=== PATIENT | male | born 1960 | race Caucasian/White ===

== ENCOUNTER 2016-07-14 18:48 | Inpatient (IN) | payer MEDICARE ==
[~2016-07-14] VITALS: Ht 182.9 cm; Wt 97.5 kg
[~2016-07-14 18:48] MED LIST: ACETAMINOPHEN500 M1 PO; CIALIS5 MG PO; GLUCOPHAGE1000 MG; HYDROCODONE-APA1 TAB PO; IPRAT-ALBUT 0.5-3 ML UPD; K-DUR20 MEQ PO; MEGACE40 MG PO; MULTIPLE VITAMI1 TA1 PO; ORAPRED ODT30 MG/TAB PO; PREDNISONE10 MG PO; PREDNISONE20 MG PO; PRILOSEC20 MG PO; TESTOSTERON200 MG/ML IM; VITAMIN B-1000 MCG/M IM
--- NOTE | 2016-07-14 22:25 | NUR ---
2200 PATIENTS PANTS WERE CUT OFF AND STATED THROW THEM AWAY, FREIDA.
--- NOTE | 2016-07-14 22:56 | NUR ---
2200 PATIENT HAS RED SPLOTCHED SKIN, THAT WAS NOTED, FREIDA.
[2016-07-14 23:40] VITALS: BP 154/72
--- NOTE | 2016-07-14 23:41 | NUR ---
RECIEVED PT VIA STRETCHER, ACCOMPANIED BY FAMILY, ASSESSMENT COMPLETED, RIGHT ACW PORT ACCESSED IN OR WITH FLUIDS INFUSING TO GRAVITY, DSG TO LLE CDI, ORIENTED PATIENT TO ROOM AND USE OF CALL LIGHT, NO ACUTE DISTRESS NOTED, WILL CONINUE TO MONITOR, CL IN REACH
[2016-07-14 23:55] VITALS: BP 151/82
--- NOTE | 2016-07-14 23:59 | NUR ---
SPECIAL MACHINE STITCHER SET UP AND INITIATED PER ORDERS, PT EDUCATED ON USE, VOICED UNDERSTANDING, SR'S UP X2, CL IN REACH
[2016-07-15] VITALS (11 sets, daily range): BP systolic 128–157; BP diastolic 65–94; Ht 182.9 cm; Wt 97.5 kg
--- NOTE | 2016-07-15 00:56 | NUR ---
SOLUMEDROL AND VANC ADMINISTERED PER ORDERS, PT MADELEINE WELL, DENIES NEEDS AT THIS TIME, SR'S UP X2, CL IN REACH
[2016-07-15 06:00] LABS: BASOPHILS 0.1 % (0.0-2.0); EOSINOPHILS 0 % (0-7); HEMATOCRIT 39.1 % (42.0-54.0); HEMOGLOBIN 11.6 g/dL (13.5-17.5); IMMATURE GRANULOCYTES 1.3 % (0-5); LYMPHOCYTES 3.1 % (15-50); MCH 22.6 pg (26.0-34.0); MCHC 29.7 g/dL (31.0-37.0); MCV 76.1 fL (80.0-100.0); MEAN PLATELET VOLUME 10.5 fL (7.4-10.4); MONOCYTES 8.7 % (2-11); NEUTROPHILS 86.8 % (40-80); PLATELET COUNT 168 10x3/uL (130-400); RBC 5.14 10x6/uL (4.20-6.10); RDW 21.1 % (11.5-14.5); WBC 18.3 10x3/uL (4.8-10.8)
[2016-07-15 06:25] LABS: ALBUMIN 3.1 g/dL (3.4-5.0); ANION GAP 17.1 mmol/L (8-16); BILIRUBIN - TOTAL 0.53 mg/dL (0.2-1.3); CALCIUM 8.6 mg/dL (8.5-10.1); CARBON DIOXIDE 23.5 mmol/L (21.0-32.0); CREATININE - SERUM 1.3 mg/dL (0.6-1.3); MAGNESIUM - SERUM 1.4 mg/dL (1.8-2.4); POTASSIUM - SERUM 4.6 mmol/L (3.5-5.1)
--- NOTE | 2016-07-15 07:15 | NUR ---
SLEEPING QUIETLY AT PRESENT RESP EVEN AND UNLABORED STRUCTURAL STEEL EQUIPMENT ERECTOR IN PLACE DSG INTACT TO LEFT LOWER LEG AT PRESENT.
--- NOTE | 2016-07-15 09:45 | NUR ---
MEDS GIVEN SKIDDER IN PLACE QUIET N/C AT PRESENT.
--- NOTE | 2016-07-15 12:00 | NUR ---
LUNCH SERVED TAKEN 100
--- NOTE | 2016-07-15 14:00 | NUR ---
VISITORS AT BEDSIDE DSG CONT TO LEFT LOWER LEG AT PRESENT.
--- NOTE | 2016-07-15 16:00 | NUR ---
QUIET IN ROOM AT PRESENT DENIES ANY NEEDS AT THIS TIME.
--- NOTE | 2016-07-15 17:36 | NUR ---
VS PLACED WOUND VAC TO LEFT LOWER LEG.
[2016-07-16] VITALS: BP 142/79
--- NOTE | 2016-07-16 03:51 | NUR ---
REC'D. DURING WALKING ROUNDS IN BED RESP. DEEP AND EVEN.WOUNDVAC INTACT LLE.FOOT WARM HYPERSENSITIVE TO TOUCH.PEDAL PULSE PRESENT.MINIMAL SWELLING OBSERVED DENIES NUMBNESS. WILL CONTINUE TO MONITOR FOR ANY CHGES.IN NEUROVASCULAR STATUS AND FOLLOW CURRENT PLAN OF CARE.
--- NOTE | 2016-07-16 03:57 | NUR ---
PT IS AWAKE WITH THE TV ON AND NO DISTRESS NOTED. HE TALKED WITH THIS NURSE FOR A SHORT TIME AND STATED HE HAD NO NEEDS OR COMPLAINTS AT THIS TIME. RESPIRATIONS ARE EVEN AND UNLABORED. THE BED IS LOW, RAILS UP X'S 2 WITH THE CALL LIGHT AT HAND.
[2016-07-16 04:00] VITALS: BP 112/70
--- NOTE | 2016-07-16 08:16 | NUR ---
AWAKE AND ALERT. ORIENTED X3. NO C/O AT THIS TIME. LUNGS ARE CLEAR BILATERALLY, NO COUGH NOTED. SKIN IS INTACT WITHOUT REDNESS EXCEPT WOUND TO LEFT LEG WHICH HAS A WOUND VAC IN PLACE WITH SEROUS SANGUINESS OUTPUT. RIGHT PORT PATENT WITHOUT REDNESS AT INSERTION SITE. DENIES NEEDS.
[2016-07-16 08:25] VITALS: BP 120/70
--- NOTE | 2016-07-16 09:15 | NUR ---
VANC TROUGH 3.9.
--- NOTE | 2016-07-16 10:00 | NUR ---
RESTING QUIETLY IN BED. VISITORS IN ROOM.
--- NOTE | 2016-07-16 12:15 | NUR ---
LUNCH SERVED IN ROOM. FEEDS SELF. DENIES NEEDS.
[2016-07-16 12:48] VITALS: BP 151/79
--- NOTE | 2016-07-16 16:00 | NUR ---
DRESSING CHANGED TO RIGHT PORT USING STERILE TECHNIQUE. NEEDLE ALSO CHANGED AT THIS TIME.
[2016-07-16 16:26] VITALS: BP 134/73
--- NOTE | 2016-07-16 17:00 | NUR ---
FSBS 240. GIVEN 8 UNITS REGULAR INSULIN SUBQ PER SS. SUPPER SERVED IN ROOM.
--- NOTE | 2016-07-16 18:46 | NUR ---
NO CHANGES NOTED AT THIS TIME. DENIES NEEDS.
--- NOTE | 2016-07-16 19:54 | NUR ---
FROM 1919-PT SEEN AND ASSESSED. COMPLAINTS OF ACHY AND BURNING FROM WOUND VAC TO LEFT LEG BUT STATES COMPANY TRUCK DRIVER HELPS. FLUSHED APPEARANCE BUT IS ON STERIODS. STATES FOR SURGERY FOR SKIN GRAFT ON MONDAY. NO NEEDS AT THIS TIME
[2016-07-16 20:00] VITALS: BP 130/72
[2016-07-17] VITALS: BP 107/66
--- NOTE | 2016-07-17 00:47 | NUR ---
REC'D IN BED AWAKE AND ALERT. NO C/O NOTED OR VOICED. C/L IN REACH AT BEDSIDE.
[2016-07-17 04:00] VITALS: BP 137/80
--- NOTE | 2016-07-17 07:25 | NUR ---
PATIENT RECEIVED ALERT IN BED. NO SIGNS OF DISTRESS NOTED. WOUND VAC INTACT. SIDE RAILS UP X2. BED IN LOW POSITION. CALL LIGHT AND ECONOMIC DEVELOPMENT SPECIALIST BUTTON IN REACH. DENIES NEEDS. WILL CONTINUE TO MONITOR.
[2016-07-17 07:56] VITALS: BP 127/77
--- NOTE | 2016-07-17 08:25 | NUR ---
PATIENT ALERT IN BED WATCHING TV. NO SIGNS OF DISTRESS NOTED. SCHEDULED MEDICATION ADMINISTERED. DENIES NEEDS. SIDE RAILS UPX 2. BED IN LOW POSITION. CALL LIGHT IN REACH.
[2016-07-17 11:38] LABS: BASOPHILS 0.1 % (0.0-2.0); EOSINOPHILS 0 % (0-7); HEMATOCRIT 36.2 % (42.0-54.0); HEMOGLOBIN 11.1 g/dL (13.5-17.5); LYMPHOCYTES 3.8 % (15-50); MCH 22.8 pg (26.0-34.0); MCHC 30.7 g/dL (31.0-37.0); MCV 74.5 fL (80.0-100.0); MEAN PLATELET VOLUME 10.3 fL (7.4-10.4); MONOCYTES 9.1 % (2-11); PLATELET COUNT 147 10x3/uL (130-400); RBC 4.86 10x6/uL (4.20-6.10); RDW 20.5 % (11.5-14.5); WBC 16.1 10x3/uL (4.8-10.8)
--- NOTE | 2016-07-17 11:42 | NUR ---
PATIENT ALERT IN BED. NO SIGNS OF DISTRESS NOTED. ACCU CHECK 235. INSULIN PER SLIDING SCALE. DENIES NEEDS. SIDE RAILS UP X2. BED IN LOW POSITION. CALL LIGHT IN REACH.
[2016-07-17 11:58] LABS: ANION GAP 14.3 mmol/L (8-16); BILIRUBIN - TOTAL 0.45 mg/dL (0.2-1.3); CARBON DIOXIDE 25.7 mmol/L (21.0-32.0); CREATININE - SERUM 1.3 mg/dL (0.6-1.3)
[2016-07-17 13:02] VITALS: BP 146/84
--- NOTE | 2016-07-17 14:00 | NUR ---
ALERT IN BED VISITING WITH GUESTS. LEFT LEG ELEVATED. DENIES NEEDS. SIDE RAILS UP X2. BED IN LOW POSITION. CALL LIGHT AND CHILD SPECIALIST BUTTON IN REACH.
[2016-07-17 15:56] VITALS: BP 133/82
--- NOTE | 2016-07-17 19:30 | NUR ---
REC'D IN BED AWAKE AND ALERT. RESP EVEN AND UNLABORED WITH NO DISTRESS NOTED. CAN VOICE NEEDS AND WANTS. TURN AND REPOSITION SELF AB JOÃO. HAS WOUND VAC IN USE. ASSESSMENT COMPLETED. C/L IN REACH AT BEDSIDE.
[2016-07-17 21:00] VITALS: BP 140/81
[2016-07-18 01:00] VITALS: BP 134/68
[2016-07-18 04:00] VITALS: BP 112/70
--- NOTE | 2016-07-18 06:09 | NUR ---
PT IN BED WITH NO NEEDS AT THIS TIME. RIGHT PORT PATENT AND FLUIDS ARE RUNNING PER ORDER. DRESSING TO LEFT LOWER OUTER LEG C/D/I. WOUND VAC PATENT. ASSEMBLYMAN OR WOMAN IN PLACE FOR PAIN CONTROL. SIDE RAILS ARE UP X 2. BED IS LOW. CALL LIGHT IN REACH.
--- NOTE | 2016-07-18 07:15 | NUR ---
PATIENT RECEIVED ALERT IN HIGH MORRIS POSITION. NO SIGNS OF DISTRESS NOTED. DENIES NEEDS. SIDE RAILS UP X2. BED IN LOW POSITION. CALL LIGHT IN REACH.
[2016-07-18 07:39] LABS: ALBUMIN 2.8 g/dL (3.4-5.0); ANION GAP 17.4 mmol/L (8-16); BILIRUBIN - TOTAL 0.33 mg/dL (0.2-1.3); CALCIUM 8.3 mg/dL (8.5-10.1); CARBON DIOXIDE 21.9 mmol/L (21.0-32.0); CREATININE - SERUM 1.1 mg/dL (0.6-1.3); POTASSIUM - SERUM 4.3 mmol/L (3.5-5.1); PROTEIN - SERUM 5.2 g/dL (6.4-8.2)
[2016-07-18 07:51] LABS: BASOPHILS 0.1 % (0.0-2.0); EOSINOPHILS 0 % (0-7); HEMATOCRIT 34.2 % (42.0-54.0); HEMOGLOBIN 10.3 g/dL (13.5-17.5); IMMATURE GRANULOCYTES 2.4 % (0-5); MCH 22.4 pg (26.0-34.0); MCHC 30.1 g/dL (31.0-37.0); MCV 74.5 fL (80.0-100.0); MEAN PLATELET VOLUME 10.6 fL (7.4-10.4); NEUTROPHILS 85.5 % (40-80); PLATELET COUNT 146 10x3/uL (130-400); RBC 4.59 10x6/uL (4.20-6.10); RDW 20.7 % (11.5-14.5)
--- NOTE | 2016-07-18 08:12 | NUR ---
PATIENT ALERT IN HIGH MORRIS POSITION EATING BREAKFAST. TOLERATING WELL. SCHEDULED MEDICATION ADMINISTERED. SIDE RAILS UP X2. BED IN LOW POSITION. CALL LIGHT IN REACH.
--- NOTE | 2016-07-18 08:28 | NUR ---
Patient Name: THOR JAMES Admission Status: ER Accout number: [id number] Admission Date: 07-14-2016 : 1960 Admission Diagnosis:LACERATION WITHOUT FOREIGN BODY, LEFT LOWER LEG, INIT E Attending: SAM Current LOS: 4 Anticipated DC Date: Planned Disposition: Primary Insurance: [employer] CHOICE PPO MCR ADVANT Discharge Planning Comments: CM MET WITH PATIENT WITH D/C NEEDS AND PLANS. PATIENT STATED HE LIVES WITH HIS (LEA) AND SHE WILL TAKE HIM HOME AT DISCHARGE. PATIENT STATED HE HAS NO STEPS OR STAIRS AT HIS HOME. PATIENT IS INDEPENDENT WITH HIS CARE AND HAS A WALKER, WHEELCHAIR, AND CANE AT HOME. PATIENTS PCP IS DR. TEJEDA AND USES [facility] AT [facility] FOR HIS PHARMACY. PATIENT STATED HE DOES NOT WANT HOME HEALTH AT DISCHARGE. CM WILL CONTINUE TO FOLLOW PATIENT WITH D/C NEEDS AND PLANS. PCP DR. TEJEDA [facility] - [phone] [facility] - [phone] Clinical Support Nurse: Bianca Vanegas Is the patient Alert and Oriented? Yes 0 * How many steps to enter\exit or inside your home? 0 0 * PCP DR. TEJEDA 0 * Pharmacy [facility] 0 * Preadmission Environment Home with Family 0 * ADLs Independent 0 * Equipment Cane Walker Wheelchair 0 * List name and contact numbers for known caregivers / representatives who currently or will assist patient after discharge: LEA () [phone] * Community resources currently utilized None 0 * Additional services required to return to the preadmission environment? Yes 0 * Can the patient safely return to the preadmission environment? Yes 0 * Has this patient been hospitalized within the prior 30 days at any hospital? No 0 Grand Total: 0
[2016-07-18 08:36] VITALS: BP 128/77
--- NOTE | 2016-07-18 11:22 | NUR ---
PATIENT ALERT IN BED. NO SIGNS OF DISTRESS NOTED. ACCU CHECK 239. INSULIN PER SLIDING SCALE. DENIES NEEDS. SIDE RAILS UP X2. BED IN LOW POSITION. CALL LIGHT IN REACH.
[2016-07-18 12:28] VITALS: BP 109/70
--- NOTE | 2016-07-18 13:26 | NUR ---
WOUND VAC DRESSING CHANGE PER VERBAL ORDER FROM DR. RICHARDSON. LEFT LOWER LE.5CM X 7.5CM X 0.9CM. GENTLY CLEANSED AND PATTED DRY. CAVALON SKIN PREP APPLIED TO SURROUNDING SKIN. ONE PIECE OF BLACK FOAM APPLIED TO WOUND BED. PT TOLERATED WELL. WOUND CARE WILL CONTINUE TO MONITOR.
--- NOTE | 2016-07-18 14:40 | NUR ---
PATIENT ALERT IN BED WATCHING TV. NO SIGNS OF DISTRESS NOTED. CONSENT OBTAINED FOR SCHEDULED PROCEDURE. DENIES NEEDS. SIDE RAILS UP X2. BED IN LOW POSITION. CALL LIGHT AND CABLE REPAIRER BUTTON IN REACH.
[2016-07-18 16:45] VITALS: BP 149/73
--- NOTE | 2016-07-18 17:35 | NUR ---
ALERT IN BED TALKING ON PHONE. NO SIGNS OF DISTRESS NOTED. NO NEEDS VOICED. SIDE RAILS UP X2. BED IN LOW POSITION. CALL LIGHT IN REACH.
--- NOTE | 2016-07-18 19:45 | NUR ---
PATIENT IN SEMI-FOWLERS POSITION. PATIENT DOES NOT NEED ANYTHING AT THIS TIME.
[2016-07-18 21:00] VITALS: BP 143/82
[2016-07-19 01:00] VITALS: BP 144/77
[2016-07-19 04:00] VITALS: BP 136/80
[2016-07-19 05:05] LABS: BASOPHILS 0.1 % (0.0-2.0); EOSINOPHILS 0 % (0-7); HEMOGLOBIN 10.5 g/dL (13.5-17.5); IMMATURE GRANULOCYTES 2.4 % (0-5); LYMPHOCYTES 4.1 % (15-50); MCH 22.3 pg (26.0-34.0); MCV 74.5 fL (80.0-100.0); MEAN PLATELET VOLUME 10.2 fL (7.4-10.4); MONOCYTES 10.4 % (2-11); PLATELET COUNT 155 10x3/uL (130-400); RDW 20.6 % (11.5-14.5); WBC 11.7 10x3/uL (4.8-10.8)
[2016-07-19 05:43] LABS: ALBUMIN 2.9 g/dL (3.4-5.0); ANION GAP 16.4 mmol/L (8-16); BILIRUBIN - TOTAL 0.44 mg/dL (0.2-1.3); CALCIUM 8.2 mg/dL (8.5-10.1); CARBON DIOXIDE 22.8 mmol/L (21.0-32.0); CREATININE - SERUM 1.2 mg/dL (0.6-1.3); POTASSIUM - SERUM 4.2 mmol/L (3.5-5.1); PROTEIN - SERUM 5.8 g/dL (6.4-8.2)
--- NOTE | 2016-07-19 07:40 | NUR ---
ASSESSMENT PER FLOW SHEET.PT WITHOUT DISTRESS.WOUND VAC TO LLE ON AND FUNCTIONING.PT STATES PAIN 7/10 SCALE TO LEFT LOWER LEG, LEAK PATCHER USE INSTRUCTED.NPO FOR SURGEY TODAY.HEPI CLENS AND BED CHANGE COMPLETE.CONSENTS ON CHART.
[2016-07-19 08:00] VITALS: BP 117/66
[2016-07-19 11:44] VITALS: BP 119/70
--- NOTE | 2016-07-19 13:14 | NUR ---
NUTRITION MONITORING & EVAL CHART REVIEWED. SURGERY RESCHEDULED. ADA DIET WITH 100% INTAKE RECENT MEALS. RD FOLLOWING
[2016-07-19 15:58] VITALS: BP 143/74
--- NOTE | 2016-07-19 19:00 | NUR ---
PATIENT SUPINE IN BED WATCHING TV. HOB 20 DEGREES. AAOX4. RR EVEN AND UNLABORED. 0 S/S OF DISTRESS. STATES PAIN IS A 9/10. RIGHT PORT PATENT WITH NO REDNESS OR SWELLING. WOUND VAC TO LLE WITH BANDAGE CDI. SRX2. BED LOW. CALL LIGHT WITHIN REACH.
[2016-07-19 21:00] VITALS: BP 139/68
[2016-07-20 01:00] VITALS: BP 133/66
[2016-07-20 05:39] LABS: BASOPHILS 0.2 % (0.0-2.0); EOSINOPHILS 0 % (0-7); HEMOGLOBIN 10.9 g/dL (13.5-17.5); IMMATURE GRANULOCYTES 2.9 % (0-5); LYMPHOCYTES 4.5 % (15-50); MCH 22.6 pg (26.0-34.0); MCHC 30.3 g/dL (31.0-37.0); MCV 74.7 fL (80.0-100.0); MEAN PLATELET VOLUME 10.2 fL (7.4-10.4); NEUTROPHILS 83.4 % (40-80); PLATELET COUNT 157 10x3/uL (130-400); RBC 4.82 10x6/uL (4.20-6.10); RDW 20.3 % (11.5-14.5); WBC 11.2 10x3/uL (4.8-10.8)
[2016-07-20 06:09] LABS: ALBUMIN 2.9 g/dL (3.4-5.0); BILIRUBIN - TOTAL 0.5 mg/dL (0.2-1.3); CALCIUM 7.9 mg/dL (8.5-10.1); CARBON DIOXIDE 24.1 mmol/L (21.0-32.0); CREATININE - SERUM 1.2 mg/dL (0.6-1.3); POTASSIUM - SERUM 4.1 mmol/L (3.5-5.1); PROTEIN - SERUM 5.7 g/dL (6.4-8.2)
[2016-07-20 07:55] VITALS: BP 134/68
--- NOTE | 2016-07-20 08:20 | NUR ---
ASSESSMEN TPER FLOW SHEET.NPO FOR SURGEY TODAY.HEPI CLENS BATH HAS BEEN COMPLETED.CONSENTS ON CHART.
[2016-07-20 12:05] VITALS: BP 133/76
--- NOTE | 2016-07-20 14:58 | NUR ---
REMAINS NPO FOR SURGERY TODAY.FAMILY AT BEDSIDE.
[2016-07-20 15:38] VITALS: BP 127/72
--- NOTE | 2016-07-20 16:00 | NUR ---
TO OR VIA BED
--- NOTE | 2016-07-20 18:20 | NUR ---
BACK FROM OR,WOUND VAC TO LEFT LOWER LEG IN PLACE AND FUNCTIONING.PT AWAKE AND ALERT,DENIES PAIN.PREVIOUS ORDERS RESUMED.VSS,CONT PLAN OF CARE
[2016-07-20 18:21] VITALS: BP 144/83
--- NOTE | 2016-07-20 19:00 | NUR ---
PATIENT IN BED EATING. AAOX4. RR EVEN AND UNLABORED. 0 S/S OF DISTRESS. STATES PAIN IS AN 8/10. IV TO LEFT WRIST PATENT WITH NO REDNESS OR SWELLING. WOUND VAC TO LLE. AT BEDSIDE. SRX2. BED LOW. CALL LIGHT WITHIN REACH.
[2016-07-20 20:00] VITALS: BP 135/71
--- NOTE | 2016-07-20 22:00 | NUR ---
ASSESSMENT COMPLETE. NIGHTTIME MEDS GIVEN. 8 UNITS HUMULIN GIVEN FOR BS OF 187. NO OTHER NEEDS AT THIS TIME.
[2016-07-21] VITALS: BP 128/73
[2016-07-21 04:00] VITALS: BP 135/81
--- NOTE | 2016-07-21 05:47 | NUR ---
IV TO LEFT WRIST LEAKING. ACCESSED PORT TO RIGHT CHEST.
[2016-07-21 07:05] LABS: BASOPHILS 0.1 % (0.0-2.0); EOSINOPHILS 0 % (0-7); HEMATOCRIT 38.2 % (42.0-54.0); HEMOGLOBIN 11.4 g/dL (13.5-17.5); IMMATURE GRANULOCYTES 2.1 % (0-5); LYMPHOCYTES 7.8 % (15-50); MCH 22.4 pg (26.0-34.0); MCHC 29.8 g/dL (31.0-37.0); MCV 75.2 fL (80.0-100.0); MEAN PLATELET VOLUME 10.3 fL (7.4-10.4); MONOCYTES 5.3 % (2-11); NEUTROPHILS 84.7 % (40-80); PLATELET COUNT 162 10x3/uL (130-400); RBC 5.08 10x6/uL (4.20-6.10); RDW 20.6 % (11.5-14.5); WBC 10.9 10x3/uL (4.8-10.8)
[2016-07-21 07:11] LABS: ALBUMIN 2.9 g/dL (3.4-5.0); BILIRUBIN - TOTAL 0.5 mg/dL (0.2-1.3); CARBON DIOXIDE 25.2 mmol/L (21.0-32.0); CREATININE - SERUM 1.2 mg/dL (0.6-1.3); POTASSIUM - SERUM 4.2 mmol/L (3.5-5.1); PROTEIN - SERUM 5.8 g/dL (6.4-8.2)
[2016-07-21 07:56] VITALS: BP 145/74
[2016-07-21 12:02] VITALS: BP 143/74
--- NOTE | 2016-07-21 15:20 | NUR ---
07/21/2016 15:18 DCP: Discharge Planning Order rec'd for home wound vac - submitted to [facility] for approval. Patient has chosen [facility] for home health provider. ZACH signed. CM will follow.
[2016-07-21 15:31] VITALS: BP 146/80
[2016-07-21] MEDS ORDERED: HYDROCODON-ACE1 EAC7 PO (16:03)
--- NOTE | 2016-07-21 16:05 | NUR ---
07/21/2016 16:01 DCP: Discharge Planning Wound Vac order has been submitted to [facility]. Patient & spouse are insisting they go home today. Nursing has gotten a Wound Vac Via order from Dr. Cortes along with a discharge order. Ava (spouse) will follow up with [facility] & Junior regarding status of home wound vac. referral faxed and called to Viviane with [facility].
--- NOTE | 2016-07-21 18:04 | NUR ---
DISCHARGE INSTRUCTIONS GIVEN AND EXPLAINED TO PT. D/C RT INFUSAPORT AND BANDAID APPLIED. D/C VIA WHEELCHAIR IN STABLE CONDITION. WOUND VAC TO LLE INTACT AND SEND HOME WITH PT.
--- NOTE | 2016-07-22 11:12 | NUR ---
07/22/2016 11:13 DCP: Discharge Planning Signed wound vac order has been faxed to Janine with [facility]. Patients insurance will require referral. Info for referral left for Dr. Cortes.
--- NOTE | 2016-09-14 10:17 | OP ---
PATIENT NAME: THOR JAMES MEDICAL RECORD: [id number] :58 LOCATION:D.MS [place] ADMISSION DATE:07/14/16 SURGEON: RAPHAEL ARZOLA MD DATE OF OPERATION: 07/20/2016 PREOPERATIVE DIAGNOSIS: Avulsion flap type of injury to the left leg. POSTOPERATIVE DIAGNOSIS: Avulsion flap type of injury to the left leg with almost a complete flap necrosis. PROCEDURES: Excisional debridement of left leg, placement of a wound VAC. The debridement included skin and subcutaneous tissue. The debrided portion was 10 cm x 6 cm x 8 cm including skin and subcutaneous tissue. The resulting defect was roughly V-shaped was a 12.8 cm x 11.2 cm x 9.8 cm. SURGEON: Raphael Arzola MD. RN ENDOSCOPY: None. BLOOD LOSS: Minimal. ANESTHESIA: General. COMPLICATIONS: None. The risks, possible complications and alternatives to procedure were explained to the patient. He elects to proceed. OPERATIVE COURSE: The patient was conveyed to the operating room electively on 07/20/2016. General anesthesia was induced by the anesthesia staff. The left lower extremity was sterilely prepped and draped. The end of the flap was clearly necrotic. I began making transverse incisions starting at the distal aspect of the flap and proceeding cephalad. These were about 1 cm to 2 cm apart. I found thrombosed blood vessels and necrotic adipose tissue. I continued these incisions up the flap until I identified a fatty tissue that was alive and had blood flow to it. At this point, I transected the flap. The dimensions of the transection are listed above. Some additional subcutaneous necrotic fatty tissue at the inferior aspect of the wound was excised. The resulting defect as listed above. A wound VAC was then applied. Cellophane type dressings were applied over the wound VAC. The cellophane type dressings were scored and the wound VAC sponge was attached to suction through the suction disc. It held a good "raisin" indicating suction without leakage of air. TRANSINT:[id number] Voice Confirmation ID: [id number] DOCUMENT ID: [id number] RAPHAEL ARZOLA MD at 1017 CC: MICHAEL CORTEZ M.D. [id number] DICTATION DATE: 07/20/161741 HAZARDOUS MATERIALS HANDLER: 07/20/16 2307 DIS IN 07/21/16 [facility] [address] [place] [address]
--- NOTE | 2016-09-14 10:17 | HP ---
PATIENT: THOR JAMES MEDICAL RECORD: [id number] ACCOUNT: [id number] LOCATION:D.MS [place] : 58 ADMISSION DATE: 07/14/16 HISTORY AND PHYSICAL EXAMINATION CHIEF COMPLAINT: Laceration. HISTORY OF PRESENT ILLNESS: The patient presented to the Emergency Room about 45 minutes ago with a very deep cut at the left lower extremity. It appears to go down to the anterior muscular fascia, which would be the fascia and muscle that would dorsiflex the foot. The thing that is worrisome is that this is a watershed area of arterial circulation. Additionally, the patient is a diabetic and he is on prednisone, so this could be a very difficult wound to heal up. I think we need to take him to the operating room and heal it up, it is a skived wound. There is exposed muscle. There is exposed fascia. Like I said, this could be a very difficult wound to heal up. Symptoms came on suddenly. They are not worsening. Palpation aggravates. Nothing alleviates. It is jagged and deep. It is currently not bleeding. He describes the pain as a 9/10. REVIEW OF SYSTEMS: Positive for night sweats. Positive for weight loss. No anorexia. SOCIAL HISTORY: Nonsmoker. PAST MEDICAL AND SURGICAL HISTORY: Crohn's disease, diabetes mellitus, which is noninsulin dependent and squamous cell cancer. ALLERGIES: TOPROL. HOME MEDICINES: Prednisone, omeprazole, metformin, vitamin B12. He is on chemotherapy for squamous cell cancers on the face, multivitamins, potassium chloride and hydrocodone. REVIEW OF SYSTEMS: Negative other than as is described above. PHYSICAL EXAMINATION: GENERAL: The patient does not appear acutely ill. He does appear chronically ill. VITAL SIGNS: Reviewed. HEAD: External ears appear normal. He has a pradeep face. EYES: Extraocular movements are intact. NECK: Trachea is midline. CHEST: No intercostal retractions. PULMONARY: Nonlabored, no stridor. ABDOMEN: Protuberant. EXTREMITIES: As described above. PSYCHIATRIC: Normal affect. NEUROLOGIC: Nonfocal, no lethargy. The patient answers questions appropriately. BACK: No thoracic kyphosis. LYMPHATICS: No lymphangitic streaking of the exposed extremities. IMPRESSION: Large jagged irregular skived laceration with a flap that is watershed area in a patient who has impaired wound healing. HISTORY AND PHYSICAL [id number] THOR JAMES PLAN: Conveyed to the operating room. Washed out the wound there and then repaired the wound. TRANSINT:[id number] Voice Confirmation ID: [id number] DOCUMENT ID: [id number] CHARLIE ARZOLA MD at 1017 CC: [id number] DICTATION DATE: 07/14/161934 PROGRAM DIRECTOR SUBSTANCE ABUSE: 07/14/162020 DIS IN 07/21/16 [place] [id number] [place] [id number]
--- NOTE | 2016-09-14 10:17 | OP ---
PATIENT NAME: THOR JAMES MEDICAL RECORD: [id number] :58 LOCATION:D.MS [place]6 ADMISSION DATE:07/14/16 SURGEON: CHARLIE ARZOLA MD DATE OF OPERATION: 07/14/2016 PREOPERATIVE DIAGNOSIS: Severe laceration to the left leg. Please see dimensions below. POSTOPERATIVE DIAGNOSIS: Severe laceration to the left leg. It involved the skin and subcutaneous tissues. There was very large flap. The flap was ischemic. The dimensions of the laceration are 14 cm x 8 cm x 10.5 cm. It is a U-shaped laceration. It somewhat shaped like a tongue. The inferior portion of the flap was already ischemic. There was very little blood flow and almost no blood flow during manipulation of the tissues. I had to excise the ischemic portions of the flap. I was unable to mobilize enough tissue in order to completely cover the defect. After suturing down the tongue of tissue and performing debridement, there was a triangular portion of the exposed fascia that measured 6.2 x 4.8 x 5.0 cm and was triangular in shape. PROCEDURE: Complex repair of left leg laceration with extensive debridement, extensive revision, irrigation and lavage. SURGEON: Charlie Arzola MD BLOOD LOSS: Minimal. ANESTHESIA: General. COMPLICATIONS: None. Unfortunately, this laceration is skived. There is a large flap. There is very little blood flow and it is in a watershed area of the body where there is very poor arterial blood flow. I told the patient about this ahead of time. I am fearful that he is not going to heal up his wound very well. It is going to take a long time to heal. I think he is going to require multiple debridements and likely he is going to require a wound VAC to stimulate the granulation base and then ultimately, a skin graft. OPERATIVE COURSE: The patient was conveyed to the operating room emergently on 07/14/2016. General anesthesia was induced by the anesthesia staff. The left lower extremity was sterilely prepped and draped. Utilizing the pulse service desk director and aspirator, I cleansed the tissue. The debridement was carried out with a scapel as well as with the electrocautery. Ischemic portion of the flap had to be excised as well. Subcutaneous flaps were created around the edges of the U-shaped flap in order to help mobilize some additional tissue. This was done sharply. I was able to essentially suture both of sides of the flap to the surrounding tissues. The subcutaneous tissue was weak probably due to steroid use and would not maintain Vicryl sutures to keep it in place so this was a 1-layer closure. It consists of multiple interrupted horizontal mattress 2-0 and 3-0 nylons as well as some vertical mattress nylons. The dimensions are listed above. A saline wet to dry dressing has been applied. We are going to keep the patient on intravenous antibiotics. My plan will be to take him back in several more days as he will likely require a debridement at that point and likely require a wound VAC. OPERATIVE REPORT [id number] ERIKATHOR TRANSINT:[id number] Voice Confirmation ID: [id number] DOCUMENT ID: [id number] CHARLIE ARZOLA MD at 1017 CC: KANIKA TEJEDA MD and MICHAEL CORTEZ M.D. [id number] DICTATION DATE: 07/14/16 2256 HEALTH SCIENCE INSTRUCTOR: 07/15/16 0052 DIS IN 07/21/16 [facility] [address] [place] [address]
[2016-09-26] MEDS ORDERED: LOMOTIL TABLET1 TAB PO (08:16)
[2016-09-26] MEDS ORDERED: MEGACE40 MG PO (08:16)
[2016-09-26] MEDS ORDERED: PROAIR HFA8.5 GM INH (08:17)
[2016-09-27] MEDS ORDERED: [UNRECOGNIZED DRUG - OTHER] TOPICAL (07:06)
--- NOTE | 2016-10-14 09:40 | DS ---
PATIENT:THOR JAMES :58 MEDICAL RECORD: [id number] DISCHARGE SUMMARY ADMISSION DATE: 07/14/16 DISCHARGE DATE: 07/21/16 PRINCIPAL DIAGNOSIS: Accident with large jagged irregular skived laceration with a flap that is over the left can. OTHER DIAGNOSES: Include Crohn's disease, diabetes mellitus, non-insulin dependent diabetes mellitus, also history of squamous cell cancers, gastroesophageal reflux, neuropathy, history fatty liver, history of cholecystectomy, history of colon surgery, history of hip surgery, history knee surgery, history of colon resections due to Crohn's disease. PROCEDURE: Include complex repair of the left leg laceration with extensive debridement, extensive revision, irrigation and lavage. The patient underwent the above operative procedure. SECONDARY PROCEDURE: Excisional debridement of left leg with placement of a wound VAC. Please see the operative note. HOSPITAL COURSE: The patient was admitted through the Emergency Room. He underwent initial operative procedure. He had necrosis most of the skin flap and had to undergo a secondary operative procedure. A wound VAC was placed. My plan is for the patient to go home with a wound VAC in place. Once the patient develops significant granulation base, then we will plan to skin graft this injured site involving the left can. That is in a watershed area of body, so it is going to be difficult to heal up a skin graft. TRANSINT:[id number] Voice Confirmation ID: [id number] DOCUMENT ID: [id number] CHARLIE ARZOLA MD at 0940 CC: KANIKA TEJEDA MD and MICHAEL CORTEZ M.D. [id number] DICTATION DATE: 09/03/16 0245 DENTAL OFFICER: 09/03/16 1742 DIS IN 07/21/16 [facility] [address] [place] [id number]
== END 2016-07-21 18:06 | disposition home health service (06) | DRG 571 ==
LOC: D.ER 18:48 → D.MS 23:37
PROVIDERS: Family Medicine; ADMIT Surgery
PROC: 0JBP0ZZ Excision of Left Lower Leg Subcutaneous Tissue and Fascia, Open Approach (ICD-10-PCS; principal; 2016-07-14 21:54)
PROC: 0JBP0ZZ Excision of Left Lower Leg Subcutaneous Tissue and Fascia, Open Approach (ICD-10-PCS; 2016-07-20)
DX: S81.812A Laceration without foreign body, left lower leg, initial encounter (principal); K50.90 Crohn's disease, unspecified, without complications; D62 Acute posthemorrhagic anemia; W22.8XXA Striking against or struck by other objects, initial encounter; E11.9 Type 2 diabetes mellitus without complications; J44.9 Chronic obstructive pulmonary disease, unspecified; C44.92 Squamous cell carcinoma of skin, unspecified; R19.7 Diarrhea, unspecified

== ENCOUNTER 2016-09-29 05:50 | Day surgery (SDC) | payer MEDICARE ==
[2016-09-27 06:37] LABS: BASOPHILS 0.1 % (0.0-2.0); EOSINOPHILS 0.5 % (0-7); HEMATOCRIT 40.1 % (42.0-54.0); LYMPHOCYTES 18.8 % (15-50); MCH 24.6 pg (26.0-34.0); MCHC 29.9 g/dL (31.0-37.0); MCV 82.2 fL (80.0-100.0); MEAN PLATELET VOLUME 9.3 fL (7.4-10.4); MONOCYTES 10.3 % (2-11); NEUTROPHILS 69.3 % (40-80); RBC 4.88 10x6/uL (4.20-6.10); RDW 19.1 % (11.5-14.5); WBC 10.7 10x3/uL (4.8-10.8)
[2016-09-27 06:38] LABS: PLATELET COUNT 195 10x3/uL (130-400)
[2016-09-27 06:53] LABS: APTT 26.7 SECONDS (22.8-39.4); INR 0.97 (0.85-1.17); PROTIME 12.7 SECONDS (11.6-15.0)
[2016-09-27 07:13] LABS: CALC OSMOLALITY 285 mosm/kg (275-300); CALCIUM 8.6 mg/dL (8.5-10.1); CARBON DIOXIDE 24.6 mmol/L (21.0-32.0); CHLORIDE - SERUM 107 mmol/L (98-107); GLUCOSE 94 mg/dL (74-106); POTASSIUM - SERUM 3.5 mmol/L (3.5-5.1); SODIUM 144 mmol/L (136-145); UREA NITROGEN 9 mg/dL (7-18); eGFR NON AFRICAN AMERICAN 82 mL/min (90-120)
[2016-09-27 07:15] VITALS: BP 114/78; BMI 26.1
--- NOTE | 2016-09-27 10:02 | NUR ---
SURGERY CANCAL DUE TO BR BREVING BEING SICK , WILL RESCHEDULE FOR MONDAY, PORT FLUSHED WITH HEPRIN AND SALINE AND DC
[~2016-09-29] VITALS: Ht 182.9 cm; Wt 87.1 kg
[~2016-09-29 05:50] MED LIST changes: +HYDROCODON-ACE1 EAC7 PO; +LOMOTIL TABLET1 TAB PO; +PROAIR HFA8.5 GM INH; +[UNRECOGNIZED DRUG - OTHER] TOPICAL
[2016-09-29 06:51] VITALS: BP 120/69; Ht 182.9 cm; Wt 87.1 kg
--- NOTE | 2016-09-29 10:09 | NUR ---
PATIENT BROUGHT OWN WOUND VAC AND SUPPLIES FROM HOME.
--- NOTE | 2016-10-14 09:40 | HP ---
PATIENT: THOR JAMES MEDICAL RECORD: [id number] ACCOUNT: [id number] LOCATION:[place] : 58 ADMISSION DATE: 09/29/16 HISTORY AND PHYSICAL EXAMINATION CHIEF COMPLAINT: Wound left leg. HISTORY OF PRESENT ILLNESS: The patient has had a large avulsion of the left can. We tried to debride it and revise the wound; however, it necrosed and the flap had to be excised. We will have the patient on a wound VAC in order to stimulate granulation tissue and this has worked very nicely. I am going to plan to take a skin graft. The patient has meralgia paresthetica from a prior right groin abscess, so we are going to take the skin graft from the right thigh in the area of anesthesia. The patient has outlined with black magic marker the area that is anesthetic involving the right anterior thigh. So the right anterior thigh will be the donor site and the recipient site will be the left leg. The risks, possible complications and alternatives to procedure were explained to the patient. He elects to proceed. ALLERGIES: METOPROLOL. HOME MEDICATIONS: Glucophage, K-Dur, Megace, [facility], omeprazole, prednisone, albuterol. SOCIAL HISTORY: Former smoker, quit in 1993. PAST MEDICAL AND SURGICAL HISTORY: Crohn disease, non-insulin dependent diabetes mellitus, history of skin cancers, gastroesophageal reflux, fatty liver disease, renal stones, small bowel resection, left knee surgery, left hip surgery, cholecystectomy and history of bowel resection. REVIEW OF SYSTEMS: Negative for CVA or hypertension. Negative for coronary artery disease. Negative for thyroid problems. PHYSICAL EXAMINATION: GENERAL: The patient does not appear acutely ill. He does not appear chronically ill. VITAL SIGNS: Reviewed. HEAD: External ears appear normal. EYES: Extraocular movements are intact. NECK: Trachea is midline. CHEST: No intercostal retractions. PULMONARY: Nonlabored, no stridor. ABDOMEN: No peritonitis. IMPRESSION: Large chronic wound left can. PLAN: Will be split thickness skin graft from the right thigh to the left can. TRANSINT:[id number] Voice Confirmation ID: [id number] DOCUMENT ID: [id number] HISTORY AND PHYSICAL [id number] THOR JAMES ROBERT MD at 0940 CC: KANIKA TEJEDA MD [id number] DICTATION DATE: 09/29/16 0826 CRUSHING MACHINE OPERATOR: 09/29/16 0939 [facility] [place] 09/29/16 [facility] [address] [place] [address]
--- NOTE | 2016-10-14 09:40 | OP ---
PATIENT NAME: THOR JAMES MEDICAL RECORD: [id number] :58 LOCATION:D[facility] ADMISSION DATE: SURGEON: CHARLIE ARZOLA MD DATE OF OPERATION: 09/29/2016 PREOPERATIVE DIAGNOSIS: Chronic wound of the left anterior leg (can) please dimensions below. POSTOPERATIVE DIAGNOSIS: Chronic wound of the left anterior leg (can) please dimensions below. PROCEDURE: Wound preparation and then split thickness skin grafting of a 42 cm left chronic anterior can wound. The skin graft was of an inch. It was meshed at 1-1.5. A wound VAC was applied over the skin graft in order to force it down on to the underlying granulation bed, which is an excellent granulation bed. OPERATIVE COURSE: The patient was conveyed to the operating room electively on 09/29/2016. General anesthesia was induced by the anesthesia staff. The right thigh and left lower extremity was sterilely prepped and draped. Wound measurements were taken. I prepared the wound bed by scraping the granulation tissue to stimulate bleeding. I then took 2 strips of skin from the left anterior thigh and area where the patient has some meralgia paresthetica. These 2 strips were of an inch. I then applied a dry laparotomy pad to the donor site and then stapled Xeroform on top of the skin graft donor site. I then trimmed the edges of the Xeroform gauze, which was then wrapped with a sterile dry dressing. Attention was then turned to the skin grafting. I cut the skin graft into 4 different pieces. This was placed in there proper orientation with the slick side down and the rough side up. This was stapled to the surrounding skin with metallic clips. I also sutured a portion of the skin graft together with a running 4-0 chromics. Some of the skin graft edges were sutured to the edges of the skin with 4-0 chromics. I then applied an Adaptic over this. Cellophane-type dressings were applied over the Adaptic. The cellophane-type dressings were scored. I then cut a draining wound VAC sponge to the size of the defect. The cellophane-type dressings were applied over the wound VAC sponge. The cellophane-type dressings were scored. The wound VAC disc was applied. It was attached to suction. This was a low continuous suction only 70-80 mmHg. This should prevent shear of the graft. There was no further bleeding. The patient was then extubated and conveyed to post-anesthesia care unit where he was in stable condition. His next wound VAC change will be next , which is in 7 days in the office. He should not require wound VAC change until then. He is going to be dismissed home on hydrocodone, Zofran as well as [place]. TRANSINT:[id number] Voice Confirmation ID: [id number] DOCUMENT ID: [id number] OPERATIVE REPORT [id number] THOR JAMES, CHARLIE GRAY at 0940 CC: KANIKA TEJEDA MD [id number] DICTATION DATE: 09/29/16 1043 ADULT CAREGIVER: 09/29/161958 [facility] 09/29/16 [facility] [address] [place] [address]
== END 2016-09-29 12:30 | disposition home or self-care (01) ==
LOC: D.OPS 05:50 → D.PAN 08:00 → D.OPS 12:30
PROVIDERS: Anesthesiology
DX: S81.802A Unspecified open wound, left lower leg, initial encounter (principal); K50.90 Crohn's disease, unspecified, without complications; E11.9 Type 2 diabetes mellitus without complications; K21.9 Gastro-esophageal reflux disease without esophagitis; K76.0 Fatty (change of) liver, not elsewhere classified; Z87.442 Personal history of urinary calculi; Z87.891 Personal history of nicotine dependence; Z79.891 Long term (current) use of opiate analgesic; Z79.52 Long term (current) use of systemic steroids; Z79.84 Long term (current) use of oral hypoglycemic drugs

== ENCOUNTER 2017-02-16 23:17 | Day surgery (SDC) | payer MEDICARE ==
[~2017-02-16] VITALS: Ht 182.9 cm; Wt 95.7 kg
[2017-02-17 00:16] LABS: BASOPHILS 0.1 % (0-2); EOSINOPHILS 0.1 % (0-7); HEMATOCRIT 40.9 % (42.0-54.0); HEMOGLOBIN 12.8 g/dL (13.5-17.5); IMMATURE GRANULOCYTES 0.9 % (0-5); LYMPHOCYTES 14.3 % (15-50); MCH 24.1 pg (26.0-34.0); MCHC 31.3 g/dL (31.0-37.0); MEAN PLATELET VOLUME 10.3 fL (7.4-10.4); NEUTROPHILS 73.6 % (40-80); PLATELET COUNT 187 10x3/uL (130-400); RBC 5.31 10x6/uL (4.20-6.10); RDW 19.2 % (11.5-14.5); WBC 14.8 10x3/uL (4.8-10.8)
[2017-02-17 00:18] LABS: APPEARANCE CLEAR (CLEAR); BILIRUBIN NEGATIVE (NEGATIVE); COLOR YELLOW (YELLOW); GLUCOSE 100 mg/dL (NEGATIVE); KETONE NEGATIVE (NEGATIVE); LEUKOCYTE ESTERASE NEGATIVE (NEGATIVE); NITRITE NEGATIVE (NEGATIVE); PROTEIN NEGATIVE (NEGATIVE); UROBILINOGEN NORMAL (NORMAL)
[2017-02-17 00:35] LABS: ALBUMIN 3.7 g/dL (3.4-5.0); ANION GAP 20.4 mmol/L (8-16); BILIRUBIN - TOTAL 0.5 mg/dL (0.2-1.3); CALCIUM 8.7 mg/dL (8.5-10.1); CARBON DIOXIDE 21.4 mmol/L (21.0-32.0); CREATININE - SERUM 1.3 mg/dL (0.6-1.3); POTASSIUM - SERUM 3.8 mmol/L (3.5-5.1); PROTEIN - SERUM 7.2 g/dL (6.4-8.2)
--- NOTE | 2017-02-17 03:00 | NUR ---
RECEIVED BY WC FROM ER. AMBULATED TO BED WITH STEADY GAIT. ALERT/ORIENTED X4. RATES PAIN LEVEL OF LEFT FLANK AT 7 ON NUMBER SCALE. DESCRIBED SHARP, SHOOTING AND RADIATING TO FRONT OF ABD. IV IN R AC INTACT SL. ORDER STATES NPO. GAVE HIM A URINAL AND ADVISED TO CALL US TO STRAIN HIS URINE. ORIENTED TO ROOM AND CALL LIGHT.
--- NOTE | 2017-02-17 03:20 | NUR ---
ADMIN DILAUDID 0.5MG IV FOR C/O LEFT FLANK PAIN LEVEL 8 ON NUMBER SCALE. STARTED IVF PER ORDER TO R AC IV.
[2017-02-17 03:53] VITALS: BP 130/71; Ht 182.9 cm; Wt 95.7 kg
[2017-02-17 04:00] VITALS: BP 130/71
--- NOTE | 2017-02-17 07:40 | NUR ---
ASSESSMENT COMPLETED. PT HAS A LEFT KIDNEY STONE. DENIES ANY PAIN AT PRESENT TIME. RIGHT AC IV WITH NS AT 75. SCALEY LESIONS TO BOTH ARMS. DENIES ANY NEEDS AT PRESENT TIME. SR UP AND CALL LIGHT IN REACH
[2017-02-17 08:58] VITALS: BP 96/66
--- NOTE | 2017-02-17 10:32 | NUR ---
RESTING QUIETLY RESP UNLABORED NAD NOTED
--- NOTE | 2017-02-17 10:38 | NUR ---
UP FOR BATH. NO NEEDS VOICED. WILL MONITOR
[2017-02-17 11:55] VITALS: BP 122/70
--- NOTE | 2017-02-17 13:54 | NUR ---
TO SURGERY PER BED.
--- NOTE | 2017-02-17 16:04 | NUR ---
BACK FROM SURGERY. NO BLEEDING. AWAKE AND ALERT. DENIES ANY NEEDS FAMILY AT BEDSIDE. V/S STABLE. WILL MONITOR
[2017-02-17] MEDS ORDERED: HYDROCODON-ACE1 EAC7 PO (16:12)
[2017-02-17] MEDS ORDERED: FLOMAX0.4 MG PO (16:13)
--- NOTE | 2017-02-17 16:15 | NUR ---
WRITTEN SCRIPT FOR NORCO 5/325 MG 1-2 TABS EVERY 4 HOURS PRN PAIN #20 WITH 0 REFILLS, AND FLOMAX 0.4 MG TAKE 1 AT BEDTIME # 30 WITH NO REFILLS GIVEN TO PATIENT.
--- NOTE | 2017-02-17 18:24 | NUR ---
IV DCD WITH TIP INTACT. V/S STABLE. SMALL AMT BLOOD FROM PENIS. VOIDING WELL . INSTRUCTIONG GIVEN TO PT AND FAMILY. TO ORIVATE CAR PER WHEEL CHAIR.
--- NOTE | 2017-02-18 14:56 | OP ---
PATIENT NAME: THOR JAMES MEDICAL RECORD: [id number] :58 LOCATION:D. D.2137 ADMISSION DATE:02/17/17 SURGEON: RAPHAEL DOE MD DATE OF OPERATION: 02/17/2017 SURGEON: Raphael Doe MD ANESTHESIA: General anesthesia by Dr. Sami Hopkins. PREOPERATIVE DIAGNOSIS: Left distal ureteral stone, 6 mm. POSTOPERATIVE DIAGNOSIS: Left distal ureteral stone 6 mm. FINDINGS: Radiolucent stone. PROCEDURES: Cystoscopy, left ureteroscopy and stone extraction, left ureteral stent insertion 6-Ivorian x 26 cm with string attached. SPECIMENS: Left ureteral stone. COMPLICATIONS: None. ESTIMATED BLOOD LOSS: None. CLINICAL HISTORY: This is a 56-year-old male, who has a prior history of kidney stones. He previously had ureteroscopy by Dr. Fink for a right-sided ureteral stone. He has a history of Crohn disease which predisposes to kidney stones. He also has psoriasis. Yesterday, he developed acute left flank pain radiating down to the left lower quadrant into the testicle. He also had nausea and vomiting. He came to the Emergency Room and a CT scan showed left hydroureteronephrosis due to obstruction from a left distal 6-mm stone. He comes now to have the stone removed by ureteroscopy. HE IS ALLERGIC TO METOPROLOL. We gave him Ancef 2 grams IV economics consultant to the OR. The patient was over 6 feet tall and we are going to use a 26 cm ureteral stent. DESCRIPTION OF PROCEDURE: The patient was given induction of general anesthesia. He was placed in the dorsal lithotomy position and prepped and draped. A 21-Ivorian cystoscope with 30-degree lens was used for visualization. He does have some obstruction at the bladder neck level due to BPH. This made finding the left ureteral orifice somewhat difficult, but we did find it. A Sensor wire was then placed up the ureter into the renal pelvis. Over the wire, a 21-Ivorian x 4 cm long ureteral dilation balloon was placed. The ureteral orifice was dilated to 18 atmospheres of pressure for a few seconds and then the balloon was deflated and the balloon dilator was completely removed. We then removed the cystoscope lens, leaving the sheath and wire in place. The sheath is to protect the patient's urethra from injury from the ureteroscope. The rigid ureteroscope was used and we were able to see the stone. A 4 wire 0-tip basket was placed around the stone. The stone was completely removed. The wire was then backloaded onto the cystoscope and the stent was placed over the wire into the renal pelvis. The wire was then withdrawn to allow the proximal end to coil. The distal end was pushed into the bladder using a pusher. The wire was entirely removed. The bladder was then emptied through the cystoscope and then the cystoscope was removed. The string on the distal end of the stent is maintained. It hangs out of the patient's urethra. The string was tied to itself in a knot and cut shorter. The patient was awakened and brought to the OPERATIVE REPORT [id number] THOR JAMES recovery room. He can go home with discharge prescription for [place] and Flomax. I will see him in the office next week to remove the stent by pulling on the string. TRANSINT:[id number] Voice Confirmation ID: [id number] DOCUMENT ID: [id number] RAPHAEL DOE MD at 1456 CC: [id number] DICTATION DATE: 02/17/17 1523 MANAGER LIFE: 02/17/172027 DIS IN 02/17/17 [facility] [address] [facility] [place] [address]
== END 2017-02-17 18:28 | disposition home or self-care (01) ==
LOC: OBSVTIME → D.ER 23:17 → D.OPS 23:17 → D.M2 02-17 02:23 → D.ER 02-17 02:23 → OBSVTIME 02-17 02:23 → D.M2 02-17 02:23 → D.OPS 02-17 18:28 → D.M2 02-17 18:28
PROVIDERS: Family Medicine
DX: N20.1 Calculus of ureter (principal); L40.9 Psoriasis, unspecified; Z01.810 Encounter for preprocedural cardiovascular examination; Z01.811 Encounter for preprocedural respiratory examination; Z01.812 Encounter for preprocedural laboratory examination

== ENCOUNTER → 2017-05-01 17:16 | Outpatient (CLI) | payer MEDICARE ==
[2017-02-17 03:53] VITALS: BMI 28.7
[~2017-05-01 17:16] MED LIST changes: +FLOMAX0.4 MG PO
== END | disposition home or self-care (01) ==
LOC: D.LABREF 17:16
DX: E11.622 Type 2 diabetes mellitus with other skin ulcer (principal); L97.522 Non-pressure chronic ulcer of other part of left foot with fat layer exposed; L03.116 Cellulitis of left lower limb

== ENCOUNTER → 2017-08-28 09:28 | Outpatient (CLI) | payer MEDICARE ==
[2017-02-17 03:53] VITALS: BMI 28.7
== END | disposition home or self-care (01) ==
LOC: D.MRI 09:28
DX: M79.671 Pain in right foot (principal)

== ENCOUNTER 2018-01-10 12:31 | Inpatient (IN) | payer MEDICARE ==
[~2018-01-10] VITALS: Ht 182.9 cm; Wt 99.8 kg
[2018-01-10] MEDS ORDERED: GLUCOTROL 5 MG T5 MG PO (12:54)
[2018-01-10 16:17] LABS: BASOPHILS 0.1 % (0-2); EOSINOPHILS 0.2 % (0-7); HEMATOCRIT 41.7 % (42.0-54.0); HEMOGLOBIN 13.8 g/dL (13.5-17.5); IMMATURE GRANULOCYTES 0.7 % (0-5); MCH 28.8 pg (26.0-34.0); MCHC 33.1 g/dL (31.0-37.0); MCV 87.1 fL (80.0-100.0); MEAN PLATELET VOLUME 9.7 fL (7.4-10.4); MONOCYTES 7.3 % (2-11); NEUTROPHILS 84.7 % (40-80); RBC 4.79 10x6/uL (4.20-6.10); RDW 15.4 % (11.5-14.5); WBC 12.6 10x3/uL (4.8-10.8)
[2018-01-10 16:43] LABS: ALBUMIN 2.9 g/dL (3.4-5.0); ANION GAP 16.9 mmol/L (8-16); BILIRUBIN - TOTAL 0.41 mg/dL (0.2-1.3); CALCIUM 8.2 mg/dL (8.5-10.1); CARBON DIOXIDE 21.2 mmol/L (21.0-32.0); CREATININE - SERUM 1.1 mg/dL (0.6-1.3); POTASSIUM - SERUM 4.1 mmol/L (3.5-5.1); PROTEIN - SERUM 6.8 g/dL (6.4-8.2)
[2018-01-10 17:10] LABS: PLATELET COUNT 147 10x3/uL (130-400)
[2018-01-11] VITALS (7 sets, daily range): BP systolic 115–126; BP diastolic 62–81; Ht 182.9 cm; Wt 99.8 kg
[2018-01-11 10:38] LABS: BASOPHILS 0.1 % (0-2); EOSINOPHILS 2.1 % (0-7); HEMATOCRIT 40.1 % (42.0-54.0); HEMOGLOBIN 13.2 g/dL (13.5-17.5); IMMATURE GRANULOCYTES 0.9 % (0-5); LYMPHOCYTES 16.7 % (15-50); MCHC 32.9 g/dL (31.0-37.0); MEAN PLATELET VOLUME 9.6 fL (7.4-10.4); MONOCYTES 8.6 % (2-11); NEUTROPHILS 71.6 % (40-80); PLATELET COUNT 189 10x3/uL (130-400); RBC 4.72 10x6/uL (4.20-6.10); RDW 15.2 % (11.5-14.5); WBC 9.4 10x3/uL (4.8-10.8)
[2018-01-11 10:51] LABS: ALBUMIN 2.6 g/dL (3.4-5.0); ALKALINE PHOSPHATASE 69 U/L (46-116); ALT (SGPT) 14 U/L (10-68); BILIRUBIN - TOTAL 0.46 mg/dL (0.2-1.3); CALCIUM 8.2 mg/dL (8.5-10.1); CARBON DIOXIDE 24.6 mmol/L (21.0-32.0); CHLORIDE - SERUM 109 mmol/L (98-107); CREATININE - SERUM 0.9 mg/dL (0.6-1.3); PROTEIN - SERUM 6.9 g/dL (6.4-8.2); SODIUM 144 mmol/L (136-145); UREA NITROGEN 7 mg/dL (7-18); eGFR NON AFRICAN AMERICAN > 90 mL/min (90-120)
[2018-01-11 10:52] LABS: CALC OSMOLALITY 283 mosm/kg (275-300); GLUCOSE 89 mg/dL (74-106); POTASSIUM - SERUM 3.2 mmol/L (3.5-5.1)
[2018-01-12 04:23] VITALS: BP 138/68
[2018-01-12 05:25] LABS: BASOPHILS 0.2 % (0-2); HEMATOCRIT 40.8 % (42.0-54.0); HEMOGLOBIN 13.3 g/dL (13.5-17.5); IMMATURE GRANULOCYTES 0.5 % (0-5); LYMPHOCYTES 8.6 % (15-50); MCHC 32.6 g/dL (31.0-37.0); MCV 85.9 fL (80.0-100.0); MEAN PLATELET VOLUME 9.9 fL (7.4-10.4); MONOCYTES 9.6 % (2-11); NEUTROPHILS 80.1 % (40-80); PLATELET COUNT 195 10x3/uL (130-400); RBC 4.75 10x6/uL (4.20-6.10); RDW 15.4 % (11.5-14.5)
[2018-01-12 05:27] LABS: WBC 12.6 10x3/uL (4.8-10.8)
[2018-01-12 05:54] LABS: ALBUMIN 2.5 g/dL (3.4-5.0); ANION GAP 14.7 mmol/L (8-16); BILIRUBIN - TOTAL 0.42 mg/dL (0.2-1.3); CARBON DIOXIDE 24.6 mmol/L (21.0-32.0); POTASSIUM - SERUM 3.3 mmol/L (3.5-5.1); PROTEIN - SERUM 6.7 g/dL (6.4-8.2)
[2018-01-12 05:57] LABS: CREATININE - SERUM 1.2 mg/dL (0.6-1.3)
[2018-01-12 08:45] VITALS: BP 97/63
[2018-01-12 09:59] VITALS: BP 107/74
[2018-01-12 12:50] VITALS: BP 112/65
[2018-01-12 16:25] VITALS: BP 145/56
[2018-01-12 20:00] VITALS: BP 136/74
[2018-01-13] VITALS: BP 125/72
[2018-01-13 04:52] VITALS: BP 119/74
[2018-01-13 06:36] LABS: BASOPHILS 0.1 % (0-2); EOSINOPHILS 1.8 % (0-7); HEMATOCRIT 40.6 % (42.0-54.0); HEMOGLOBIN 13.2 g/dL (13.5-17.5); IMMATURE GRANULOCYTES 0.7 % (0-5); MCH 28.2 pg (26.0-34.0); MCHC 32.5 g/dL (31.0-37.0); MCV 86.8 fL (80.0-100.0); MEAN PLATELET VOLUME 9.7 fL (7.4-10.4); MONOCYTES 6.7 % (2-11); NEUTROPHILS 83.7 % (40-80); PLATELET COUNT 182 10x3/uL (130-400); RBC 4.68 10x6/uL (4.20-6.10); RDW 15.6 % (11.5-14.5)
[2018-01-13 07:22] LABS: ALBUMIN 2.4 g/dL (3.4-5.0); ANION GAP 17.1 mmol/L (8-16); BILIRUBIN - TOTAL 0.68 mg/dL (0.2-1.3); CALCIUM 8.8 mg/dL (8.5-10.1); CARBON DIOXIDE 26.7 mmol/L (21.0-32.0); CREATININE - SERUM 1.1 mg/dL (0.6-1.3)
[2018-01-13 07:23] LABS: POTASSIUM - SERUM 3.8 mmol/L (3.5-5.1)
[2018-01-13 08:49] VITALS: BP 122/73
[2018-01-13 14:08] VITALS: BP 120/71
[2018-01-13 16:56] VITALS: BP 128/72
[2018-01-13 20:00] VITALS: BP 121/71
[2018-01-14] VITALS (7 sets, daily range): BP systolic 99–133; BP diastolic 61–86
[2018-01-14 05:59] LABS: BASOPHILS 0.1 % (0-2); EOSINOPHILS 1.7 % (0-7); IMMATURE GRANULOCYTES 0.7 % (0-5); MCH 28.1 pg (26.0-34.0); MCHC 33.3 g/dL (31.0-37.0); MEAN PLATELET VOLUME 9.6 fL (7.4-10.4); MONOCYTES 7.1 % (2-11); NEUTROPHILS 81.4 % (40-80); PLATELET COUNT 200 10x3/uL (130-400); RBC 4.63 10x6/uL (4.20-6.10); RDW 15.1 % (11.5-14.5); WBC 10.1 10x3/uL (4.8-10.8)
[2018-01-14 06:00] LABS: MCV 84.2 fL (80.0-100.0)
[2018-01-14 06:21] LABS: ALBUMIN 2.3 g/dL (3.4-5.0); ALKALINE PHOSPHATASE 78 U/L (46-116); CALCIUM 8.8 mg/dL (8.5-10.1); CARBON DIOXIDE 24.3 mmol/L (21.0-32.0); CHLORIDE - SERUM 102 mmol/L (98-107); CREATININE - SERUM 0.9 mg/dL (0.6-1.3); POTASSIUM - SERUM 3.3 mmol/L (3.5-5.1); PROTEIN - SERUM 6.9 g/dL (6.4-8.2); SODIUM 137 mmol/L (136-145); eGFR NON AFRICAN AMERICAN > 90 mL/min (90-120)
[2018-01-14 06:24] LABS: ALT (SGPT) 11 U/L (10-68); CALC OSMOLALITY 276 mosm/kg (275-300); GLUCOSE 176 mg/dL (74-106); UREA NITROGEN 9 mg/dL (7-18)
[2018-01-15] VITALS (9 sets, daily range): BP systolic 109–132; BP diastolic 65–85
[2018-01-15 05:31] LABS: BASOPHILS 0.1 % (0-2); EOSINOPHILS 2.8 % (0-7); HEMATOCRIT 37.9 % (42.0-54.0); HEMOGLOBIN 12.4 g/dL (13.5-17.5); IMMATURE GRANULOCYTES 0.9 % (0-5); LYMPHOCYTES 9.2 % (15-50); MCH 27.7 pg (26.0-34.0); MCHC 32.7 g/dL (31.0-37.0); MCV 84.6 fL (80.0-100.0); MEAN PLATELET VOLUME 9.8 fL (7.4-10.4); MONOCYTES 9.9 % (2-11); NEUTROPHILS 77.1 % (40-80); PLATELET COUNT 221 10x3/uL (130-400); RBC 4.48 10x6/uL (4.20-6.10); RDW 15.1 % (11.5-14.5); WBC 8.6 10x3/uL (4.8-10.8)
[2018-01-15 05:54] LABS: ALBUMIN 2.3 g/dL (3.4-5.0); ALKALINE PHOSPHATASE 71 U/L (46-116); ALT (SGPT) 12 U/L (10-68); BILIRUBIN - TOTAL 0.23 mg/dL (0.2-1.3); CALC OSMOLALITY 282 mosm/kg (275-300); CALCIUM 8.5 mg/dL (8.5-10.1); CARBON DIOXIDE 23.6 mmol/L (21.0-32.0); CHLORIDE - SERUM 105 mmol/L (98-107); GLUCOSE 172 mg/dL (74-106); POTASSIUM - SERUM 3.3 mmol/L (3.5-5.1); PROTEIN - SERUM 6.8 g/dL (6.4-8.2); SODIUM 140 mmol/L (136-145); eGFR NON AFRICAN AMERICAN 81 mL/min (90-120)
[2018-01-15 05:56] LABS: UREA NITROGEN 12 mg/dL (7-18)
[2018-01-15] MEDS ORDERED: DOXYCYCLINE HY100 M2 PO (09:11)
== END 2018-01-15 15:58 | disposition home or self-care (01) | DRG 629 ==
LOC: D.ER 12:31 → D.MS 16:22 → D.SDCHOLD 16:22 → D.MS 19:42
PROVIDERS: Family Medicine; Podiatrist Foot & Ankle Surgery
PROC: 0JQR0ZZ Repair Left Foot Subcutaneous Tissue and Fascia, Open Approach (ICD-10-PCS; 2018-01-11)
PROC: 0HBNXZZ Excision of Left Foot Skin, External Approach (ICD-10-PCS; 2018-01-11)
PROC: 0J9R0ZZ Drainage of Left Foot Subcutaneous Tissue and Fascia, Open Approach (ICD-10-PCS; principal; 2018-01-11 11:00)
PROC: 0J9R0ZZ Drainage of Left Foot Subcutaneous Tissue and Fascia, Open Approach (ICD-10-PCS; 2018-01-15)
PROC: 0HBNXZZ Excision of Left Foot Skin, External Approach (ICD-10-PCS; 2018-01-15)
DX: E11.628 Type 2 diabetes mellitus with other skin complications (principal); L02.612 Cutaneous abscess of left foot; L97.428 Non-pressure chronic ulcer of left heel and midfoot with other specified severity; L03.116 Cellulitis of left lower limb; K50.90 Crohn's disease, unspecified, without complications; E11.621 Type 2 diabetes mellitus with foot ulcer; E11.40 Type 2 diabetes mellitus with diabetic neuropathy, unspecified; K21.9 Gastro-esophageal reflux disease without esophagitis; J44.9 Chronic obstructive pulmonary disease, unspecified

== ENCOUNTER → 2018-02-19 20:55 | Outpatient (CLI) | payer MEDICARE ==
[2018-01-11 10:18] VITALS: BMI 29.8
[~2018-02-19 20:55] MED LIST changes: +CIPRO500 MG PO; +DOXYCYCLINE HY100 M2 PO; +GABAPENTIN100 MG PO; +GLUCOTROL 5 MG T5 MG PO; +LINEZOLID600 MG PO; +MERREM 1 GM/NS 11 G1 IV
== END | disposition home or self-care (01) ==
LOC: D.LABREF 20:55
DX: L03.116 Cellulitis of left lower limb (principal)

== ENCOUNTER 2018-03-08 07:20 | Inpatient (IN) | payer MEDICARE ==
[2018-03-07 15:21] LABS: BASOPHILS 0.1 % (0-2); EOSINOPHILS 0 % (0-7); HEMOGLOBIN 13.1 g/dL (13.5-17.5); IMMATURE GRANULOCYTES 0.9 % (0-5); LYMPHOCYTES 6.7 % (15-50); MCHC 32.8 g/dL (31.0-37.0); MCV 85.5 fL (80.0-100.0); MEAN PLATELET VOLUME 9.7 fL (7.4-10.4); NEUTROPHILS 87.3 % (40-80); RBC 4.68 10x6/uL (4.20-6.10); RDW 15.6 % (11.5-14.5); WBC 11.1 10x3/uL (4.8-10.8)
[2018-03-07 15:22] LABS: PLATELET COUNT 159 10x3/uL (130-400)
[2018-03-07 15:28] LABS: ANION GAP 16.2 mmol/L (8-16); CALCIUM 7.6 mg/dL (8.5-10.1); CARBON DIOXIDE 21.7 mmol/L (21.0-32.0); CREATININE - SERUM 1.6 mg/dL (0.6-1.3); POTASSIUM - SERUM 3.9 mmol/L (3.5-5.1)
[2018-03-07 15:29] LABS: APTT 24.4 SECONDS (22.8-39.4); INR 1.03 (0.85-1.17); PROTIME 13.1 SECONDS (11.6-15.0)
[2018-03-08] VITALS (9 sets, daily range): BP systolic 110–132; BP diastolic 64–82; BMI 29.6
[~2018-03-08] VITALS: Ht 182.9 cm; Wt 98.9 kg
[~2018-03-08 07:20] MED LIST changes: -CIPRO500 MG PO; -GABAPENTIN100 MG PO; -LINEZOLID600 MG PO; -MERREM 1 GM/NS 11 G1 IV
[2018-03-08] MEDS ORDERED: CIPRO500 MG PO (07:42)
[2018-03-08] MEDS ORDERED: LINEZOLID600 MG PO (07:42)
[2018-03-08] MEDS ORDERED: GABAPENTIN100 MG PO (07:43)
[2018-03-09] VITALS (8 sets, daily range): BP systolic 116–132; BP diastolic 66–87; Ht 182.9 cm; Wt 98.9 kg
[2018-03-09 10:34] LABS: BASOPHILS 0.1 % (0-2); EOSINOPHILS 0 % (0-7); HEMATOCRIT 39.3 % (42.0-54.0); IMMATURE GRANULOCYTES 0.7 % (0-5); LYMPHOCYTES 4.8 % (15-50); MCH 27.8 pg (26.0-34.0); MCHC 33.1 g/dL (31.0-37.0); MCV 84.2 fL (80.0-100.0); MEAN PLATELET VOLUME 9.9 fL (7.4-10.4); MONOCYTES 4.4 % (2-11); PLATELET COUNT 141 10x3/uL (130-400); RBC 4.67 10x6/uL (4.20-6.10); RDW 15.4 % (11.5-14.5); WBC 13.4 10x3/uL (4.8-10.8)
[2018-03-09 10:41] LABS: ALBUMIN 2.8 g/dL (3.4-5.0); ANION GAP 12.4 mmol/L (8-16); BILIRUBIN - TOTAL 0.48 mg/dL (0.2-1.3); CALCIUM 7.6 mg/dL (8.5-10.1); CARBON DIOXIDE 25.1 mmol/L (21.0-32.0); POTASSIUM - SERUM 3.5 mmol/L (3.5-5.1); PROTEIN - SERUM 6.4 g/dL (6.4-8.2)
[2018-03-09 10:49] LABS: CREATININE - SERUM 1.1 mg/dL (0.6-1.3)
[2018-03-10 04:00] VITALS: BP 123/65
[2018-03-10 07:06] LABS: BASOPHILS 0 % (0-2); EOSINOPHILS 0.8 % (0-7); HEMATOCRIT 36.3 % (42.0-54.0); HEMOGLOBIN 11.6 g/dL (13.5-17.5); IMMATURE GRANULOCYTES 1.3 % (0-5); LYMPHOCYTES 17.2 % (15-50); MCH 27.2 pg (26.0-34.0); MEAN PLATELET VOLUME 10.1 fL (7.4-10.4); MONOCYTES 8.7 % (2-11); PLATELET COUNT 116 10x3/uL (130-400); RBC 4.27 10x6/uL (4.20-6.10); RDW 15.8 % (11.5-14.5)
[2018-03-10 07:23] LABS: WBC 9.2 10x3/uL (4.8-10.8)
[2018-03-10 07:24] LABS: ALBUMIN 2.4 g/dL (3.4-5.0); ALKALINE PHOSPHATASE 59 U/L (46-116); BILIRUBIN - TOTAL 0.23 mg/dL (0.2-1.3); CALCIUM 7.4 mg/dL (8.5-10.1); CARBON DIOXIDE 24.5 mmol/L (21.0-32.0); CHLORIDE - SERUM 109 mmol/L (98-107); POTASSIUM - SERUM 3.1 mmol/L (3.5-5.1); PROTEIN - SERUM 5.7 g/dL (6.4-8.2); SODIUM 142 mmol/L (136-145); UREA NITROGEN 4 mg/dL (7-18); eGFR NON AFRICAN AMERICAN 81 mL/min (90-120)
[2018-03-10 07:31] LABS: ALT (SGPT) 18 U/L (10-68); CALC OSMOLALITY 285 mosm/kg (275-300); GLUCOSE 202 mg/dL (74-106)
[2018-03-10 07:59] VITALS: BP 131/70
[2018-03-10 16:05] VITALS: BP 108/65
[2018-03-10 20:56] VITALS: BP 119/69
[2018-03-11 00:46] VITALS: BP 120/51
[2018-03-11 04:55] VITALS: BP 134/74
[2018-03-11 05:02] LABS: BASOPHILS 0.2 % (0-2); EOSINOPHILS 0.9 % (0-7); HEMATOCRIT 34.3 % (42.0-54.0); HEMOGLOBIN 11.3 g/dL (13.5-17.5); MCH 27.6 pg (26.0-34.0); MCHC 32.9 g/dL (31.0-37.0); MCV 83.9 fL (80.0-100.0); MEAN PLATELET VOLUME 9.4 fL (7.4-10.4); MONOCYTES 9.1 % (2-11); NEUTROPHILS 72.8 % (40-80); PLATELET COUNT 118 10x3/uL (130-400); RBC 4.09 10x6/uL (4.20-6.10); RDW 15.7 % (11.5-14.5)
[2018-03-11 05:40] LABS: ALBUMIN 2.4 g/dL (3.4-5.0); ALKALINE PHOSPHATASE 61 U/L (46-116); CALC OSMOLALITY 283 mosm/kg (275-300); CALCIUM 7.5 mg/dL (8.5-10.1); CARBON DIOXIDE 24.2 mmol/L (21.0-32.0); CHLORIDE - SERUM 109 mmol/L (98-107); CREATININE - SERUM 0.9 mg/dL (0.6-1.3); GLUCOSE 169 mg/dL (74-106); POTASSIUM - SERUM 3.1 mmol/L (3.5-5.1); PROTEIN - SERUM 5.5 g/dL (6.4-8.2); SODIUM 142 mmol/L (136-145); UREA NITROGEN 4 mg/dL (7-18); eGFR NON AFRICAN AMERICAN > 90 mL/min (90-120)
[2018-03-11 05:43] LABS: ALT (SGPT) 23 U/L (10-68)
[2018-03-11 08:49] VITALS: BP 154/82
[2018-03-11 15:56] VITALS: BP 151/76
[2018-03-11 20:26] VITALS: BP 137/75
[2018-03-12 04:49] VITALS: BP 148/74
[2018-03-12 05:01] LABS: BASOPHILS 0.3 % (0-2); EOSINOPHILS 0.5 % (0-7); HEMATOCRIT 35.1 % (42.0-54.0); HEMOGLOBIN 11.5 g/dL (13.5-17.5); IMMATURE GRANULOCYTES 2.7 % (0-5); MCH 27.5 pg (26.0-34.0); MCHC 32.8 g/dL (31.0-37.0); MEAN PLATELET VOLUME 10.3 fL (7.4-10.4); MONOCYTES 8.9 % (2-11); NEUTROPHILS 76.6 % (40-80); PLATELET COUNT 129 10x3/uL (130-400); RBC 4.18 10x6/uL (4.20-6.10); RDW 15.7 % (11.5-14.5); WBC 11.3 10x3/uL (4.8-10.8)
[2018-03-12 05:11] LABS: ALBUMIN 2.4 g/dL (3.4-5.0); BILIRUBIN - TOTAL 0.27 mg/dL (0.2-1.3); CALCIUM 7.3 mg/dL (8.5-10.1); CARBON DIOXIDE 24.1 mmol/L (21.0-32.0); CREATININE - SERUM 1.1 mg/dL (0.6-1.3); PROTEIN - SERUM 5.7 g/dL (6.4-8.2)
[2018-03-12 05:12] LABS: ANION GAP 13.6 mmol/L (8-16); POTASSIUM - SERUM 3.7 mmol/L (3.5-5.1)
[2018-03-12 09:11] VITALS: BP 132/78
[2018-03-12 12:18] VITALS: BP 128/76
[2018-03-12 18:53] VITALS: BP 130/72
[2018-03-12 23:44] VITALS: BP 154/64
[2018-03-13 02:57] VITALS: BP 121/66
[2018-03-13 06:26] LABS: BASOPHILS 0.2 % (0-2); EOSINOPHILS 1.2 % (0-7); HEMATOCRIT 35.4 % (42.0-54.0); HEMOGLOBIN 11.6 g/dL (13.5-17.5); LYMPHOCYTES 17.4 % (15-50); MCH 27.5 pg (26.0-34.0); MCHC 32.8 g/dL (31.0-37.0); MCV 83.9 fL (80.0-100.0); MEAN PLATELET VOLUME 10.1 fL (7.4-10.4); MONOCYTES 8.5 % (2-11); NEUTROPHILS 67.7 % (40-80); PLATELET COUNT 119 10x3/uL (130-400); RBC 4.22 10x6/uL (4.20-6.10); RDW 15.9 % (11.5-14.5); WBC 10.3 10x3/uL (4.8-10.8)
[2018-03-13 06:51] LABS: ALBUMIN 2.4 g/dL (3.4-5.0); ALKALINE PHOSPHATASE 65 U/L (46-116); CALCIUM 7.5 mg/dL (8.5-10.1); CHLORIDE - SERUM 107 mmol/L (98-107); CREATININE - SERUM 0.9 mg/dL (0.6-1.3); GLUCOSE 202 mg/dL (74-106); PROTEIN - SERUM 5.6 g/dL (6.4-8.2); SODIUM 140 mmol/L (136-145); eGFR NON AFRICAN AMERICAN > 90 mL/min (90-120)
[2018-03-13 06:57] LABS: ALT (SGPT) 33 U/L (10-68); CALC OSMOLALITY 281 mosm/kg (275-300); UREA NITROGEN 4 mg/dL (7-18)
[2018-03-13 08:32] VITALS: BP 138/83
[2018-03-13 11:54] VITALS: BP 114/69
[2018-03-13] MEDS ORDERED: MERREM 1 GM/NS 11 G1 IV (15:51)
== END 2018-03-13 17:15 | disposition home health service (06) | DRG 617 ==
LOC: D.OPS 07:20 → D.MS 07:20 → D.PAN 08:30 → D.OPS 08:30 → D.MS 19:16 → D.OPS 19:17 → D.MS 19:17
PROVIDERS: Anesthesiology; Family Medicine; Podiatrist Foot & Ankle Surgery
PROC: 0Y6N0ZC Detachment at Left Foot, Partial 3rd Ray, Open Approach (ICD-10-PCS; 2018-03-08)
PROC: 0Y6N0ZD Detachment at Left Foot, Partial 4th Ray, Open Approach (ICD-10-PCS; 2018-03-08)
PROC: 0Y6N0ZF Detachment at Left Foot, Partial 5th Ray, Open Approach (ICD-10-PCS; 2018-03-08)
PROC: 0QBP0ZX Excision of Left Metatarsal, Open Approach, Diagnostic (ICD-10-PCS; 2018-03-08)
PROC: 0HBNXZZ Excision of Left Foot Skin, External Approach (ICD-10-PCS; 2018-03-08)
PROC: 0Y6N0Z9 Detachment at Left Foot, Partial 1st Ray, Open Approach (ICD-10-PCS; principal; 2018-03-08 09:00)
PROC: 0Y6N0ZB Detachment at Left Foot, Partial 2nd Ray, Open Approach (ICD-10-PCS; 2018-03-08 09:00)
DX: E11.69 Type 2 diabetes mellitus with other specified complication (principal); M86.9 Osteomyelitis, unspecified; K50.90 Crohn's disease, unspecified, without complications; T81.30XA Disruption of wound, unspecified, initial encounter; E11.40 Type 2 diabetes mellitus with diabetic neuropathy, unspecified; E11.621 Type 2 diabetes mellitus with foot ulcer; L97.522 Non-pressure chronic ulcer of other part of left foot with fat layer exposed; L97.529 Non-pressure chronic ulcer of other part of left foot with unspecified severity; K21.9 Gastro-esophageal reflux disease without esophagitis; G47.33 Obstructive sleep apnea (adult) (pediatric); K76.0 Fatty (change of) liver, not elsewhere classified; Z87.891 Personal history of nicotine dependence; D50.9 Iron deficiency anemia, unspecified

== ENCOUNTER → 2018-03-20 14:29 | Outpatient (CLI) | payer MEDICARE ==
[2018-03-09 14:01] VITALS: BMI 29.5
[~2018-03-20 14:29] MED LIST changes: +CIPRO500 MG PO; +GABAPENTIN100 MG PO; +LINEZOLID600 MG PO; +MERREM 1 GM/NS 11 G1 IV
[2018-03-20 14:38] LABS: BASOPHILS 0.1 % (0-2); EOSINOPHILS 0.6 % (0-7); HEMATOCRIT 41.4 % (42.0-54.0); IMMATURE GRANULOCYTES 1.6 % (0-5); LYMPHOCYTES 9.8 % (15-50); MCH 27.5 pg (26.0-34.0); MCHC 31.4 g/dL (31.0-37.0); MCV 87.7 fL (80.0-100.0); MEAN PLATELET VOLUME 11.3 fL (7.4-10.4); MONOCYTES 6.9 % (2-11); RBC 4.72 10x6/uL (4.20-6.10); RDW 16.1 % (11.5-14.5)
[2018-03-20 14:39] LABS: PLATELET COUNT 180 10x3/uL (130-400)
[2018-03-20 17:00] LABS: ERYTHROCYTE SEDIMENTATION RATE 1 mm/hr (0-20)
== END | disposition home or self-care (01) ==
LOC: D.LABREF 14:29
PROVIDERS: Student in an Organized Health Care Education/Training Program
DX: E11.9 Type 2 diabetes mellitus without complications (principal); C4A.9 Merkel cell carcinoma, unspecified; M86.9 Osteomyelitis, unspecified; B95.1 Streptococcus, group B, as the cause of diseases classified elsewhere

== ENCOUNTER → 2018-03-28 13:07 | Outpatient (CLI) | payer MEDICARE ==
[2018-03-09 14:01] VITALS: BMI 29.5
[2018-03-28 13:44] LABS: BASOPHILS 0.1 % (0-2); EOSINOPHILS 1.2 % (0-7); HEMATOCRIT 39.2 % (42.0-54.0); HEMOGLOBIN 12.6 g/dL (13.5-17.5); IMMATURE GRANULOCYTES 1.3 % (0-5); MCH 27.6 pg (26.0-34.0); MCHC 32.1 g/dL (31.0-37.0); MCV 85.8 fL (80.0-100.0); MEAN PLATELET VOLUME 10.6 fL (7.4-10.4); MONOCYTES 10.4 % (2-11); PLATELET COUNT 157 10x3/uL (130-400); RBC 4.57 10x6/uL (4.20-6.10); RDW 16.1 % (11.5-14.5); WBC 9.3 10x3/uL (4.8-10.8)
[2018-03-28 13:51] LABS: C-REACTIVE PROTEIN < 0.2 mg/dL (0.0-0.9); CREATININE - SERUM 0.9 mg/dL (0.6-1.3); UREA NITROGEN 8 mg/dL (7-18)
[2018-03-28 14:53] LABS: ERYTHROCYTE SEDIMENTATION RATE 5 mm/hr (0-20)
== END | disposition home or self-care (01) ==
LOC: D.LABREF 13:07
PROVIDERS: Student in an Organized Health Care Education/Training Program
DX: M86.8X7 Other osteomyelitis, ankle and foot (principal); C4A.9 Merkel cell carcinoma, unspecified; E11.9 Type 2 diabetes mellitus without complications; K50.90 Crohn's disease, unspecified, without complications

== ENCOUNTER 2018-06-11 12:17 | Inpatient (IN) | payer MEDICARE ==
[~2018-06-11] VITALS: Ht 182.9 cm; Wt 99.8 kg
--- NOTE | ~2018-06-11 | MORECARE ---
CASE MANAGEMENT DISCHARGE SUMMARY PATIENT: THOR JAMES UNIT: [id number] ADM DATE: 06/11/18 AGE: 57 : 58 SEX: M ROOM/BED: D.2204 AUTHOR: VIMAL WOLF PHYSICIAN: REFERRING PHYSICIAN: KAIDEN ORR DPM DATE OF SERVICE: 06/12/18 Discharge Plan Patient Name: THOR JAMES Facility: [facility]:[place] : 1960 Planned Disposition: Home or Self Care Anticipated Discharge Date: Discharge Date: Expected LOS: Initial Reviewer: [email or web address] Initial Review Date: 06/11/2018 Generated: 06/12/18 3:49 pm Patient Name: THOR JAMES Page [phone] at 1449 All edits/amendments must be made on the electronic document DICTATION DATE: 06/12/18 144 HIMS CLERK: JERMAINE 06/12/18 1449 RPT#: [id number] DC DATE: STATUS: ADM IN [facility] [address] [place] [address] END OF REPORT
--- NOTE | ~2018-06-11 | MORECARE ---
CASE MANAGEMENT DISCHARGE SUMMARY PATIENT: THOR JAMES UNIT: [id number] ADM DATE: 06/11/18 AGE: 57 : 58 SEX: M ROOM/BED: D.2204 AUTHOR: LUCIANO,DOC PHYSICIAN: REFERRING PHYSICIAN: KAIDEN ORR DPM DATE OF SERVICE: 06/12/18 Discharge Plan Patient Name: THOR JAMES Facility: [facility]:[place] : 1960 Planned Disposition: Home or Self Care Anticipated Discharge Date: Discharge Date: Expected LOS: Initial Reviewer: [email or web address] Initial Review Date: 06/11/2018 Generated: 06/12/18 4:00 pm Comments DCP- Discharge Planning Updated by [email or web address]: Ayla Rajan on 06/12/18 1:[address] Patient Name: THOR JAMES Admission Status: Elective Accout number: [id number] Admission Date: 06-11-2018 : 1960 Admission Diagnosis: Attending: KAIDEN ORR Current LOS: 1 Anticipated DC Date: Planned Disposition: Home or Self Care Primary Insurance: [employer] CHOICE PPO MCR [facility] Discharge Planning Comments: CM met with patient to assess discharge planning needs. Patient stated that he lives independently with his at home and plans to return there at DC. Patient's is Ava from inpatient rehab. He has a cane, rolling walker and cpap machine at home. He is not current with home health at this time, but stated to talk to his if he needs it at discharge. CM will continue to follow and assist with DC planning. Boiler Welder: Ayla Rajan DCPIA - Discharge Planning Initial Assessment Updated by [email or web address]: Ayla Rajan on 06/12/18 2:50 pm * Is the patient Alert and Oriented? Yes * How many steps to enter\exit or inside your home? * PCP TEJEDA * Pharmacy [facility] * Preadmission Environment Home with Family * ADLs Independent * Equipment Cane CPAP Rolling Walker * List name and contact numbers for known caregivers / representatives who currently or will assist patient after discharge: AVA () [phone] * Verbal permission to speak to the caregivers and representatives has been obtained from the patient. Yes * Community resources currently utilized None * Additional services required to return to the preadmission environment? No * Can the patient safely return to the preadmission environment? Yes * Has this patient been hospitalized within the prior 30 days at any hospital? No Last DP export: 06/12/18 1:49 Patient Name: THOR JAMES Page [id number] at 1500 All edits/amendments must be made on the electronic document DICTATION DATE: 06/12/18 [address] DELIVERY DRIVER: JERMAINE 06/12/181499 RPT#: [id number] DC DATE: STATUS: ADM IN [facility] [address] [place] [address] END OF REPORT
--- NOTE | ~2018-06-11 | MORECARE ---
CASE MANAGEMENT DISCHARGE SUMMARY PATIENT: THOR JAMES UNIT: [id number] ADM DATE: 06/11/18 AGE: 57 : 58 SEX: M ROOM/BED: D.2204 AUTHOR: LUCIANO,DOC PHYSICIAN: REFERRING PHYSICIAN: KAIDEN ORR DPM DATE OF SERVICE: 06/15/18 Discharge Plan Patient Name: THOR JAMES Facility: [facility]:[place] : 1960 Planned Disposition: Home or Self Care Anticipated Discharge Date: Discharge Date: 06/15/2018 Expected LOS: 0 Initial Reviewer: [email or web address] Initial Review Date: 06/11/2018 Generated: 06/15/18 1:31 pm Comments DCP- Discharge Planning Updated by [email or web address]: Ayla Rajan on 06/15/18 8:[address] PATIENT WILL BE DISCHARING HOME WILL NOT NEED HOME HEALTH OR IV ABX. IMM SERVED AND EXPLAINED. CM WILL CONTINUE TO ASSIST WITH DC PLANNING NEEDED DCP- Discharge Planning Updated by [email or web address]: Ayla Rajan on 06/12/18 1:[address] Patient Name: THOR JAMES Admission Status: Elective Accout number: [id number] Admission Date: 06-11-2018 : 1960 Admission Diagnosis: Attending: KAIDEN ORR Current LOS: 1 Anticipated DC Date: Planned Disposition: Home or Self Care Primary Insurance: HU[employer]NA CHOICE PPO MCR [employer] Discharge Planning Comments: CM met with patient to assess discharge planning needs. Patient stated that he lives independently with his at home and plans to return there at DC. Patient's is Ava from inpatient rehab. He has a cane, rolling walker and cpap machine at home. He is not current with home health at this time, but stated to talk to his if he needs it at discharge. CM will continue to follow and assist with DC planning. Turner Splitter Machine Operator: Ayla Rajan DCPIA - Discharge Planning Initial Assessment Updated by [email or web address]: Ayla Rajan on 06/12/18 2:50 pm * Is the patient Alert and Oriented? Yes * How many steps to enter\exit or inside your home? * PCP TEJEDA * Pharmacy [facility] * Preadmission Environment Home with Family * ADLs Independent * Equipment Cane CPAP Rolling Walker * List name and contact numbers for known caregivers / representatives who currently or will assist patient after discharge: AVA () [phone] * Verbal permission to speak to the caregivers and representatives has been obtained from the patient. Yes * Community resources currently utilized None * Additional services required to return to the preadmission environment? No * Can the patient safely return to the preadmission environment? Yes * Has this patient been hospitalized within the prior 30 days at any hospital? No Coverage Notice Reviewer: [email or web address] Cornell Rajan Notice Issued Date-Time: 06/15/2018 9:40 Notice Type: IM Discharge Notice Notice Delivered To: Patient Relationship to Patient: Defense Analyst Name: Delivery Method: HAND - Hand Delivered Kayla Days: Prior Verbal Notification: Recipient Understood Notice: Yes Recipient Signature: Yes Med Rec Note Co-signed by Attending: Coverage Notice Comment: Last DP export: 06/15/18 8:53 Patient Name: THOR JAMES Page [phone] at 1231 All edits/amendments must be made on the electronic document DICTATION DATE: 06/15/18 1230 TICKET PRINTER: JERMAINE 06/15/18 1230 RPT#: [id number] DC DATE:06/15/18 STATUS: DIS IN [facility] [address] [place] [address] END OF REPORT
--- NOTE | ~2018-06-11 | MORECARE ---
CASE MANAGEMENT DISCHARGE SUMMARY PATIENT: THOR JAMES UNIT: [id number] ADM DATE: 06/11/18 AGE: 57 : 58 SEX: M ROOM/BED: D.2204 AUTHOR: LUCIANO,DOC PHYSICIAN: REFERRING PHYSICIAN: KAIDEN ORR DPM DATE OF SERVICE: 06/15/18 Discharge Plan Patient Name: THOR JAMES Facility: [facility]:[place] : 1960 Planned Disposition: Home or Self Care Anticipated Discharge Date: Discharge Date: Expected LOS: Initial Reviewer: [email or web address] Initial Review Date: 06/11/2018 Generated: 06/15/18 10:52 am Comments DCP- Discharge Planning Updated by [email or web address]: Ayla Rajan on 06/15/18 8:[address] PATIENT WILL BE DISCHARING HOME WILL NOT NEED HOME HEALTH OR IV ABX. IMM SERVED AND EXPLAINED. CM WILL CONTINUE TO ASSIST WITH DC PLANNING NEEDED DCP- Discharge Planning Updated by [email or web address]: Ayla Rajan on 06/12/18 1:[address] Patient Name: THOR JAMES Admission Status: Elective Accout number: [id number] Admission Date: 06-11-2018 : 1960 Admission Diagnosis: Attending: KAIDEN ORR Current LOS: 1 Anticipated DC Date: Planned Disposition: Home or Self Care Primary Insurance: HU[employer]NA CHOICE PPO MCR [employer] Discharge Planning Comments: CM met with patient to assess discharge planning needs. Patient stated that he lives independently with his at home and plans to return there at DC. Patient's is Ava from inpatient rehab. He has a cane, rolling walker and cpap machine at home. He is not current with home health at this time, but stated to talk to his if he needs it at discharge. CM will continue to follow and assist with DC planning. Partnership Manager: Ayla Rajan DCPIA - Discharge Planning Initial Assessment Updated by [email or web address]: Ayla Rajan on 06/12/18 2:50 pm * Is the patient Alert and Oriented? Yes * How many steps to enter\exit or inside your home? * PCP TEJEDA * Pharmacy [facility] * Preadmission Environment Home with Family * ADLs Independent * Equipment Cane CPAP Rolling Walker * List name and contact numbers for known caregivers / representatives who currently or will assist patient after discharge: AVA () [phone] * Verbal permission to speak to the caregivers and representatives has been obtained from the patient. Yes * Community resources currently utilized None * Additional services required to return to the preadmission environment? No * Can the patient safely return to the preadmission environment? Yes * Has this patient been hospitalized within the prior 30 days at any hospital? No Coverage Notice Reviewer: [id number] Cornell Rajan Notice Issued Date-Time: 06/15/2018 9:40 Notice Type: IM Discharge Notice Notice Delivered To: Patient Relationship to Patient: Vacation Planner Name: Delivery Method: HAND - Hand Delivered Kayla Days: Prior Verbal Notification: Recipient Understood Notice: Yes Recipient Signature: Yes Med Rec Note Co-signed by Attending: Coverage Notice Comment: Last DP export: 06/12/18 2:00 Patient Name: THOR JAMES Page [id number] at 0953 All edits/amendments must be made on the electronic document DICTATION DATE: 06/15/18951 PROCESS LEAD: JERMAINE 06/15/18951 RPT#: [id number] DC DATE: STATUS: ADM IN [facility] [address] [place] [address] END OF REPORT
[2018-06-11 18:10] VITALS: BMI 29.9
[2018-06-11 21:21] VITALS: BP 104/53
[2018-06-12 00:35] VITALS: BP 107/63
[2018-06-12 05:48] LABS: BASOPHILS 0.1 % (0-2); EOSINOPHILS 1.2 % (0-7); HEMATOCRIT 35.6 % (42.0-54.0); HEMOGLOBIN 11.7 g/dL (13.5-17.5); MCH 28.2 pg (26.0-34.0); MCHC 32.9 g/dL (31.0-37.0); MCV 85.8 fL (80.0-100.0); MEAN PLATELET VOLUME 10.2 fL (7.4-10.4); MONOCYTES 7.6 % (2-11); NEUTROPHILS 71.1 % (40-80); RBC 4.15 10x6/uL (4.20-6.10); WBC 8.9 10x3/uL (4.8-10.8)
[2018-06-12 06:06] LABS: PLATELET COUNT 244 10x3/uL (130-400)
[2018-06-12 06:33] LABS: ALBUMIN 2.3 g/dL (3.4-5.0); ALKALINE PHOSPHATASE 65 U/L (46-116); ALT (SGPT) 12 U/L (10-68); BILIRUBIN - TOTAL 0.39 mg/dL (0.2-1.3); CALC OSMOLALITY 284 mosm/kg (275-300); CALCIUM 8.5 mg/dL (8.5-10.1); CARBON DIOXIDE 25.4 mmol/L (21.0-32.0); CHLORIDE - SERUM 104 mmol/L (98-107); GLUCOSE 216 mg/dL (74-106); POTASSIUM - SERUM 3.2 mmol/L (3.5-5.1); PROTEIN - SERUM 6.4 g/dL (6.4-8.2); SODIUM 140 mmol/L (136-145); UREA NITROGEN 11 mg/dL (7-18); eGFR NON AFRICAN AMERICAN 81 mL/min (90-120)
[2018-06-12 06:35] VITALS: BP 119/54
[2018-06-12 08:36] VITALS: BP 113/68
[2018-06-12 11:46] VITALS: BP 113/73
[2018-06-12 13:26] VITALS: Ht 182.9 cm; Wt 99.8 kg
[2018-06-12 17:52] VITALS: BP 125/74
[2018-06-12 20:00] VITALS: BP 113/66
[2018-06-13 04:00] VITALS: BP 107/67
[2018-06-13 06:10] LABS: BASOPHILS 0.1 % (0-2); EOSINOPHILS 1.1 % (0-7); HEMOGLOBIN 11.9 g/dL (13.5-17.5); IMMATURE GRANULOCYTES 0.9 % (0-5); LYMPHOCYTES 17.4 % (15-50); MCH 28.2 pg (26.0-34.0); MCHC 33.1 g/dL (31.0-37.0); MCV 85.3 fL (80.0-100.0); MEAN PLATELET VOLUME 10.1 fL (7.4-10.4); MONOCYTES 8.8 % (2-11); NEUTROPHILS 71.7 % (40-80); PLATELET COUNT 282 10x3/uL (130-400); RBC 4.22 10x6/uL (4.20-6.10); WBC 8.8 10x3/uL (4.8-10.8)
[2018-06-13 06:35] LABS: ALBUMIN 2.3 g/dL (3.4-5.0); ALKALINE PHOSPHATASE 62 U/L (46-116); ALT (SGPT) 14 U/L (10-68); BILIRUBIN - TOTAL 0.33 mg/dL (0.2-1.3); CALCIUM 8.2 mg/dL (8.5-10.1); CARBON DIOXIDE 22.7 mmol/L (21.0-32.0); CHLORIDE - SERUM 104 mmol/L (98-107); GLUCOSE 228 mg/dL (74-106); PROTEIN - SERUM 6.4 g/dL (6.4-8.2); SODIUM 140 mmol/L (136-145); eGFR NON AFRICAN AMERICAN 81 mL/min (90-120)
[2018-06-13 06:36] LABS: CALC OSMOLALITY 283 mosm/kg (275-300); POTASSIUM - SERUM 3.4 mmol/L (3.5-5.1); UREA NITROGEN 8 mg/dL (7-18)
[2018-06-13 08:30] VITALS: BP 118/70
[2018-06-13 08:53] VITALS: BP 125/79
[2018-06-13 13:26] VITALS: BP 120/67
[2018-06-13 16:08] VITALS: BP 111/69
[2018-06-14] VITALS (14 sets, daily range): BP systolic 111–138; BP diastolic 64–81
[2018-06-14 04:52] LABS: BASOPHILS 0.1 % (0-2); EOSINOPHILS 0.9 % (0-7); HEMATOCRIT 38.3 % (42.0-54.0); HEMOGLOBIN 12.5 g/dL (13.5-17.5); LYMPHOCYTES 14.2 % (15-50); MCH 27.9 pg (26.0-34.0); MCHC 32.6 g/dL (31.0-37.0); MCV 85.5 fL (80.0-100.0); MONOCYTES 9.3 % (2-11); NEUTROPHILS 74.5 % (40-80); PLATELET COUNT 306 10x3/uL (130-400); RBC 4.48 10x6/uL (4.20-6.10); RDW 14.8 % (11.5-14.5); WBC 9.2 10x3/uL (4.8-10.8)
[2018-06-14 05:23] LABS: ALBUMIN 2.5 g/dL (3.4-5.0); ALKALINE PHOSPHATASE 72 U/L (46-116); BILIRUBIN - TOTAL 0.27 mg/dL (0.2-1.3); CALC OSMOLALITY 282 mosm/kg (275-300); CALCIUM 8.4 mg/dL (8.5-10.1); CARBON DIOXIDE 22.4 mmol/L (21.0-32.0); CHLORIDE - SERUM 104 mmol/L (98-107); GLUCOSE 227 mg/dL (74-106); PROTEIN - SERUM 6.7 g/dL (6.4-8.2); SODIUM 139 mmol/L (136-145); UREA NITROGEN 7 mg/dL (7-18); eGFR NON AFRICAN AMERICAN 81 mL/min (90-120)
[2018-06-14 05:31] LABS: ALT (SGPT) 20 U/L (10-68); POTASSIUM - SERUM 3.7 mmol/L (3.5-5.1)
[2018-06-15] VITALS: BP 110/65
[2018-06-15 03:53] LABS: BASOPHILS 0.1 % (0-2); EOSINOPHILS 0.9 % (0-7); HEMATOCRIT 37.5 % (42.0-54.0); IMMATURE GRANULOCYTES 0.9 % (0-5); LYMPHOCYTES 15.8 % (15-50); MCH 27.6 pg (26.0-34.0); MCV 86.2 fL (80.0-100.0); MEAN PLATELET VOLUME 9.6 fL (7.4-10.4); MONOCYTES 10.8 % (2-11); NEUTROPHILS 71.5 % (40-80); PLATELET COUNT 269 10x3/uL (130-400); RBC 4.35 10x6/uL (4.20-6.10); RDW 15.2 % (11.5-14.5); WBC 9.9 10x3/uL (4.8-10.8)
[2018-06-15 04:00] VITALS: BP 112/66
[2018-06-15 04:10] LABS: ALBUMIN 2.3 g/dL (3.4-5.0); BILIRUBIN - TOTAL 0.54 mg/dL (0.2-1.3); CALCIUM 7.4 mg/dL (8.5-10.1); CREATININE - SERUM 1.1 mg/dL (0.6-1.3); PROTEIN - SERUM 6.4 g/dL (6.4-8.2)
[2018-06-15 04:11] LABS: ANION GAP 13.1 mmol/L (8-16); POTASSIUM - SERUM 3.1 mmol/L (3.5-5.1)
[2018-06-15 09:15] VITALS: BP 100/57
[2018-06-15] MEDS ORDERED: AMOXICILLIN875 MG PO (09:49)
== END 2018-06-15 12:17 | disposition home or self-care (01) | DRG 617 ==
LOC: D.MS 12:17
PROVIDERS: Family Medicine; Podiatrist Foot & Ankle Surgery
PROC: 0HBMXZZ Excision of Right Foot Skin, External Approach (ICD-10-PCS; 2018-06-14)
PROC: 0Y6M0Z9 Detachment at Right Foot, Partial 1st Ray, Open Approach (ICD-10-PCS; principal; 2018-06-14 07:30)
DX: E11.65 Type 2 diabetes mellitus with hyperglycemia (principal); M86.171 Other acute osteomyelitis, right ankle and foot; L97.419 Non-pressure chronic ulcer of right heel and midfoot with unspecified severity; E11.40 Type 2 diabetes mellitus with diabetic neuropathy, unspecified; J44.9 Chronic obstructive pulmonary disease, unspecified; K21.9 Gastro-esophageal reflux disease without esophagitis; E11.69 Type 2 diabetes mellitus with other specified complication; E11.621 Type 2 diabetes mellitus with foot ulcer

== ENCOUNTER → 2018-09-03 13:30 | Outpatient (CLI) | payer MEDICARE ==
[2018-06-12 13:26] VITALS: BMI 29.8
[~2018-09-03 13:30] MED LIST changes: +AMOXICILLIN875 MG PO
== END | disposition home or self-care (01) ==
LOC: D.LABREF 13:30
DX: D48.5 Neoplasm of uncertain behavior of skin (principal)

== ENCOUNTER → 2019-06-11 12:38 | Outpatient (CLI) | payer MEDICARE ==
[2018-06-12 13:26] VITALS: BMI 29.8
--- NOTE | ~2019-06-11 | HEMODYNAMI ---
PATIENT:THOR JAMES MEDICAL RECORD: [id number] : 58 LOCATION:[facility] ADMISSION DATE: 06/11/19 Generatedon:06/11/201914:49 Patient name: THOR JAMES Patient #: [id number] SSN: : 1960 Date of study: 06/11/2019 Page: Of Hemodynamic Procedure Report Patient Data Patient Demographics First Name: THOR Gender: Male Last Name: ERIKA : 1960 Middle Initial: DESIREE Age: 58 year(s) Patient #: [id number] Race: Unknown Additional ID: [id number] Contact details [address]: [address] [place] [address] State: [place] City: [place] Zip code: [address] Past Medical History Allergies: No known allergies Admission Admission Data Admission Date: 06/11/2019 Admission Time: 12:38 Procedure Procedure Types Cath Procedure Peripheral Cath Diagnostic Procedure Silk Worker Peripheral Procedures Miscellaneous Cathetergram Procedure Description Procedure Date Procedure Date: 06/11/2019 Procedure Start Time: 14:32 Procedure Staff Name Function Vanessa Ness RT Finance Specialist Sawyer Connell MD Performing Physician Procedure Data Cath Procedure Fluoroscopy Diagnostic fluoroscopy Total fluoroscopy Time: 0.3 time: 0.3 min min Diagnostic fluoroscopy Total fluoroscopy dose: 22 dose: 22 mGy mGy Contrast Material Contrast Material Type Amount (ml) Isovue 300 15 Hemodynamics Rest Pre Cath Intra NCS Post Cath Procedure Log Time Note 14:23:42 Time tracking: Regular hours (M-F 7:00 - 5:00) 14:23:55 Patient allergic to No known allergies 14:24:13 Right chest area was prepped with chlora-prep and draped in sterile fashion 14:31:21 --------ALL STOP TIME OUT------ 14:31:21 Physician arrived 14:31:23 Final Timeout: patient, procedure, and site verified with staff and physician. All members of the team are in agreement. 14:32:05 Full Disclosure recording started 14:32:05 Procedure started. 14:47:24 contrast injected into port for patency 14:47:28 Procedure ended.(Physican Out) 14:48:04 Full Disclosure recording stopped 14:48:43 Fluoroscopy time 00.30 minutes. 14:48:48 Fluoroscopy dose: 22 mGy 14:48:48 Flurop Dose total: 22 14:48:54 Contrast amount:Isovue 300 15ml. Signature Audit Holly Stage Time Signature Unsigned Intra-Procedure 06/11/2019 Vanessa Ness 2:49:27 PM RT(R) [facility] [address] [place] [address]
== END | disposition home or self-care (01) ==
LOC: D.US 11:30 → D.SP 12:38
PROVIDERS: ATTEND Internal Medicine Hematology & Oncology
DX: Z45.2 Encounter for adjustment and management of vascular access device (principal); M79.605 Pain in left leg; C44.529 Squamous cell carcinoma of skin of other part of trunk

== ENCOUNTER 2019-06-14 08:38 | Outpatient (CLI) | payer MEDICARE ==
[~2019-06-14] VITALS: Ht 182.9 cm; Wt 101.8 kg
--- NOTE | ~2019-06-14 | HEMODYNAMI ---
PATIENT:THOR JAMES MEDICAL RECORD: [id number] : 58 LOCATION:[facility] ADMISSION DATE: 06/14/19 Generatedon:06/14/201912:30 Patient name: THOR JAMES Patient #: [id number] SSN: D OB: 1960 Date of study: 06/14/2019 Page: Of Hemodynamic Procedure Report Patient Data Patient Demographics Procedure consent was obtained First Name: THOR Gender: Male Last Name: ERIKA : 1960 Middle Initial: DESIREE Age: 58 year(s) Patient #: [id number] Race: Unknown Additional ID: [id number] Contact details Address: [address] [place] [address] State: [place] City: [place] Zip code: [address] Past Medical History Allergies Allergen Reaction Date Comments Reported Other allergy 06/14/2019 metropralol Admission Admission Data Admission Date: 06/14/2019 Admission Time: 8:38 Procedure Procedure Types Cath Procedure Peripheral Cath Diagnostic Procedure Venography IVC/SVC Superior Venacagram Procedure Description Procedure Date Procedure Date: 06/14/2019 Procedure Start Time: 11:06 Procedure Staff Name Function Sawyer Connell MD Performing Physician Vanessa Ness RT Monitor Lydia Lopez RN Nurse ROSANA MARY RT Scrub Meera Grijalva RN Nurse Procedure Data Cath Procedure Fluoroscopy Diagnostic fluoroscopy Total fluoroscopy Time: time: 28.8 min 28.8 min Diagnostic fluoroscopy Total fluoroscopy dose: 728 dose: 728 mGy mGy Contrast Material Contrast Material Type Amount (ml) Isovue 300 60 Diagnostic catheters Device Type Used For End Catheter Placement Merit Impress KA2 5Fr 65CM catheter ([id number]) Merit ULTRA BOLUS FLUSH 5Fr 65CM catheter ([id number]) Angiodynamics SOS OMNI 2 NON B 5FR 65CM catheter ([id number]) Merit Impress Riddle 5FR. 100CM catheter ([id number]) Procedure Medications Medication Administration Route Dosage Heparin Flush Bag added to field 2 bags (1000units/500ml NS) Lidocaine 1% added to field 20 Versed I.V. 1 mg Fentanyl I.V. 50 mcg Heparin Bolus I.V. 4000 units Fentanyl I.V. 25 mcg Versed I.V. 0.5 mg Heparin Bolus I.V. 2000 units Hemodynamics Rest Heart Rate: 76 (bpm) Snapshots Pre Cath Intra NCS Post Cath Vital Signs Time Heart Resp SPO2 etCO2 NIBP (mmHg) Rhythm Pain Sedation Rate (ipm) (%) (mmHg) Status Level (bpm) 10:43:29 65 25 99 30.2 144/87(125) NSR 0 (11) 10(A) , No pain 10:47:48 66 17 98 16.6 142/85(117) NSR 0 (11) 10(A) , No pain 10:52:04 69 15 98 28.7 129/86(116) NSR 0 (11) 10(A) , No pain 10:56:14 63 5 100 19.6 141/87(116) NSR 0 (11) 10(A) , No pain 11:00:25 70 14 100 22.6 132/90(113) NSR 0 (11) 10(A) , No pain 11:04:37 69 32 100 25.6 135/87(117) NSR 0 (11) 10(A) , No pain 11:08:49 71 8 100 21.1 144/89(115) NSR 0 (11) 8(A) , No pain 11:13:05 72 10 100 29.5 135/82(112) NSR 0 (11) 10(A) , No pain 11:17:17 80 55 98 0 135/88(115) NSR 0 (11) 8(A) , No pain 11:21:33 76 41 98 14.3 137/78(109) NSR 0 (11) 8(A) , No pain 11:25:49 76 15 98 33.2 134/83(111) NSR 0 (11) 8(A) , No pain 11:30:05 76 42 93 30.2 136/78(107) NSR 0 (11) 8(A) , No pain 11:34:19 76 26 97 24.1 126/85(104) NSR 0 (11) 8(A) , No pain 11:38:29 75 33 99 28.7 132/83(117) NSR 0 (11) 8(A) , No pain 11:42:45 76 25 98 30.2 128/76(106) NSR 0 (11) 8(A) , No pain 11:46:57 78 13 98 32.4 141/81(100) NSR 0 (11) 8(A) , No pain 11:51:13 76 12 98 29.4 140/80(114) NSR 0 (11) 8(A) , No pain 11:55:33 74 34 98 30.9 127/73(109) NSR 0 (11) 8(A) , No pain 11:59:47 77 14 99 30.2 126/73(104) NSR 0 (11) 8(A) , No pain 12:04:01 75 20 98 31.7 123/75(105) NSR 0 (11) 8(A) , No pain 12:08:11 73 21 98 21.8 132/83(109) NSR 0 (11) 10(A) , No pain 12:12:25 73 22 98 31.6 130/81(107) NSR 0 (11) 10(A) , No pain 12:16:37 73 10 98 32.4 141/83(108) NSR 0 (11) 10(A) , No pain 12:20:51 72 26 98 33.9 139/90(109) NSR 0 (11) 10(A) , No pain 12:25:07 86 14 98 22.6 124/83(104) NSR 0 (11) 10(A) , No pain Medications Time Medication Route Dose Verified Delivered Reason Notes Effe ctiveness by by 10:43:12 Heparin Flush added 2 Sawyer Jacques used for Bag to bags Becki Connell procedure (1000units/500ml field MD GRAY NS) 10:47:34 Lidocaine 1% added 20ml Sawyer Jacques for local to vial Becki Connell anesthetic field MD GRAY 11:06:28 Versed I.V. 1 mg Sawyer Estes for Becki Grijalva RN sedation 11:06:41 Fentanyl I.V. 50 Sawyer Mendenhalli for mcg Becki Grijalva RN sedation 11:16:54 Heparin Bolus I.V. 4000 Sawyer Estes used for units Becki Grijalva RN procedure 11:24:20 Fentanyl I.V. 25 Sawyer Estes for mcg Becki Grijalva RN sedation 11:24:28 Versed I.V. 0.5 Sawyer Estes for mg Becki Grijalva RN sedation 12:04:09 Heparin Bolus I.V. 2000 Sawyer Estes used for units Becki causey MD Procedure Log Time Note 10:42:22 Vital chart was started 10:43:12 Heparin Flush Bag (1000units/500ml NS) 2 bags added to field was administered by Sawyer Connell MD; used for procedure; Verbal order read back and verified. 10:43:32 Lydia Lopez RN sent for patient. Start room use. 10:43:34 Time tracking: Regular hours (M-F 7:00 - 5:00) 10:43:38 Plan of Care:Hemodynamics will remain stable., Cardiac rhythm will remain stable., Comfort level will be maintained., Respiratory function will remain adequate., Patient/ family verbilizes understanding of procedure., Procedure tolerated without complication., Recovers from procedure without complications.. 10:43:50 Patient received from Med/Surg to IR Alert and oriented. Tansferred to table in Supine position. 10:43:57 Signed procedure consent form obtained from patient. 10:43:58 Warm blankets applied, and meena hugger turned on for patient comfort. 10:43:58 Correct patient and procedure confirmed by team. 10:43:59 ECG and BP/O2 sat monitors applied to patient. 10:44:00 Baseline sample Acquired. 10:44:02 Full Disclosure recording started 10:44:03 - 10:44:10 H&P Date Dictated: 06/14/2019 H&P Addendum completed by physician on da y of procedure. (MUST COMPLETE FOR ALL OUTPATIENTS). 10:44:12 Pre-op teaching completed and patient verbalized understanding. 10:44:14 Family in waiting room. 10:44:16 Patient NPO since Midnight. 10:44:33 Patient allergic to Other allergymetropralol 10:44:35 Is the patient allergic to Iodine/contrast media? No. 10:44:49 Is patient on blood thinner?No 10:44:53 Patient diabetic? Yes. 10:45:09 If diabetic: On Metformin? No 10:45:12 ----Pre-sedation anethsthesia assessment.---- 10:45:55 Previous problem with sedation/anesthesia? No ? 10:45:57 Snore? Yes 10:46:05 Sleep apnea? Yes 10:46:06 Deviated septum? No 10:46:08 Opens mouth fully? Yes 10:46:09 Sticks out tongue? Yes 10:46:13 Airway obstruction? Yes COPD 10:46:18 Dentures? Yes SECURE 10:46:20 - 10:46:32 IV patent on arrival in left antecubital with 0.45%NaCl at KVO. 10:46:41 Right groin area was prepped with chlora-prep and draped in sterile fashion 10:46:42 Alarms reviewed by RLlois NLolis 10:46:42 Sharps counted by scrub and verified by R.N. 10:46:44 - 10:46:47 Use device set IR Diagnostic 10:46:48 Bag Decgreg (2001S) opened to sterile field. 10:46:49 Sterile Angiographic Pack opened to sterile field. 10:46:49 Tegaderm 4 x 4 (1626W) opened to sterile field. 10:47:04 SHEATH 5FR Union ([id number]) opened to sterile field. 10:47:05 MICROPUNCTURE 4FR Fernando ([id number]) opened to sterile field. 10:47:05 BENTSON 145cm wire ([id number]) opened to sterile field. 10:47:28 - 10:47:34 Lidocaine 1% 20ml vial added to field was administered by Sawyer cloud MD; for local anesthetic; Verbal order read back and verified. 10:55:34 COOK SHEATH 8FR. ANSL 45CM, ([id number]) opened to sterile field. 10:55:35 INFLATOR BasixTOUCH (VC9770) opened to sterile field. 10:57:06 - 10:57:16 Fire Safety Assessment: A--An alcohol-based skin anteseptic being used preoperatively., C--Open oxygen or nitrous oxide is being used. 10:57:25 2) 60-89 Mildly reduced kidney function, and other findings (as for stage 1) point to kidney disease. 11:05:31 Physician arrived 11:05:32 --------ALL STOP TIME OUT------ 11:05:33 Final Timeout: patient, procedure, and site verified with staff and physician. All members of the team are in agreement. 11:06:02 Procedure started. 11:06:08 Local anesthetic to right femoral vein with Lidocaine 1% by Sawyer Connell MD.INITIAL ACCESS ONLY 11:06:28 Versed 1 mg I.V. was administered by Meera Grijalva RN; for sedation; Verbal order read back and verified. 11:06:41 Fentanyl 50 mcg I.V. was administered by Meera Grijalva RN; for sedation; Verbal order read back and verified. 11:12:09 A Merit Impress KA2 5Fr 65CM catheter ([id number]) was advanced over the wire and used for . 11:14:11 MARTINEZ 180cm wire ([id number]) opened to sterile field. 11:14:32 Inflate balloon Inflation number: 1 A ATLAS 16 x 4 x 75CM balloon ([id number]) was prepped and advanced across the Undefined1 , then inflated . 11:16:54 Heparin Bolus 4000 units I.V. was administered by Meera Grijalva RN; used for procedure; Verbal order read back and verified. 11:21:53 A ArcMail ULTRA BOLUS FLUSH 5Fr 65CM catheter ([id number]) was advanced over the wire and used for . 11:24:20 Fentanyl 25 mcg I.V. was administered by Meera Grijalva RN; for sedation; Verbal order read back and verified. 11:24:28 Versed 0.5 mg I.V. was administered by Meera Grijalva RN; for sedation; Verbal order read back and verified. 11:25:17 SNARE GOOSENECK 20MM LOOP 120C opened to sterile field. 11:32:01 GLIDE WIRE ANGLE 180cm ([id number]) opened to sterile field. 11:41:29 A AngiodynamTideland Signal Corporation SOS OMNI 2 NON B 5FR 65CM catheter ([id number]) was advanced over the wire and used for . 12:01:30 A ArcMail Impress Riddle 5FR. 100CM catheter ([id number]) was advanced over the wire and used for . 12:01:43 AMPLATZ Super stiff 180cm wire ([id number]) opened to sterile field. 12:01:52 James 5Fr embolectomy catheter opened to sterile field. 12:04:09 Heparin Bolus 2000 units I.V. was administered by Meera Grijalva RN; used for procedure; Verbal order read back and verified. 12:05:47 ROADRUNNER .035 145 glide wire ([id number]) opened to sterile field. 12:16:37 Procedure ended.(Physican Out) 12:16:50 Fluoroscopy time 28.80 minutes. 12:16:57 Fluoroscopy dose: 728 mGy 12:16:57 Flurop Dose total: 728 12:17:22 Contrast amount:Isovue 300 60ml. 12:17:24 Procedure and supply charges have been captured, reviewed, submitted an d are correct. 12:28:15 Report given to Med/Surg. 12:30:03 Vital chart was stopped Intervention Summary Intervention Notes Time ActionType Lesion and Equipment Action# Pressure Duration Attributes Used 11:14:32 Inflate Undefined1 ATLAS 16 1 0 00:00 balloon x 4 x 75CM balloon ([id number]) Device Usage Item Name Manufacture Quantity Catalog Number Hospital Part Current M inimal Lot# / Charge Number Stock Stock Serial# Code Bag Decanter Microtek 1 [id number] 26117 093119 5 () [employer]. Sterile Cardinal 1 [id number] 896704 738773 5 Angiographic Health Pack Tegaderm 4 x 4 3M 1 1626W 598408 009805 260000 5 (1626W) SHEATH 5FR Terumo 1 GRZ716 826576 889424 047031 5 Union ([id number]) MICROPUNCTURE [facility] 1 X09615 245883 097862 255931 5 4FR Pidefarma (M44447) BENTSON 145cm [facility] 1 M40446 791602 949111 5 wire ([id number]) COOK SHEATH [facility] 1 T89289 186808 99965 2605400 1 [id number] 8FR. ANSL 45CM, (P10624) INFLATOR [facility] 1 EQ2392 198994 353210 797727 5 BasixTOUCH (HI4943) Merit Impress [facility] 1 [id number] 453314 229249 5 KA2 5Fr 65CM catheter ([id number]) MARTINEZ 180cm [facility] 1 G37170 235289 103147 5 wire (C23581) ATLAS 16 x 4 x Bard 1 [id number] 518043 230336 5 75CM balloon ([id number]) Merit ULTRA [facility] 1 [id number] 818662 551842 5 BOLUS FLUSH 5Fr 65CM catheter ([id number]) SNARE Medtronic 1 BX1443 796370 014520 788107 5 GOOSENECK 20MM LOOP 120C GLIDE WIRE Terumo 1 YO1921 170696 260847 342594 5 ANGLE 180cm (LO4940) Angiodynamics Angiodynamics 1 [id number] 848446 63867 645667 5 SOS OMNI 2 NON B 5FR 65CM catheter ([id number]) Merit Impress Merit Medical 1 [id number] 962208 342482 5 Riddle 5FR. 100CM catheter ([id number]) AMPLATZ [employer] [place] 1 [id number] 534210 176870 726634 5 stiff 180cm Scientific wire ([id number]) James 5Fr Ash 1 [id number] 212361 268701 5 embolectomy [employer]esciences [facility] 1 F26054 400586 305104 083913 5 [id number] .035 145 glide wire (V78960) Signature Audit [place] Stage Time Signature Unsigned Intra-Procedure 06/14/2019 Vanessa Ness 12:29:58 PM RT(R) [facility] [address] [place] [address]
[2019-06-14 09:03] LABS: BASOPHILS 0.2 % (0-2); EOSINOPHILS 0.7 % (0-7); HEMATOCRIT 45.2 % (42.0-54.0); HEMOGLOBIN 14.3 g/dL (13.5-17.5); IMMATURE GRANULOCYTES 1.1 % (0-5); LYMPHOCYTES 21.2 % (15-50); MCH 29.2 pg (26.0-34.0); MCHC 31.6 g/dL (31.0-37.0); MCV 92.2 fL (80.0-100.0); MEAN PLATELET VOLUME 9.8 fL (7.4-10.4); MONOCYTES 9.7 % (2-11); NEUTROPHILS 67.1 % (40-80); RDW 15.2 % (11.5-14.5); WBC 9.3 10x3/uL (4.8-10.8)
[2019-06-14 09:04] LABS: PLATELET COUNT 135 10x3/uL (130-400)
[2019-06-14 09:18] LABS: ANION GAP 12.5 mmol/L (8-16); CALCIUM 8.3 mg/dL (8.5-10.1); CREATININE - SERUM 1.1 mg/dL (0.6-1.3); POTASSIUM - SERUM 3.5 mmol/L (3.5-5.1)
[2019-06-14 09:35] LABS: INR 0.98 (0.85-1.17); PROTIME 12.5 SECONDS (11.6-15.0)
[2019-06-14 10:12] VITALS: BP 129/77; Ht 182.9 cm; Wt 101.8 kg
[2019-06-14 14:00] VITALS: BP 132/77
--- NOTE | 2019-06-14 14:30 | NUR ---
PATIENT HAD BM AND VOIDED WITH NO PROBLEM. IV REMOVED WITH CATH TIP INTACT. PORT ACCESSED REMOVED. TOLERATING PO WITH NO NAUSEA OR VOMITTING. CALL LIGHT WITHIN REACH.
--- NOTE | 2019-06-14 14:50 | NUR ---
PATIENT RECIEVED DC INSTRUCTIONS. VERBALIZED UNDERSTANDING. FAMILY AT BEDSIDE.NO QUESTIONS AT THIS TIME. PATIENT ASSISTED DOWN TO PRIVATE VEHICLE WITH PERSONAL BELONGINGS IN WC BY RN.
== END 2019-06-14 15:02 | disposition home or self-care (01) ==
LOC: D.SP 08:38 → D.MS 09:00 → D.SP 10:30 → D.RAD 10:30 → D.SP 15:02
PROVIDERS: Radiology Diagnostic Radiology; ATTEND Internal Medicine Hematology & Oncology
DX: T82.594A Other mechanical complication of infusion catheter, initial encounter (principal); C44.529 Squamous cell carcinoma of skin of other part of trunk; Z45.2 Encounter for adjustment and management of vascular access device; I87.1 Compression of vein; Y83.9 Surgical procedure, unspecified as the cause of abnormal reaction of the patient, or of later complication, without mention of misadventure at the time of the procedure

== ENCOUNTER 2019-06-19 05:45 | Outpatient (CLI) | payer MEDICARE ==
[~2019-06-19] VITALS: Ht 182.9 cm; Wt 101.8 kg
--- NOTE | ~2019-06-19 | HEMODYNAMI ---
PATIENT:THOR JMAES MEDICAL RECORD: [id number] : 58 LOCATION:[facility] ADMISSION DATE: 06/19/19 Generatedon:06/19/20199:39 Patient name: THOR JAMES Patient #: [id number] SSN: D OB: 1960 Date of study: 06/19/2019 Page: Of Hemodynamic Procedure Report Patient Data Patient Demographics Procedure consent was obtained First Name: THOR Gender: Male Last Name: ERIKA : 1960 Middle Initial: DESIREE Age: 58 year(s) Patient #: [id number] Race: Unknown Additional ID: [id number] Contact details Address: [address] [place] [address] State: [place] City: [place] Zip code: [address] Past Medical History Allergies Allergen Reaction Date Comments Reported Other allergy 06/14/2019 metropralol Other allergy 06/19/2019 metoprolol Admission Admission Data Admission Date: 06/19/2019 Admission Time: 5:45 Height (in.): 72 BSA: 2.24 (m2) Height (cm.): 182.88 BMI: 30.38 (kg/m2) Weight (lbs.): 224 Weight (kg.): 101.6 Procedure Procedure Types Cath Procedure Peripheral Cath Diagnostic Procedure Construction Equipment Operator Peripheral Procedures INFUSAPORT REMOVAL Procedure Description Procedure Date Procedure Date: 06/19/2019 Procedure Start Time: 8:36 Procedure Staff Name Function Sawyer Connell MD Performing Physician Vanessa Ness RT Road Crossing Guard Meera Grijalva RN Nurse Lydia Lopez RN Nurse ROSANA MARY RT Scrub Procedure Data Cath Procedure Fluoroscopy Diagnostic fluoroscopy Total fluoroscopy Time: 0.8 time: 0.8 min min Diagnostic fluoroscopy Total fluoroscopy dose: 15 dose: 15 mGy mGy Procedure Medications Medication Administration Route Dosage Heparin Flush Bag added to field 2 bags (1000units/500ml NS) Lidocaine 1% added to field 20 Ancef (1Gm/50ml NS) I.V.P.B 2 g Versed I.V. 1 mg Fentanyl I.V. 50 mcg Versed I.V. 1 mg Fentanyl I.V. 50 mcg Versed I.V. 1 mg Fentanyl I.V. 50 mcg Versed I.V. 0.5 mg Fentanyl I.V. 25 mcg Versed I.V. 0.5 mg Fentanyl I.V. 25 mcg Hemodynamics Rest BSA: 2.24 (m2) O2 Consumption: Estimated: 260.25 (ml/min) O2 Consumption indexed : Estimated:116.18 (ml/min/m) Heart Rate: 66 (bpm) Snapshots Pre Cath Intra NCS Post Cath Vital Signs Time Heart Resp SPO2 etCO2 NIBP (mmHg) Rhythm Pain Sedation Rate (ipm) (%) (mmHg) Status Level (bpm) 8:21:42 64 13 99 30.8 137/84(107) NSR 0 (11) 10(A) , No pain 8:26:00 69 19 99 27.8 129/77(114) NSR 0 (11) 10(A) , No pain 8:30:16 66 11 99 30.8 138/74(97) NSR 0 (11) 10(A) , No pain 8:34:30 69 16 99 30.8 130/83(107) NSR 0 (11) 9(A) , No pain 8:38:44 70 21 98 30.1 136/82(107) NSR 0 (11) 9(A) , No pain 8:42:58 72 23 98 36.1 129/79(105) NSR 0 (11) 8(A) , No pain 8:47:12 75 19 98 31.6 128/81(107) NSR 0 (11) 8(A) , No pain 8:51:26 76 15 98 38.3 130/80(107) NSR 0 (11) 8(A) , No pain 8:55:40 75 20 98 37.6 133/77(94) NSR 0 (11) 8(A) , No pain 8:59:56 79 13 98 36.1 121/76(103) NSR 0 (11) 8(A) , No pain 9:04:08 74 14 98 37.6 124/74(100) NSR 0 (11) 8(A) , No pain 9:08:22 76 13 98 36.8 123/76(95) NSR 0 (11) 8(A) , No pain 9:12:36 76 12 98 36.8 120/74(98) NSR 0 (11) 8(A) , No pain 9:16:47 77 13 98 36.1 119/77(101) NSR 0 (11) 8(A) , No pain 9:20:59 76 14 98 35.3 123/71(100) NSR 0 (11) 8(A) , No pain 9:25:11 75 12 98 38.3 121/73(91) NSR 0 (11) 8(A) , No pain 9:29:21 80 20 98 25.5 120/78(100) NSR 0 (11) 8(A) , No pain 9:33:48 0 No Cuff NSR 0 (11) 8(A) , No pain 9:37:23 0 No Cuff NSR 0 (11) 8(A) , No pain Medications Time Medication Route Dose Verified Delivered Reason Notes Effe ctiveness by by 8:20:59 Heparin Flush added 2 Sawyer Jacques used for Bag to bags Becki Connell procedure (1000units/500ml field MD GRAY NS) 8:21:11 Lidocaine 1% added 20ml Sawyer Jacques for local to vial Becki Connell anesthetic field MD GRAY 8:37:43 Ancef (1Gm/50ml I.V.P.B 2 g Sawyer Estes used for NS) Becki Grijalva blood bank coordinator 8:37:55 Versed I.V. 1 mg Sawyer Freeman for Becki Lopez RN sedation 8:38:09 Fentanyl I.V. 50 Sawyer Freeman for mcg Becki Lopez RN sedation 8:50:41 Versed I.V. 1 mg Sawyer Estes for Becki Grijalva RN sedation 8:50:50 Fentanyl I.V. 50 Sawyer Estes for mcg Becki Grijalva RN sedation 9:02:27 Versed I.V. 1 mg Sawyer Mendenhalli for Becki Grijalva RN sedation 9:02:34 Fentanyl I.V. 50 Sawyer Estes for mcg Becki Grijalva RN sedation 9:15:17 Versed I.V. 0.5 Sawyer Estes for mg Beckijuarez Grijalva RN sedation 9:15:29 Fentanyl I.V. 25 Sawyer Estes for mcg Becki Grijalva RN sedation 9:22:07 Versed I.V. 0.5 Sawyer Estes for mg Becki Grijalva RN sedation 9:22:18 Fentanyl I.V. 25 Sawyer Estes for mcg Becki Grijalva RN sedation Procedure Log Time Note 7:56:14 Patient Height : 72 inches 7:56:18 Patient Weight : 224 lbs 7:56:44 Use device set IR Diagnostic 7:56:47 Sterile Angiographic Pack opened to sterile field. 7:56:48 Bag Decanter (2002S) opened to sterile field. 8:20:29 Vital chart was started 8:20:59 Heparin Flush Bag (1000units/500ml NS) 2 bags added to field was administered by Sawyer Connell MD; used for procedure; Verbal order read back and verified. 8:21:11 Lidocaine 1% 20ml vial added to field was administered by Sawyer Connell MD; for local anesthetic; Verbal order read back and verified. 8:23:00 Micropuncture VSI 4FR kit opened to sterile field. 8:23:10 Dermabond Pen opened to sterile field. 8:23:24 Time tracking: Regular hours (M-F 7:00 - 5:00) 8:23:32 Plan of Care:Hemodynamics will remain stable., Cardiac rhythm will remain stable., Comfort level will be maintained., Respiratory function will remain adequate., Patient/ family verbilizes understanding of procedure., Procedure tolerated without complication., Recovers from procedure without complications.. 8:23:39 Patient received from Outpatients to IR Alert and oriented. Tansferred to table in Supine position. 8:23:42 Signed procedure consent form obtained from patient. 8:23:53 Correct patient and procedure confirmed by team. 8:23:53 ECG and BP/O2 sat monitors applied to patient. 8:23:57 Baseline sample Acquired. 8:23:59 Full Disclosure recording started 8:24:00 8:24:08 H&P Date Dictated: 06/19/2019 Within 30 days and on chart., H&P Addendum completed by physician on day of procedure. (MUST COMPLETE FOR ALL OUTPATIENTS). 8:24:10 Pre-procedure instructions explained to patient. 8:24:11 Pre-op teaching completed and patient verbalized understanding. 8:24:13 Family in waiting room. 8:24:16 Patient NPO since Midnight. 8:24:42 Patient allergic to Other allergymetoprolol 8:24:46 Is the patient allergic to Iodine/contrast media? No. 8:24:56 Is patient on blood thinner?No 8:25:05 Patient diabetic? Yes. 8:26:20 ----Pre-sedation anethsthesia assessment.---- 8:26:24 Previous problem with sedation/anesthesia? No ? 8:26:26 Snore? Yes 8:26:28 Sleep apnea? Yes 8:26:30 Deviated septum? No 8:26:32 Opens mouth fully? Yes 8:26:35 Sticks out tongue? Yes 8:26:39 Airway obstruction? Yes copd 8:26:46 Dentures? Yes secured 8:26:51 8:35:16 IV patent on arrival in left forearm with D5/.45%NaCl at KVO. 8:35:30 Right chest area was prepped with chlora-prep and draped in sterile fashion 8:35:36 Physician arrived 8:35:37 --------ALL STOP TIME OUT------ 8:35:38 Final Timeout: patient, procedure, and site verified with staff and physician. All members of the team are in agreement. 8:36:45 Procedure started. 8:36:52 Local anesthetic to right IJ vein with Lidocaine 1% by Sawyer Connell MD.INITIAL ACCESS ONLY 8:37:43 Ancef (1Gm/50ml NS) 2 g I.V.P.B was administered by Meera Grijalva RN; used for procedure; Verbal order read back and verified. 8:37:55 Versed 1 mg I.V. was administered by Lydia Lopez RN; for sedation; Verbal order read back and verified. 8:38:09 Fentanyl 50 mcg I.V. was administered by Lydia Lopez RN; for sedation; Verbal order read back and verified. 8:50:41 Versed 1 mg I.V. was administered by Meera Grijalva RN; for sedation; Verbal order read back and verified. 8:50:50 Fentanyl 50 mcg I.V. was administered by Meera Grijalva RN; for sedation; Verbal order read back and verified. 8:53:21 ROADRUNNER .035 145 glide wire ([id number]) opened to sterile field. 9:02:27 Versed 1 mg I.V. was administered by Meera Grijalva RN; for sedation; Verbal order read back and verified. 9:02:34 Fentanyl 50 mcg I.V. was administered by Meera Grijalva RN; for sedation; Verbal order read back and verified. 9:14:59 SUTURE L27IN 2-0 MCRYL TAMRA MO opened to sterile field. 9:15:00 SUTURE L27IN 2-0 MCRYL TAMRA MO opened to sterile field. 9:15:17 Versed 0.5 mg I.V. was administered by Meera Grijalva RN; for sedation; Verbal order read back and verified. 9:15:29 Fentanyl 25 mcg I.V. was administered by Meera Grijalva RN; for sedation; Verbal order read back and verified. 9:22:07 Versed 0.5 mg I.V. was administered by Meera Grijalva RN; for sedation; Verbal order read back and verified. 9:22:18 Fentanyl 25 mcg I.V. was administered by Meera Grijalva RN; for sedation; Verbal order read back and verified. 9:31:32 Procedure ended.(Physican Out) 9:32:19 Fluoroscopy time 00.80 minutes. 9:32:24 Fluoroscopy dose: 15 mGy 9:32:24 Flurop Dose total: 15 9:35:30 Procedure and supply charges have been captured, reviewed, submitted and are correct. 9:39:24 Vital chart was stopped Device Usage Item Name Manufacture Quantity Catalog Hospital Part Current Minima l Lot# / Number Charge Number Stock Stock Serial# Code Sterile [place] 1 [id number] 5 Angiographic Health Pack Bag Decanter Microtek 1 [id number] 83360 144240 5 () Medical Inc. Micropuncture VSI VASCULAR 1 [id number] 629737 481992 5 VSI 4FR kit SOLUTIONS Dermabond Pen Ethicon 1 DNX6 598900 147017 5 [facility] 1 [id number] 866996 295646 243045 5 [id number] .035 145 glide wire (R48851) SUTURE L27IN Ethicon 2 [id number] 627466 5 2-0 MCRYL TAMRA MO Signature Audit [place] Stage Time Signature Unsigned Intra-Procedure 06/19/2019 Vanessa Ness 9:39:21 AM RT(R) [facility] [address] [place] [address]
[2019-06-19 06:15] LABS: ANION GAP 15.3 mmol/L (8-16); CALCIUM 8.7 mg/dL (8.5-10.1); CARBON DIOXIDE 26.5 mmol/L (21.0-32.0); CREATININE - SERUM 1.2 mg/dL (0.6-1.3); POTASSIUM - SERUM 3.8 mmol/L (3.5-5.1)
[2019-06-19 06:19] LABS: BASOPHILS 0.2 % (0-2); EOSINOPHILS 0.6 % (0-7); HEMATOCRIT 43.3 % (42.0-54.0); HEMOGLOBIN 14.2 g/dL (13.5-17.5); LYMPHOCYTES 22.7 % (15-50); MCH 29.6 pg (26.0-34.0); MCHC 32.8 g/dL (31.0-37.0); MCV 90.2 fL (80.0-100.0); MEAN PLATELET VOLUME 10.1 fL (7.4-10.4); MONOCYTES 10.7 % (2-11); NEUTROPHILS 64.8 % (40-80); PLATELET COUNT 145 10x3/uL (130-400); PROTIME 12.7 SECONDS (11.6-15.0); RDW 14.7 % (11.5-14.5); WBC 8.9 10x3/uL (4.8-10.8)
[2019-06-19 06:43] VITALS: BP 123/76; Ht 182.9 cm; Wt 101.8 kg
== END 2019-06-19 11:08 | disposition home or self-care (01) ==
LOC: D.SP 05:45
PROVIDERS: ATTEND Radiology Diagnostic Radiology
DX: C44.529 Squamous cell carcinoma of skin of other part of trunk (principal)

== ENCOUNTER → 2019-07-31 14:46 | Outpatient (CLI) | payer MEDICARE ==
[2019-06-19 06:43] VITALS: BMI 30.4
== END | disposition home or self-care (01) ==
LOC: D.RAD 14:46
PROVIDERS: ATTEND Internal Medicine Hematology & Oncology
DX: C44.529 Squamous cell carcinoma of skin of other part of trunk (principal); J44.9 Chronic obstructive pulmonary disease, unspecified

== ENCOUNTER → 2019-09-16 19:53 | Outpatient (CLI) | payer MEDICARE ==
[2019-06-19 06:43] VITALS: BMI 30.4
== END | disposition home or self-care (01) ==
LOC: D.LABREF 19:53
PROVIDERS: ATTEND Podiatrist Foot & Ankle Surgery
DX: L02.416 Cutaneous abscess of left lower limb (principal)

== ENCOUNTER → 2019-09-27 09:13 | Outpatient (CLI) | payer MEDICARE ==
[2019-06-19 06:43] VITALS: BMI 30.4
--- NOTE | 2019-09-30 11:19 | EC ---
PATIENT:THOR JAMES DATE OF SERVICE: 09/27/19 SEX: M MEDICAL RECORD: [id number] DATE OF : 58 [facility] AGE OF PATIENT: 59 ADMISSION DATE: 09/27/19 REFERRING PHYSICIAN: INTERPRETING PHYSICIAN: MIKE LANDRY MD ECHOCARDIOGRAM REPORT ECHO CHARGES 4 ECHO COMPLETE Date: 09/27/19 CLINICAL DIAGNOSIS: HEART MURMUR HX OF CHEMOTHERAPY ECHOCARDIOGRAPHIC MEASUREMENTS (adult normal given) AC root (d.<3.7cm) 3.5 cm LV Septum d (<1.2 cm> 1.2 cm Valve Excursion 1.7 cm LV Septum (systole) 1.6 cm Left Atria (s.<4.0cm> 4.3 cm LVPW d(<1.2cm) 1.5 cm RV (d.<2.3cm) 3.6 cm LVPW (sytole) 1.8 cm LV diastole(<5.6CM) 5.0 cm MV E-F(>70mm/sec) cm LV systole 3.0 cm LVOT Diameter 2.2 cm MV exc.(>10mm) 1.7 cm Est.ejection fraction (50-75%) % DOPPLER: LVIT cm/sec A 50.0 cm/sec E 105.0 cm/sec LA cm/sec RVSP 18 mmHg LVOT 95 cm/sec AOP1/2T m/s Asc. Ao 116 cm/sec RVOT 84 cm/sec RA cm/sec PA 115 cm/sec AV Gradient Peak 5.40 mmHg AV Mean 2.85 mmHg AV Area 2.8 cm MV Gradient Peak 6.06 mmHg MV Mean 1.60 mmHg MV Area cm COMMENTS: Health And Social Care Teacher: 2 DAVY MAKI Handkerchief Cutter: 3 Dr. Mcgrath TAPE# PACS Pericardial Effusion N DATE OF SERVICE: Adequate 2D, color flow imaging, spectral Doppler, and M-Mode. Mild LVH. LV internal dimension is normal. Wall motion is normal. EF is greater than or equal to 55%. Aortic valve is tricuspid. No evidence of stenosis by Doppler interrogation. Left atrium is mildly dilated at 4.3 cm. Mitral valve shows no prolapse. Trace MR. Right-sided chambers are grossly normal. Trace TR. ECHOCARDIOGRAM REPORT [id number] THOR JAMES TRANSINT:[id number] Voice Confirmation ID: [id number] DOCUMENT ID: [id number] MIKE LANDRY MD at 1119 CC: [id number] DICTATION DATE: 09/29/19 121 ICT CUSTOMER SUPPORT OFFICER: 09/29/192222 DEP CLI 09/27/19 [place] [id number] [place] [id number]
== END | disposition home or self-care (01) ==
LOC: D.HCCECHO 09:13
PROVIDERS: ATTEND Internal Medicine Cardiovascular Disease
DX: R01.1 Cardiac murmur, unspecified (principal); I20.9 Angina pectoris, unspecified

== ENCOUNTER 2019-10-17 11:03 | Outpatient (CLI) | payer MEDICARE ==
[~2019-10-17] VITALS: Ht 182.9 cm; Wt 95.5 kg
--- NOTE | ~2019-10-17 | HEMODYNAMI ---
PATIENT:THOR JAMES MEDICAL RECORD: [id number] : 58 LOCATION:DLolisCAT ADMISSION DATE: 10/17/19 Generatedon:10/17/201913:15 Patient name: THOR JAMES Patient #: [id number] SSN: [id number] : 1960 Date of study: 10/17/2019 Page: Of Hemodynamic Procedure Report Patient Data Patient Demographics Procedure consent was obtained First Name: THOR Gender: Male Last Name: ERIKA : 1960 [facility] Initial: DESIREE Age: 59 year(s) Patient #: [id number] Race: SSN: [id number] Additional ID: [id number] Contact details [address]: [address] [place] [address] State: [place] City: [place] Zip code: [address] Past Medical History Allergies Allergen Reaction Date Comments Reported Other allergy 06/14/2019 metropralol Other allergy 06/19/2019 metoprolol Other allergy 10/17/2019 metoprolol Admission Admission Data Admission Date: 10/17/2019 Admission Time: 11:03 Admit Source: Other Insurance Payor: Private health insurance [facility] #: [id number] Height (in.): 71 BSA: 2.16 (m2) Height (cm.): 180.34 BMI: 29.43 (kg/m2) Weight (lbs.): 211 Weight (kg.): 95.71 Lab Results Lab Result Date: 10/17/2019 Lab Result Time: 11:55 Biochemistry Name Units Result Min Max BUN mg/dl 11 --(-*--)-- 7 18 Creatinine mg/dl 0.9 --(-*--)-- 0.6 1.3 CBC Name Units Result Min Max Hematocrit % 41.2 -*(----)-- 42 54 Hemoglobin g/dl 12.8 -*(----)-- 13.5 17.5 Procedure Procedure Types Cath Procedure Diagnostic Procedure [facility] w/Coronaries Procedure Description Procedure Date Procedure Date: 10/17/2019 Procedure Start Time: 13:06 Procedure End Time: 13:13 Procedure Staff Name Function Ori Crenshaw MD Performing Physician Anselmo Jordan RT Monitor Eileen Barnett RT Scrub Yu Davis RN Nurse Procedure Data Cath Procedure Fluoroscopy Diagnostic fluoroscopy Total fluoroscopy Time: 0.7 time: 0.7 min min Diagnostic fluoroscopy Total fluoroscopy dose: 268 dose: 268 mGy mGy Contrast Material Contrast Material Type Amount (ml) Isovue 370 35 Entry Location Entry Primary Successful Side Size Upsize Upsize Entry Closure Fischer ccessful Closure Location (Fr) 1 (Fr) 2 (Fr) Remarks Device Remarks Radial Right 6 Fr Mechanical artery Short Compression Estimated blood loss: 5 ml Diagnostic catheters Device Type Used For End Catheter Placement DIAGNOSTIC [place] 110cm 5 Procedure Fr catheter ([id number]) Procedure Complications No complications Procedure Medications Medication Administration Route Dosage Oxygen etCO2 Nasal cannula 2 l/min Lidocaine 2% added to field 20 Heparin Flush Bag added to field 2 bags (1000units/500ml NS) 0.9% NaCl I.V. 100 ml/hr Versed I.V. 2 mg Fentanyl I.V. 100 mcg Versed I.V. 1 mg Fentanyl I.V. 50 mcg Radial Cocktail I.A. 1 syringe (Verapamil 2mg/Nitro 400mcg/Heparin 1500units) Hemodynamics Rest BSA: 2.16 (m2) HGB: 12.8 (g/dl) O2 Consumption: Estimated: 259.1 (ml/min) O2 Con sumption indexed: Estimated:119.95 (ml/min/m) Heart Rate: 76 (bpm) Pressure Samples Time Site Value (mmHg) Purpose Heart Use Rate(bpm) 13:08 LV 74/8,8 Snapshot 90 13:08 LV 123/8,11 Snapshot 89 13:08 AO 100/74(87) Pullback 86 Gradients Valve Time Site Site 2 Mean SEP/DFP Peak To Heart Use 1 (mmHg) (sec/min) Peak Rate (mmHg) (bpm) Aortic 13:08 LV AO 86 100/74(87) Snapshots Pre Cath Intra NCS Post Cath Vital Signs Time Heart Resp SPO2 etCO2 NIBP (mmHg) Rhythm Pain Sedation Rate (ipm) (%) (mmHg) Status Level (bpm) 12:53:01 73 11 100 21 127/80(102) NSR 0 (11) 10(A) , No pain 12:57:11 77 16 95 26.2 123/81(99) NSR 0 (11) 10(A) , No pain 13:01:19 77 13 94 3 119/78(95) NSR 0 (11) 10(A) , No pain 13:05:27 75 15 97 0 119/76(91) NSR 0 (11) 10(A) , No pain 13:09:35 84 13 94 16.5 116/71(81) NSR 0 (11) 9(A) , No pain 13:13:20 83 15 94 27 110/75(92) NSR 0 (11) 10(A) , No pain Medications Time Medication Route Dose Verified Delivered Reason Notes Effectiveness by by 12:51:38 Oxygen etCO2 2 l/min Ori Kojoie used for Nasal St Jm Davis RN procedure cannula 12:51:44 Lidocaine 2% added 20ml Ori Krishnanory for local to vial [facility] anesthetic field MD GRAY 12:51:51 Heparin Flush added 2 bags Ori Rehman used for Bag to [facility] procedure (1000units/500ml field MD GRAY NS) 12:51:59 0.9% NaCl I.V. 100 Oriyamilex Nicholas Per ml/hr St Jm Davis RN physician 13:01:26 Versed I.V. 2 mg Ori Varmaie for sedation St Jm Davis RN, MD 13:01:32 Fentanyl I.V. 100 mcg Ori Nicholas for sedation St Jm Davis RN, MD 13:07:07 Versed I.V. 1 mg Ori Nicholas for sedation St Jm Davis RN, MD 13:07:11 Fentanyl I.V. 50 mcg Ori Nicholas for sedation St Jm Davis RN, MD 13:08:17 Radial Cocktail I.A. 1 Ori Rehman for (Verapamil syringe [facility] vasodilation 2mg/Nitro MD GRAY 400mcg/Heparin 1500units) Procedure Log Time Note 12:31:37 Informed consent obtained and on chart 12:32:27 Insurance Payor : Private health insurance 12:32:43 Admit Source: Other 12:33:32 Patient Height : 71 inches 12:33:36 Patient Weight : 211 lbs 12:35:41 Eileen Barnett RT(R) sent for patient. Start room use. 12:40:04 Lab Result : BUN 11 mg/dl 12:40:04 Lab Result : Hemoglobin 12.8 g/dl 12:40:04 Lab Result : Hematocrit 41.2 % 12:40:04 Lab Result : Creatinine 0.9 mg/dl 12:43:23 Diagnostic Cath Status : Elective 12:43:33 ACC Patient presents with Stable Angina CCS Anginal Class 2--Slight limitation of ordinary activity. 12:43:36 ACCPatient has been prescribed/administered the following anti-anginal medication within the last 2 weeks: None 12:43:38 Procedure Status Elective Heart Cath (OP). 12:43:47 Time tracking: Regular hours (M-F 7:00 - 5:00) 12:43:50 Plan of Care:Hemodynamics will remain stable., Cardiac rhythm will remain stable., Comfort level will be maintained., Respiratory function will remain adequate., Patient/ family verbilizes understanding of procedure., Procedure tolerated without complication., Recovers from procedure without complications.. 12:43:55 Patient received from Pre/Post Procedure Room to CCL 2 Alert and oriented. Tansferred to table in Supine position. 12:43:56 Warm blankets applied, and meena hugger turned on for patient comfort. 12:43:57 Correct patient and procedure confirmed by team. 12:43:58 ECG and BP/O2 sat monitors applied to patient. 12:44:09 H&P Date Dictated: 10/15/2019 Within 30 days and on chart., H&P Addendum completed by physician on day of procedure. (MUST COMPLETE FOR ALL OUTPATIENTS). 12:44:29 Pre-procedure instructions explained to patient. 12:44:29 Pre-op teaching completed and patient verbalized understanding. 12:44:30 Family in waiting room. 12:44:33 Patient NPO since Breakfast. 12:45:14 Patient allergic to Other allergymetoprolol 12:45:15 Is the patient allergic to Iodine/contrast media? No. 12:45:17 Is patient on blood thinner?No 12:45:28 Bleeding risk <.1%%. 12:45:29 Patient diabetic? Yes. 12:45:30 If diabetic: On Metformin? No 12:45:34 Previous problem with sedation/anesthesia? No ? 12:46:25 Snore? Yes 12:46:26 Sleep apnea? Yes 12:46:26 Deviated septum? No 12:46:27 Opens mouth fully? Yes 12:46:28 Sticks out tongue? Yes 12:46:31 Airway obstruction? Yes COPD 12:46:37 Dentures? Yes IN TIGHT 12:46:51 Risk of Mortality: <.01% 12:47:02 Risk of blood transfusion: <0.1% 12:47:05 Risk of ZANDRA: 0.6 12:51:38 Oxygen 2 l/min etCO2 Nasal cannula was administered by Yu Davis RN; used for procedure; Verbal order read back and verified. 12:51:44 Lidocaine 2% 20ml vial added to field was administered by Ori Crenshaw MD; for local anesthetic; Verbal order read back and verified. 12:51:51 Heparin Flush Bag (1000units/500ml NS) 2 bags added to field was administered by Ori Crenshaw MD; used for procedure; Verbal order read back and verified. 12:51:59 0.9% NaCl 100 ml/hr I.V. was administered by Yu Davis RN; Per physician; Verbal order read back and verified. 12:52:02 Vital chart was started 12:58:47 Pre procedure: right dorsailis pedis pulse 1+ Palpable, but thready & weak; easily obliterated 12:58:49 Modified Devin's test Ulnar > 7 seconds. 12:58:52 Patient pain scale 0/10 ?. 12:59:03 IV patent on arrival in port with 0.9% NaCl at [facility]. 12:59:13 Lab results completed and on chart. 12:59:17 Right Radial & Right Groin area was prepped with chlora-prep and draped in sterile fashion 12:59:19 Alarms reviewed by R. N. 12:59:19 Sharps counted by scrub and verified by R.N. 12:59:23 Baseline sample Acquired. 12:59:26 Rhythm: sinus rhythm 12:59:27 Full Disclosure recording started 12:59:50 Physician arrived 12:59:50 --------ALL STOP TIME OUT------ 12:59:50 Final Timeout: patient, procedure, and site verified with staff and physician. All members of the team are in agreement. 12:59:53 Right Radial & Right Groin site verified by team. 12:59:57 Fire Safety Assessment: A--An alcohol-based skin anteseptic being used preoperatively., C--Open oxygen or nitrous oxide is being used., D--An ESU, laser, or fiber-optic light is being used. 13:00:00 Physical assessment completed. ASA score P 2 - A patient with mild systemic disease as per Ori Crenshaw MD. 13:00:12 1) 90+ Normal kidney functon but urine findings or structural abnormalities or genetic trait point to kidney disease. 13:00:37 Maximum allowable contrast dose (3.7 X eGFR X 0.75)249 ml. 13:00:42 Sedation plan: IV Moderate Sedation Medication:Versed, Fentanyl 13:01:26 Versed 2 mg I.V. was administered by Yu Davis RN; for sedation; Verbal order read back and verified. 13:01:32 Fentanyl 100 mcg I.V. was administered by Yu Davis RN; for sedation; Verbal order read back and verified. 13:04:05 Zero performed for pressure channel P1 13:06:34 Procedure started. 13:06:39 Local anesthetic to right radial artery with Lidocaine 2% by Ori Crenshaw MD.INITIAL ACCESS ONLY 13:07:00 A 6 Fr Short sheath was inserted into the Right Radial artery 13:07:07 Versed 1 mg I.V. was administered by Yu Davis RN; for sedation; Verbal order read back and verified. 13:07:11 Fentanyl 50 mcg I.V. was administered by Yu Davis RN; for sedation; Verbal order read back and verified. 13:07:24 Use device set Radial Dx or PCI 13:07:30 ACIST Syringe (08364) opened to sterile field. 13:07:31 Medline Cath Pack ([id number]) opened to sterile field. 13:07:31 Bag Decanter () opened to sterile field. 13:07:32 ACIST Hand Control (36861) opened to sterile field. 13:07:32 ACIST Manifold (12321) opened to sterile field. 13:07:33 Tegaderm 4 x 4 (1626W) opened to sterile field. 13:07:33 MBrace Wrist Support ([id number]) opened to sterile field. 13:07:38 SHEATH 6FR RAIN (5258404) opened to sterile field. 13:07:39 EMERALD Guide Wire (281-135) opened to sterile field. 13:07:47 A DIAGNOSTIC [place] 110cm 5 Fr catheter (665955) was advanced over the wire and used for Procedure. 13:08:17 Radial Cocktail (Verapamil 2mg/Nitro 400mcg/Heparin 1500units) 1 syringe I.A. was administered by Ori Crenshaw MD; for vasodilation; Verbal order read back and verified. 13:08:33 EF : 55 % 13:08:34 LV hemodynamics recorded. 13:08:48 LCA angiography performed. 13:09:45 RCA angiography performed. 13:09:48 Catheter removed. 13:09:51 ZEPHYR REGULAR TR BAND (964915) opened to sterile field. 13:10:11 Sheath removed intact; hemostasis achieved with Mechanical Compression to the Right Radial artery. 13:10:13 Procedure ended.(Physican Out) 13:10:31 Fluoroscopy time 00.70 minutes. 13:10:34 Flurop Dose total: 268 13:10:34 Fluoroscopy dose: 268 mGy 13:10:47 Dose Area Product 59900 mGy/cm. 13:11:50 Contrast amount:Isovue 370 35ml. 13:11:52 Maximum allowable dose exceeded? No. 13:11:53 Sharps counted by scrub and verified by R.N. 13:12:12 Insertion/operative site no bleeding no hematoma. 13:12:25 Post right radial artery:stable, soft, clean and dry 13:12:26 Post Procedure Pulses reassessed and unchanged 13:12:28 Post-procedure physical assessment completed. ASA score P 2 - A patient with mild systemic disease as per Ori Crenshaw MD. 13:12:30 Post procedure rhythm: unchanged. 13:12:33 Estimated blood loss: 5 ml 13:12:35 Post procedure instruction explained to patient.Patient verbalizes understanding. 13:12:35 Patient needs reinforcement of post procedure teaching. 13:13:16 Letcher band inflated with 10cc of air. 13:13:18 Procedure and supply charges have been captured, reviewed, submitted and are correct. 13:13:20 Procedure Complication : No complications 13:13:23 Vital chart was stopped 13:13:25 Operative report dictated upon procedure completion. 13:13:26 See physician's report for complete and final results. 13:13:27 Report given to Pre/Post Procedure Room. 13:13:29 Patient transfered to Pre/Post Procedure Room with Stretcher. 13:13:31 Procedure ended. 13:13:31 Full Disclosure recording stopped 13:13:46 End room use (Document Last) 13:14:06 End room use (Document Last) 13:14:28 Anselmo Jordan RT(R) was relieved by Yu Davis RN as monitoring person 13:14:28 End room use (Document Last) 13:14:52 End room use (Document Last) Device Usage Item Name Manufacture Quantity Catalog Hospital Part Current Minima l Lot# / Number Charge Number Stock Stock Serial# Code ACIST Acist 1 17934 274950 808501 [id number] 20 Syringe Medical (50923) Systems Inc Medline Medline 1 [id number] 291909 80079 689923 5 Cath Pack ([id number]) Bag Microtek 1 2001S 974986 81561 435294 5 Decanter Medical Inc. () ACIST Hand Acist 1 71547 533620 267883 490528 5 Control Medical (75753) Systems Inc ACIST Acist 1 25112 663453 146169 599610 5 Manifold Medical (80142) Systems Inc Tegaderm 4 3M 1 1626W 402785 413515 749854 5 x 4 (1626W) MBrace Advanced 1 140-0250-00 945887 63086 540748 5 Wrist Vascular Support Dynamics ([id number]) SHEATH 6FR Cardinal 1 0637930 586337 5810692 841662 5 RAIN Health (8977864) EMERALD Cardinal 1 502-013 076409 913158 180339 5 Guide Wire Health (458-298) DIAGNOSTIC Terumo 1 05-1180 627695 516751 721984 5 [place] 110cm 5 Fr catheter (003230) ZEPHYR Cardinal 1 967306 468413 7400207 445652 5 REGULAR TR Health BAND (008039) Signature Audit [place] Stage Time Signature Unsigned Intra-Procedure 10/17/2019 Anselmo Jordan 1:14:06 PM RT(R) Intra-Procedure 10/17/2019 Yu Davis 1:14:52 PM RN; Ori Crenshaw MD Signatures Performing Physician : Signature : Ori Crenshaw MD Date : Time : Monitor : Anselmo Jordan RT Signature : Date : Time : Nurse : Buffie Davis RN Signature : Date : Time : [address] [place] [address]
[2019-10-17] MEDS ORDERED: GABAPENTIN300 MG PO (11:20)
[2019-10-17] MEDS ORDERED: OMEPRAZOLE20 M1 PO (11:21)
[2019-10-17 11:43] VITALS: BP 129/80; Ht 182.9 cm; Wt 95.5 kg
[2019-10-17 12:04] LABS: BASOPHILS 0.1 % (0-2); EOSINOPHILS 0.1 % (0-7); HEMATOCRIT 41.2 % (42.0-54.0); HEMOGLOBIN 12.8 g/dL (13.5-17.5); IMMATURE GRANULOCYTES 0.5 % (0-5); LYMPHOCYTES 5.3 % (15-50); MCH 30.3 pg (26.0-34.0); MCHC 31.1 g/dL (31.0-37.0); MCV 97.4 fL (80.0-100.0); MEAN PLATELET VOLUME 10.1 fL (7.4-10.4); PLATELET COUNT 127 10x3/uL (130-400); RBC 4.23 10x6/uL (4.20-6.10); RDW 14.9 % (11.5-14.5); WBC 12.4 10x3/uL (4.8-10.8)
[2019-10-17 12:27] LABS: ALT (SGPT) 40 U/L (10-68); CALC OSMOLALITY 283 mosm/kg (275-300); CALCIUM 7.5 mg/dL (8.5-10.1); CARBON DIOXIDE 22.3 mmol/L (21.0-32.0); CHLORIDE - SERUM 106 mmol/L (98-107); CHOL - HDL RATIO 2.2 ratio (2.3-4.9); CHOLESTEROL, TOTAL 106 mg/dL (0-200); CREATININE - SERUM 0.9 mg/dL (0.6-1.3); GLUCOSE 218 mg/dL (74-106); HDL CHOLESTEROL 49 mg/dL (32-96); LDL CHOLESTEROL 22 mg/dL (0-100); LDL-HDL RATIO 0.4 ratio (1.5-3.5); POTASSIUM - SERUM 3.7 mmol/L (3.5-5.1); SODIUM 139 mmol/L (136-145); TRIGLYCERIDE 175 mg/dL (30-200); UREA NITROGEN 11 mg/dL (7-18); eGFR NON AFRICAN AMERICAN > 90 mL/min (90-120)
--- NOTE | 2019-10-17 13:25 | NUR ---
REC'D TO ROOM 4 VIA STRETCHER FROM WATERMELON INSPECTOR. MONITORS ESTABLISHED. VSS. SEE STRATEGIC COMMUNICATIONS MANAGER. ALARMS ON AND C/L IN REACH.
--- NOTE | 2019-10-17 13:40 | NUR ---
R WRIST SITE C/D/I, NO S/S BLEEDING OR SWELLING. R HAND WARM, BRISK CAP REFILL NOTED. VSS. C/L IN REACH.
--- NOTE | 2019-10-17 14:10 | NUR ---
R WRIST SITE C/D/I, NO S/S BLEEDING OR HEMATOMA. VSS. HAND WARM WITH BRISK CAP REFILL. VSS. C/L IN REACH.
--- NOTE | 2019-10-17 14:35 | NUR ---
R WRIST SITE C/D/I, NO S/S BLEEDING OR SWELLING. SANDWICH TRAY PROVIDED. C/L IN REACH.
--- NOTE | 2019-10-17 14:45 | NUR ---
5 CC AIR REMOVED FROM Z BAND, NO S/S BLEEDING OR HEMATOMA. VSS. C/L IN REACH.
--- NOTE | 2019-10-17 15:08 | NUR ---
ALL AIR REMOVED FROM Z BAND, NO S/S BLEEDING OR HEMATOMA. R CHEST PORT ACCESS D/C'D INTACT, NO BLEEDING, DSG APPLIED.
--- NOTE | 2019-10-17 15:15 | NUR ---
R WRIST SITE C/D/I, Z BAND OFF AND DSG APPLIED. PT ALLOWED UP TO GET DRESSED.
--- NOTE | 2019-10-17 15:30 | NUR ---
R WRIST IMMOBILIZER ON, DSG C/D/I. PT D/C'D VIA WC TO PRIVATE VEHICLE WITH ALL PAPERWORK AND BELONGINGS. VERBALIZED UNDERSTANDING OF DISCHARGE INSTRUCTIONS.
--- NOTE | 2019-10-18 09:16 | OP ---
PATIENT NAME: THOR JAMES MEDICAL RECORD: [id number] :58 LOCATION:D.CAT ADMISSION DATE: SURGEON: MIKE LANDRY MD DATE OF OPERATION: 10/17/2019 PROCEDURE: Left heart catheterization, selective coronary angiography, right radial approach. CATHETERS: [place] catheter, radial sheath. The procedure was well tolerated. The patient was returned to [place]. Sheath was removed. TR band was placed. FINDINGS: Left ventriculography in 30-degree BELL view; normal wall motion, normal systolic function. CORONARY ANATOMY: LEFT MAIN: Left main is free of disease. LAD: LAD is free of disease in the diagonal system. CIRCUMFLEX: This is a codominant left system, is free of disease. RIGHT CORONARY ARTERY: Again, a large artery, free of disease. IMPRESSION: Normal left ventricular systolic function, normal coronary anatomy. No significant valve pathology. TRANSINT:[id number] Voice Confirmation ID: [id number] DOCUMENT ID: [id number] MIKE LANDRY MD at 0916 CC: [id number] DICTATION DATE: 10/17/19 1321 [employer]UC[facility] [employer] [facility] TEACHER: 10/17/19 1517 DEP CLI 10/17/19 [facility] [address] [place] [address]
== END 2019-10-17 15:30 | disposition home or self-care (01) ==
LOC: D.CATH 11:03
PROVIDERS: ATTEND Internal Medicine Interventional Cardiology
DX: I20.9 Angina pectoris, unspecified (principal); E11.9 Type 2 diabetes mellitus without complications; I10 Essential (primary) hypertension; E78.5 Hyperlipidemia, unspecified; Z79.84 Long term (current) use of oral hypoglycemic drugs

== ENCOUNTER → 2020-09-10 18:53 | Outpatient (CLI) | payer MEDICARE ==
[~2020-09-10 18:53] MED LIST changes: +CBD OIL; +GABAPENTIN300 MG PO; +OMEPRAZOLE20 M1 PO; +OMNICEF300 MG PO
== END | disposition home or self-care (01) ==
LOC: D.LABREF 18:53
PROVIDERS: ATTEND Podiatrist Foot & Ankle Surgery
DX: L03.116 Cellulitis of left lower limb (principal)

== ENCOUNTER → 2020-10-12 21:01 | Outpatient (CLI) | payer MEDICARE | END | disposition home or self-care (01) | LOC: D.LABREF 21:01 | PROVIDERS: ATTEND Podiatrist Foot & Ankle Surgery | DX: L02.612 Cutaneous abscess of left foot (principal) ==

== ENCOUNTER 2020-11-14 10:37 | Inpatient (IN) | payer MEDICARE ==
[~2020-11-14] VITALS: Ht 180.3 cm; Wt 84.5 kg
[2020-11-14] VITALS (20 sets, daily range): BP systolic 85–125; BP diastolic 37–75; BMI 25.8
--- NOTE | ~2020-11-14 | EC ---
PATIENT:THOR JAMES DATE OF SERVICE: 11/14/20 SEX: M MEDICAL RECORD: [id number] DATE OF : 58 LOCATION:D.MS [place] AGE OF PATIENT: 60 ADMISSION DATE: 11/14/20 REFERRING PHYSICIAN: INTERPRETING PHYSICIAN: KAIDEN BARKER M.D. ECHOCARDIOGRAM REPORT ECHO CHARGES 4 ECHO COMPLETE Date: 11/18/20 CLINICAL DIAGNOSIS: AFIB ECHOCARDIOGRAPHIC MEASUREMENTS (adult normal given) AC root (d.<3.7cm) 3.3 cm LV Septum d (<1.2 cm> 0.8 cm Valve Excursion 1.9 cm LV Septum (systole) 1.2 cm Left Atria (s.<4.0cm> 3.9 cm LVPW d(<1.2cm) 0.7 cm RV (d.<2.3cm) 3.1 cm LVPW (sytole) 1.1 cm LV diastole(<5.6CM) 5.6 cm MV E-F(>70mm/sec) cm LV systole 4.2 cm LVOT Diameter 1.8 cm MV exc.(>10mm) 1.7 cm Est.ejection fraction (50-75%) % DOPPLER: LVIT cm/sec A 62 cm/sec E 84 cm/sec LA cm/sec RVSP 25 mmHg LVOT 84 cm/sec AOP1/2T m/s Asc. Ao 116 cm/sec RVOT 70 cm/sec RA cm/sec PA 87 cm/sec AV Gradient Peak 5.4 mmHg AV Mean 2.9 mmHg AV Area 1.8 cm MV Gradient Peak 5.9 mmHg MV Mean 2.2 mmHg MV Area cm COMMENTS: Cash Register Mechanic: Miguel YU Control Board Operator: 2 Dr. Barker TAPE# Pericardial Effusion N INDICATION: Atrial fibrillation LEFT VENTRICLE: Normal LV size and function ejection fraction 55% MITRAL VALVE: Mild regurgitation but no prolapse LEFT ATRIUM: Normal size AORTIC VALVE: No stenosis or regurgitation ECHOCARDIOGRAM REPORT [id number] THOR JAMES RIGHT VENTRICLE: Normal size and function TRICUSPID VALVE: No regurgitation RIGHT ATRIUM: Normal size PERICARDIUM: No effusion seen IMPRESSION: #1 normal LV size and function ejection fraction 55% #2 mild mitral regurgitation at 0729 11/24/2019 corrected account number KAIDEN BARKER M.D. CC: [id number] DICTATION DATE: 11/19/20728 CONTINUING EDUCATION SPECIALIST: JERMAINE 11/23/20 1413 ADM IN [place] [id number] [place] [id number]
[2020-11-14] MEDS ORDERED: CIPRO500 MG PO (11:07)
[2020-11-14 11:14] LABS: BASOPHILS 0.2 % (0-2); EOSINOPHILS 0.4 % (0-7); HEMATOCRIT 39.8 % (42.0-54.0); HEMOGLOBIN 12.8 g/dL (13.5-17.5); IMMATURE GRANULOCYTES 2.5 % (0-5); MCH 25.5 pg (26.0-34.0); MCHC 32.2 g/dL (31.0-37.0); MCV 79.4 fL (80.0-100.0); MEAN PLATELET VOLUME 10.8 fL (7.4-10.4); MONOCYTES 4.7 % (2-11); NEUTROPHIL ABS# 15.68 10x3/uL (1.78-5.38); NEUTROPHILS 86.2 % (40-80); PLATELET COUNT 326 10x3/uL (130-400); RBC 5.01 10x6/uL (4.20-6.10); RDW 15.4 % (11.5-14.5); WBC 18.2 10x3/uL (4.8-10.8)
[2020-11-14 11:17] LABS: APTT 32.4 SECONDS (22.8-39.4); INR 1.54 (0.85-1.17); PROTIME 17.1 SECONDS (11.6-15.0)
[2020-11-14 11:40] LABS: ALBUMIN 1.8 g/dL (3.4-5.0); ALKALINE PHOSPHATASE 121 U/L (30-120); ALT (SGPT) 17 U/L (10-68); BILIRUBIN - TOTAL 0.98 mg/dL (0.2-1.3); CALC OSMOLALITY 285 mosm/kg (275-300); CALCIUM 10.9 mg/dL (8.5-10.1); CHLORIDE - SERUM 96 mmol/L (98-107); CKMB 0.3 U/L (0.0-3.6); CREATINE KINASE 16 UL (21-232); CREATININE - SERUM 1.7 mg/dL (0.6-1.3); MAGNESIUM - SERUM 1.3 mg/dL (1.8-2.4); POTASSIUM - SERUM 3.1 mmol/L (3.5-5.1); PROTEIN - SERUM 6.8 g/dL (6.4-8.2); SODIUM 133 mmol/L (136-145); TROPONIN-I < 0.017 ng/mL (0.000-0.060); UREA NITROGEN 19 mg/dL (7-18); eGFR NON AFRICAN AMERICAN 44 mL/min (90-120)
[2020-11-14 11:42] LABS: GLUCOSE 428 mg/dL (74-106)
--- NOTE | 2020-11-14 12:50 | NUR ---
2ND LITER OF FLUID STARTED AT THIS TIME.
--- NOTE | 2020-11-14 13:00 | NUR ---
MAP 69
--- NOTE | 2020-11-14 14:00 | NUR ---
MAP 75
--- NOTE | 2020-11-14 14:23 | NUR ---
3RD LITER NS WAS STARTED AT THIS TIME TO COMPLETE SEPSIS FLUID BOLUS.
--- NOTE | 2020-11-14 14:34 | NUR ---
URINE COLLECTED AND SENT TO LAB.
--- NOTE | 2020-11-14 14:45 | NUR ---
MAP 70
[2020-11-14 14:46] LABS: BILIRUBIN NEGATIVE (NEGATIVE); KETONE SMALL mg/dL (NEGATIVE); NITRITE NEGATIVE (NEGATIVE); UROBILINOGEN NORMAL mg/dL (< 2)
[2020-11-14 14:55] LABS: UDS - AMPHET NEGATIVE QUAL (NEGATIVE); UDS - BARB NEGATIVE QUAL (NEGATIVE); UDS - BENZO NEGATIVE QUAL (NEGATIVE); UDS - COCAINE NEGATIVE QUAL (NEGATIVE); UDS - OPIATE POSITIVE QUAL (NEGATIVE); UDS - PCP NEGATIVE QUAL (NEGATIVE); UDS - THC NEGATIVE QUAL (NEGATIVE)
--- NOTE | 2020-11-14 16:59 | NUR ---
1630 PT RECIEVED FROM THE ED.. SEE ASSESMENT FOR PATIENT FINDINGS.. LEFT LEG IS UNDRESSED AND ASSESED REDRESSED WITH 4X4 ADAPTIC AND ROLLED GAUZE.. MEPLEX DRESSINGH PLACED ON BUTTOCKS FOR REDNESS... PT IS AWAKE STATES PAIN A 10 HYDROCODONE GIVEN... IV FLUID HUNG AT 30CC/HR AND PIGGYBACK ANTIBIOTIC STARTED.. REFUSES DIET TRAY GLIPIZIDE IS HELD..
--- NOTE | 2020-11-14 18:08 | NUR ---
1730 DR GOMES IN TO SEE PATIENT.. DIET ERVED TO PATIENT.. STATES SOME PAIN RELIEF FROM HYDROCODONE.. BS 406 COVERED WITH INSULIN 1814 25 % DIET CONSUMED
--- NOTE | 2020-11-14 20:15 | NUR ---
REC'D REPORT AND ASSUMED CARE. INITIAL ASSESSMENT COMPLETED AND RECORDED PER FLOW SHEET. RIGHT SIDE INFUSAPORT PATENT WITH IV INFUSING WITHOUT DIFFICULTY. DENIES NEEDS
--- NOTE | 2020-11-14 23:15 | NUR ---
REC'D NORCO 5MG AT 2110 FOR PAIN OF 8. VISITOR IN AT BEDSIDE. WILL MONITOR FOR EFFECT.
[2020-11-15] VITALS (24 sets, daily range): BP systolic 86–127; BP diastolic 51–89
--- NOTE | 2020-11-15 01:00 | NUR ---
FSBS @ 0334 WAS 330, COVERED WITH 8 UNITS OF HUMALOG PER S/S
--- NOTE | 2020-11-15 04:00 | NUR ---
FSBS 220 COVERED WITH 4 UNITS OF HUMALOG. LYING WITHOUT COMPLAINT. CONT TO MONITOR. VSS. WILL CONT TO MONITOR.
--- NOTE | 2020-11-15 06:45 | NUR ---
DR. BECERRA IN TO SEE PT LAST NIGHT, AND AGAIN THIS MORNING. IS PLANNING ON AMPUTATION ON MONDAY OR MONDAY. HAD BEEN GIVEN ANOTHER [employer]-IT 5 @ 1592. REPORTS RELIEF AT THIS TIME
[2020-11-15 08:16] LABS: BASOPHILS 0 % (0-2); EOSINOPHILS 0.6 % (0-7); HEMATOCRIT 32.2 % (42.0-54.0); IMMATURE GRANULOCYTES 0.4 % (0-5); LYMPHOCYTES 8.1 % (15-50); MCH 25.1 pg (26.0-34.0); MCHC 31.7 g/dL (31.0-37.0); MCV 79.3 fL (80.0-100.0); MEAN PLATELET VOLUME 10.4 fL (7.4-10.4); MONOCYTES 4.9 % (2-11); NEUTROPHIL ABS# 9.56 10x3/uL (1.78-5.38); RBC 4.06 10x6/uL (4.20-6.10); RDW 15.3 % (11.5-14.5)
[2020-11-15 08:17] LABS: HEMOGLOBIN 10.2 g/dL (13.5-17.5); PLATELET COUNT 244 10x3/uL (130-400); WBC 11.1 10x3/uL (4.8-10.8)
[2020-11-15 08:30] LABS: ANION GAP 12.5 mmol/L (8-16); BILIRUBIN - TOTAL 0.35 mg/dL (0.2-1.3); CARBON DIOXIDE 25.5 mmol/L (21.0-32.0); CREATININE - SERUM 1.1 mg/dL (0.6-1.3); PROTEIN - SERUM 5.6 g/dL (6.4-8.2)
[2020-11-15 08:34] LABS: ALBUMIN 1.4 g/dL (3.4-5.0)
--- NOTE | 2020-11-15 14:10 | NUR ---
0700 BEDSIDE SHIFT REPORT RECIEVED AND CARE ASSUMED OF PATIENT.. SEE FLOW SHEET FOR SHIFT ASSESMENT FINDINGS.. 0900 MEDS GIVEN FSBS DONE AND PT FEEDING SELF BRESKFAST.. 1130 COMPLETE CHG BATH WITH LINEN CHANGE DONE .. DRESSING CHANGED ON LEFT LEG ..AM POTASIUM 3.0 KCL PO GIVEN PER PROTOCOL 1200 FSBS DONE AND LUNCH SERVED FEEDING SELF.. 1330 AT BEDSIDE .. LAST KCL GIVEN AND LAB ORDERD FOR 1730
--- NOTE | 2020-11-15 17:53 | NUR ---
1600 PT GOT SELF OOB TO BSC AND VOIDED PUT SELF BACK TO BED... NO HAVING EXTREME PAIN IN FOOT AND LOWER LEG.... DRESSING IS SOILED WITH DRAINAGE... 1630 BS DONE NO INSULIN .. PATIET IS SHAKING STATES HE DOES THIS AT HOME... 1700 DIET SERVED AND BLANKETS ADDED TO BED I AND O DONE.. ASSISTED WITH MEAL FEW BITES TAKEN... 1730 LAB IN TO DRAW POTASIUM.. UNABLE TO DRAW FROM INFUSAPORT SITE PERIFERAL DRAW... HYDROCODONE GIVEN FOR PAIN.. 1800 STATES THAT PAIN IS BETTER
--- NOTE | 2020-11-15 18:10 | NUR ---
1810 POTASIUM LEVEL 2.8 PER LAB ELECTROLYTE PROTOCOL USED POTASIUM IV INITIATED AT THIS TIME..
--- NOTE | 2020-11-15 19:00 | NUR ---
BEDSIDE REPORT COMPLETED WITH OFF GOING NURSE. PT IS LAYING IN BED AT THIS TIME. NO S/S OF DISTRESS NOTED. NO NEEDS VOICED AT THIS TIME. SHIFT ASSESSMENT COMPLETED, SEE FLOWSHEET FOR DETAILS. WILL CONTINUE TO MONITOR.
[2020-11-16] VITALS (33 sets, daily range): BP systolic 82–135; BP diastolic 51–83; BMI 26.2
[2020-11-16 05:47] LABS: BASOPHILS 0 % (0-2); EOSINOPHILS 0.7 % (0-7); HEMATOCRIT 33.3 % (42.0-54.0); HEMOGLOBIN 10.6 g/dL (13.5-17.5); IMMATURE GRANULOCYTES 0.6 % (0-5); LYMPHOCYTE ABS# 0.94 10x3/uL (1.32-3.57); LYMPHOCYTES 8.7 % (15-50); MCH 25.3 pg (26.0-34.0); MCHC 31.8 g/dL (31.0-37.0); MCV 79.5 fL (80.0-100.0); MEAN PLATELET VOLUME 10.1 fL (7.4-10.4); MONOCYTES 6.2 % (2-11); NEUTROPHIL ABS# 9.03 10x3/uL (1.78-5.38); NEUTROPHILS 83.8 % (40-80); PLATELET COUNT 241 10x3/uL (130-400); RBC 4.19 10x6/uL (4.20-6.10); RDW 15.6 % (11.5-14.5); WBC 10.8 10x3/uL (4.8-10.8)
[2020-11-16 06:15] LABS: ALBUMIN 1.3 g/dL (3.4-5.0); BILIRUBIN - TOTAL 0.42 mg/dL (0.2-1.3); CALCIUM 9.7 mg/dL (8.5-10.1); CARBON DIOXIDE 22.8 mmol/L (21.0-32.0); PROTEIN - SERUM 5.4 g/dL (6.4-8.2)
[2020-11-16 06:16] LABS: CREATININE - SERUM 1.4 mg/dL (0.6-1.3); POTASSIUM - SERUM 3.8 mmol/L (3.5-5.1)
--- NOTE | 2020-11-16 18:56 | NUR ---
PT UNABLE TO WEAR SCDS R/T SORES ON BILAT LEGS. LOVENOX UNABLE TO BE GIVEN R/T SURGERY IN AM.
[2020-11-17] VITALS (39 sets, daily range): BP systolic 88–157; BP diastolic 57–97; Ht 180.3 cm; Wt 84.5 kg
--- NOTE | 2020-11-17 05:49 | NUR ---
CHG bath given.
--- NOTE | 2020-11-17 10:09 | NUR ---
0700 report recieved and care assumed of the patient.. see flow sheet for the shift assesment findings.. 0715 dr stephens in to see patient.. update is given and info regarding the time of operation recieved.. 08 dr gonzalez in to see patient.. update given.. 829 in to see patient.. update given.. she spoke with dr gonzalez and dr durbin predisone ... a exterminator helper termite med for patient..
[2020-11-17 11:46] LABS: CREATININE - SERUM 1.5 mg/dL (0.6-1.3); VANCOMYCIN - TROUGH 20.9 ug/mL (10.0-20.0)
--- NOTE | 2020-11-17 13:42 | NUR ---
1100 or called and pre op patient.. called and consent forms signed by her at this time.. meds given..for pre op 1200 continue to rest with eyes closed family at the bedside.. 1315 dr stephens in to see patient.. spoke with the at bedside...
--- NOTE | 2020-11-17 16:58 | NUR ---
1415 TRANSPORTED TO THE OR VIA BED BY OR STAFF..
--- NOTE | 2020-11-17 21:00 | NUR ---
PT BACK FROM OR WITH PACU/ANES. AT BEDSIDE. ICU MONITORING APPLIED. PT AWAKE AND ALERT, ANSWERS QUESTIONS APPROPRIATELY, MOMENTS OF CONFUSION PRESENT. RESPIRATIONS UNLABORED. WOUND VAC TO L BKA SITE, KNEE IMMOBILIZER PRESENT. NO C/O PAIN AT THIS TIME. VSS, CPOC.
--- NOTE | 2020-11-17 21:09 | NUR ---
FAMILY AT BEDSIDE, UPDATE PROVIDED, NO QUESTIONS AT THIS TIME.
--- NOTE | 2020-11-17 22:00 | NUR ---
PT BECOMES VERBALLY DISRUPTIVE, VERY CONFUSED AND AGITATED, ATTEMPTING TO GET OUT OF BED. REORIENTATION ATTEMPTED WITH NO CHANGE IN BEHAVIOR. SIVAN MAY, NOTIFIED, NEW ORDERS REC'D. PT FAMILY UPDATED-NO QUESTIONS AT THIS TIME. VSS, WOUND VAC IN PLACE AND FUNCTIONING PROPERLY. BED ALARM ON, RESTRAINTS IN PLACE, ROOM VISIBLE FROM NURSES STATION. WILL CONTINUE TO MONITOR.
[2020-11-18] VITALS (23 sets, daily range): BP systolic 102–155; BP diastolic 56–95
[2020-11-18 04:43] LABS: BASOPHILS 0 % (0-2); EOSINOPHILS 0.1 % (0-7); HEMATOCRIT 31.3 % (42.0-54.0); HEMOGLOBIN 9.8 g/dL (13.5-17.5); IMMATURE GRANULOCYTES 0.5 % (0-5); LYMPHOCYTE ABS# 0.85 10x3/uL (1.32-3.57); LYMPHOCYTES 7.2 % (15-50); MCH 25.4 pg (26.0-34.0); MCHC 31.3 g/dL (31.0-37.0); MCV 81.1 fL (80.0-100.0); MEAN PLATELET VOLUME 10.7 fL (7.4-10.4); MONOCYTES 4.3 % (2-11); NEUTROPHILS 87.9 % (40-80); PLATELET COUNT 245 10x3/uL (130-400); RBC 3.86 10x6/uL (4.20-6.10); RDW 16.1 % (11.5-14.5); WBC 11.8 10x3/uL (4.8-10.8)
[2020-11-18 04:57] LABS: ALBUMIN 1.3 g/dL (3.4-5.0); ANION GAP 17.3 mmol/L (8-16); BILIRUBIN - TOTAL 0.22 mg/dL (0.2-1.3); CARBON DIOXIDE 20.3 mmol/L (21.0-32.0); CREATININE - SERUM 1.8 mg/dL (0.6-1.3); POTASSIUM - SERUM 3.6 mmol/L (3.5-5.1); PROTEIN - SERUM 5.7 g/dL (6.4-8.2)
--- NOTE | 2020-11-18 10:08 | NUR ---
Nutrition follow-up: Pt POD1 of left BKA Diet order: consistent CHO PO intake poor at this time Labs reviewed Wt: 186# Will continue to provide food choices and honor food preferences Follow-up: 11/19/20
--- NOTE | 2020-11-18 10:27 | OP ---
PATIENT NAME: THOR JAMES MEDICAL RECORD: [id number] :58 LOCATION:.[facility] D.2305 ADMISSION DATE:11/14/20 SURGEON: RUBEN BECERRA DO DATE OF OPERATION: 11/17/2020 PROCEDURE PERFORMED: Left below-knee amputation. PREOPERATIVE DIAGNOSIS: Left foot and ankle infection and osteomyelitis. POSTOPERATIVE DIAGNOSIS: Left foot and ankle infection and osteomyelitis. INDICATIONS: Mr. James is a 60-year-old male who has had left foot problems for quite some time. He had several I and Ds to the left foot and had an MRI showing osteo. He had purulent fluid draining out of the lateral side of his foot for a few days and went septic and then went to the ICU. He was told that we need to do a below-knee amputation. He was okay with that and he is aware of the risks of this including further infection, bleeding, damage to nerves or vessels, need for further surgery, stump site pain, phantom pain, continued pain, need for above-knee amputation, blood loss, and even and he signed the consent. SURGEON: Ruben Becerra DO DESCRIPTION OF PROCEDURE: The patient was taken to the operative suite, laid in supine position under general anesthetic. After that, he was sedated and LMA was placed. He did receive a block. The left lower extremity was prepped and draped in sterile fashion. A timeout was performed and everyone was in agreement with correct side, site, patient and procedure. I then began by marking out the incision doing a fishmouth incision on the left lower extremity approximately 12 cm from the joint line, then creating a posterior flap. I then went through the skin with a 10 blade scalpel and then plasma blade and tied off any vessels. I went and then cut through the tibia and the fibula a centimeter proximal to that and removed the lower leg and tying off the vessels. The tourniquet was used and I did exsanguinate the left lower extremity and the tourniquet was inflated to 350 mmHg prior to me cutting the skin and it was up for 13 minutes. We then removed the leg. Once I cut through the tibia, quite a copious amount of purulent fluid had come out of the posterior compartment of the leg. After I removed the lower leg, I then debrided with a rongeur and Bovie any devitalized tissue and irrigated with approximately 2 liters normal saline. I then made a beveled cut on the tibia and placed two drill holes in the tibia and did a myodesis of the posterior superficial compartment with the gastroc fascia in a Dino-Devin type stitch and tied it to the tibia with #2 Ethibond. I then closed the fascia with a [id number]-[id number] #2 Ethibond. Eulogio Andrew, nca certified concierge then finished by closing the fascia with #1 Vicryl in a [id number] fashion and then skin with 2-0 Vicryl in inverted interrupted fashion and 2-0 Prolene in a modified Donati in a horizontal mattress fashion. We then put Prevena VAC on the stump and held suction well. He was then awakened and taken to recovery in stable condition. BLOOD LOSS: Minimal. COMPLICATIONS: None. TRANSINT:[id number] Voice Confirmation ID: [id number] DOCUMENT ID: [id number] OPERATIVE REPORT [id number] THOR JAMES,RUBEN Mackenzie DO at 1027 CC: [id number] DICTATION DATE: 11/17/202013 DIRECTOR OF MANAGED CARE: 11/18/20 0327 ADM IN [facility] [address] [id number]
--- NOTE | 2020-11-18 12:58 | NUR ---
I have reviewed this patient and I concur with the Shift Assessment completed by the Licensed Practical Nurse today this shift.
--- NOTE | 2020-11-19 03:40 | NUR ---
PATIENT HAS BROTHER AT BEDSIDE, PATIENT HAD PAIN MANAGED WITH THE PRESCRIBED PAIN MEDICATION. HE IS CURRENTLY RESTING IN BED WITH HIS EYES CLOSED.
[2020-11-19 04:00] VITALS: BP 118/68
[2020-11-19 06:36] LABS: BASOPHILS 0 % (0-2); EOSINOPHILS 0.4 % (0-7); HEMATOCRIT 36.8 % (42.0-54.0); HEMOGLOBIN 11.7 g/dL (13.5-17.5); IMMATURE GRANULOCYTES 0.4 % (0-5); LYMPHOCYTES 13.2 % (15-50); MCH 25.3 pg (26.0-34.0); MCHC 31.8 g/dL (31.0-37.0); MCV 79.5 fL (80.0-100.0); MEAN PLATELET VOLUME 9.8 fL (7.4-10.4); MONOCYTES 6.6 % (2-11); NEUTROPHIL ABS# 5.42 10x3/uL (1.78-5.38); NEUTROPHILS 79.4 % (40-80); RBC 4.63 10x6/uL (4.20-6.10); RDW 16.4 % (11.5-14.5)
[2020-11-19 06:40] LABS: PLATELET COUNT 189 10x3/uL (130-400); WBC 6.8 10x3/uL (4.8-10.8)
[2020-11-19 07:09] LABS: ALBUMIN 1.4 g/dL (3.4-5.0); BILIRUBIN - TOTAL 0.27 mg/dL (0.2-1.3); CALCIUM 7.2 mg/dL (8.5-10.1); CREATININE - SERUM 1.8 mg/dL (0.6-1.3); PROTEIN - SERUM 4.9 g/dL (6.4-8.2)
[2020-11-19 07:13] LABS: ANION GAP 16.9 mmol/L (8-16)
[2020-11-19 07:15] LABS: POTASSIUM - SERUM 2.9 mmol/L (3.5-5.1)
--- NOTE | 2020-11-19 07:16 | NUR ---
CRITICAL LAB RESULT OF K+ 2.9 RECD FROM PEREZ IN LAB. SHIFT NURSE NOTIFIED OF CRITICAL RESULT AND CRITICAL LAB DOCUMENT PREPARED.
--- NOTE | 2020-11-19 07:30 | NUR ---
REC'D IN BED AWAKE AND ALERT TO NAME. RESP EVEN AND ULABORED WITH NO DISTRESS NOTED. CAN EXPRESS NEEDS AND WANTS. NO C/O NOTED OR VOICD. ASSISTANCE GIVEN TIH ALL ADLS. TURN AND REPOSITIONED Q 2 HRA AND PRN. ASSESSMENT COMPLETED. WOUND VAC NOTED TO LEFT STUMP. C/L IN REACH AT BEDSIDE.
[2020-11-19 08:56] VITALS: BP 129/75
--- NOTE | 2020-11-19 10:00 | NUR ---
Nutrition follow-up: Diet advanced to consistent CHO PO intake 100% of dinner last night POD 2of left BKA labs reviewed Wt: 186# PO intake improving RDN will follow-up on pts progress toward nutrition goals: 11/23/20
[2020-11-19 12:58] VITALS: BP 133/72
--- NOTE | 2020-11-19 13:02 | NUR ---
I have reviewed this patient and I concur with the Shift Assessment completed by the Licensed Practical Nurse today this shift.
--- NOTE | 2020-11-19 13:52 | NUR ---
REHAB PRESCREEN RECEIVED, AND WE ARE WAITING COMPLETION OF THERAPY EVALUATIONS AND THEN 'S DECISION TO PROCEED WITH INPATIENT OR NOT. WE WILL CONTINUE TO FOLLOW. THANK YOU FOR THIS REFERRAL. DOMINIQUE BLANK RN CLINICAL LIAISON, INPATIENT REHAB.
[2020-11-19 16:55] VITALS: BP 108/75
[2020-11-19 20:00] VITALS: BP 122/78
[2020-11-20] VITALS: BP 122/72; BP 129/69
[2020-11-20 08:09] LABS: BASOPHILS 0 % (0-2); EOSINOPHILS 0.4 % (0-7); HEMATOCRIT 30.8 % (42.0-54.0); HEMOGLOBIN 9.7 g/dL (13.5-17.5); IMMATURE GRANULOCYTES 0.5 % (0-5); LYMPHOCYTE ABS# 1.31 10x3/uL (1.32-3.57); MCHC 31.5 g/dL (31.0-37.0); MCV 79.4 fL (80.0-100.0); MEAN PLATELET VOLUME 9.9 fL (7.4-10.4); MONOCYTES 7.4 % (2-11); NEUTROPHIL ABS# 7.25 10x3/uL (1.78-5.38); NEUTROPHILS 77.7 % (40-80); PLATELET COUNT 213 10x3/uL (130-400); RBC 3.88 10x6/uL (4.20-6.10); RDW 16.2 % (11.5-14.5)
[2020-11-20 08:19] LABS: WBC 9.3 10x3/uL (4.8-10.8)
[2020-11-20 08:27] LABS: ALBUMIN 1.6 g/dL (3.4-5.0); ANION GAP 18.6 mmol/L (8-16); BILIRUBIN - TOTAL 0.43 mg/dL (0.2-1.3); CARBON DIOXIDE 16.5 mmol/L (21.0-32.0); CREATININE - SERUM 1.7 mg/dL (0.6-1.3); POTASSIUM - SERUM 3.1 mmol/L (3.5-5.1); VANCOMYCIN - RANDOM 18.1 ug/mL (10.0-20.0)
[2020-11-20 08:39] LABS: CALCIUM 6.9 mg/dL (8.5-10.1)
[2020-11-20 09:31] VITALS: BP 132/72
--- NOTE | 2020-11-20 13:15 | NUR ---
OT NOTE: PT PERFORMED VERY WELL TODAY. SUPINE TO SIT WITH MIN ASSIST; ABLE TO WASH FACE AND HANDS WHILE SITTING ON EOB; ABLE TO OBTAIN ITEMS FROM TRAY ; UE AROM EXS; SIT TO STAND WITH MIN ASSIST X 2 AND USE OF WALKER. STANDING TOLERANCE OF APPROX 4 MIN X 2 TRIALS. UPON 3RD TRIAL, PT TOOK STEPS TO CHAIR WITH WALKER AND MIN ASSIST X 2; PT SET UP IN CHAIR FOR COMFORT. PT VERY MOTIVATED TO IMPROVE..RECOMMEND IP REHAB ELIAS HDZ, OTR/L [phone]
[2020-11-20 13:19] VITALS: BP 119/75
--- NOTE | 2020-11-20 16:15 | NUR ---
CLINICAL INFORMATION HAS BEEN SENT TO MARCELO VÁZQUEZ RN CM AT [facility]. WE WILL WAIT FOR DETERMINATION FOR INPATIENT REHAB. PATIENT LOOKS LIKE A GOOD CANDIDATE FOR US IF HIS INSURANCE AGREES. WE WILL CONTINUE TO FOLLOW. THANK YOU FOR THIS REFERRAL. DOMINIQUE BLANK RN CLINICAL LIAISON, INPATIENT REHAB.
[2020-11-20 17:25] VITALS: BP 126/73
--- NOTE | 2020-11-20 18:01 | NUR ---
I have reviewed this patient and I concur with the Shift Assessment completed by the Licensed Practical Nurse today this shift.
--- NOTE | 2020-11-20 23:01 | NUR ---
PATIENT CONITNUES TO HAVE DIARRHEA. BG 71, BEDTIME SNACK PROVIDED. DENIES PAIN AT THIS TIME. WOUND VAC IN PLACE, FUNCTIONING.
--- NOTE | 2020-11-21 07:05 | NUR ---
PATIENT CONTINUES TO HAVE MULTIPLE EPISODES OF DIARRHEA EACH SHIFT. SKIN PROTECTANT APPLIES TO BUTTOCKS TO IMPROVE EXCORIATION.
--- NOTE | 2020-11-21 07:30 | NUR ---
AWAKE AND ALERT. ORIENTED X3. NO C/O AT THIS TIME. LUNGS ARE CLEAR BILATERALLY, NO COUGH NOTED. SKIN IS INTACT WITHOUT REDNESS EXCEPT INCISION TO LEFT BKA WHICH HAS A WOUND VAC IN PLACE WITH SCANT DRAINAGE NOTED. RIGHT PORT NOTED TO LOWER RIGHT CHEST WALL PATENT WITHOUT REDNESS AT INSERTION SITE. DENIES NEEDS.
[2020-11-21 08:17] LABS: ALBUMIN 1.5 g/dL (3.4-5.0); BILIRUBIN - TOTAL 0.49 mg/dL (0.2-1.3); CARBON DIOXIDE 15.4 mmol/L (21.0-32.0); CREATININE - SERUM 1.5 mg/dL (0.6-1.3); MAGNESIUM - SERUM 1.5 mg/dL (1.8-2.4); PROTEIN - SERUM 5.3 g/dL (6.4-8.2)
[2020-11-21 08:18] LABS: ANION GAP 19.4 mmol/L (8-16)
[2020-11-21 08:20] LABS: CALCIUM 6.7 mg/dL (8.5-10.1); POTASSIUM - SERUM 2.8 mmol/L (3.5-5.1)
[2020-11-21 08:22] VITALS: BP 132/70
[2020-11-21 08:30] LABS: BASOPHILS 0.1 % (0-2); EOSINOPHILS 0.7 % (0-7); HEMATOCRIT 29.9 % (42.0-54.0); HEMOGLOBIN 9.1 g/dL (13.5-17.5); IMMATURE GRANULOCYTES 0.8 % (0-5); LYMPHOCYTE ABS# 1.33 10x3/uL (1.32-3.57); LYMPHOCYTES 15.7 % (15-50); MCH 24.9 pg (26.0-34.0); MCHC 30.4 g/dL (31.0-37.0); MEAN PLATELET VOLUME 10.4 fL (7.4-10.4); MONOCYTES 7.3 % (2-11); NEUTROPHIL ABS# 6.36 10x3/uL (1.78-5.38); NEUTROPHILS 75.4 % (40-80); PLATELET COUNT 207 10x3/uL (130-400); RBC 3.66 10x6/uL (4.20-6.10); RDW 16.4 % (11.5-14.5); WBC 8.5 10x3/uL (4.8-10.8)
[2020-11-21 08:35] LABS: MCV 81.7 fL (80.0-100.0)
--- NOTE | 2020-11-21 09:00 | NUR ---
ASSISTED WITH BREAKFAST PER STAFF. UP TO CHIAR AT BEDSIDE PER PT. DID WELL WITH MIN ASSIST. USED BSC FOR LOOSE WATERY STOOL. SKIN CARE PER STAFF.
--- NOTE | 2020-11-21 12:00 | NUR ---
FSBS 142. NO COVERAGE REQUIRED. FEEDS SELF. NO ASSIST NECESSARY. BACK TO BED PER STAFF.
[2020-11-21 12:20] VITALS: BP 98/49
--- NOTE | 2020-11-21 14:00 | NUR ---
RESTING QUIETLY WITH EYES CLOSED. NO NEEDS NOTED.
[2020-11-21 16:49] VITALS: BP 125/81
--- NOTE | 2020-11-21 18:15 | NUR ---
ATE ALL OF SUPPER PER SELF. DENIES NEEDS. UP TO BSC WITH ONE PERSON MIN ASSIST. NO CHANGES NOTED.
[2020-11-22 00:08] LABS: MAGNESIUM - SERUM 2.5 mg/dL (1.8-2.4); POTASSIUM - SERUM 3.7 mmol/L (3.5-5.1)
[2020-11-22 00:40] VITALS: BP 125/70
--- NOTE | 2020-11-22 03:45 | NUR ---
ASSUMED CARE OF PT AFTER REPORT/ROUNDS. PT A&OX4. VERBALIZED THAT PAIN IS TOLERABLE. WOUND VAC FUNCTIONING APPROPRIATELY AND PT REMAINS RESTING IN BED AT THIS TIME.
--- NOTE | 2020-11-22 04:02 | NUR ---
PT BG CHECKED AND INITIALLY 55. RECHECKED AND 67. 15G OF PROTEIN GIVEN AND WILL RECHECK IN 15 MINUTES.
--- NOTE | 2020-11-22 04:47 | NUR ---
pt's bg now increased to 125 after IV dextrose admin
[2020-11-22 07:56] LABS: BASOPHILS 0.1 % (0-2); EOSINOPHILS 0.5 % (0-7); HEMATOCRIT 32.7 % (42.0-54.0); IMMATURE GRANULOCYTES 0.8 % (0-5); LYMPHOCYTE ABS# 1.75 10x3/uL (1.32-3.57); LYMPHOCYTES 14.6 % (15-50); MCH 24.6 pg (26.0-34.0); MCHC 30.6 g/dL (31.0-37.0); MCV 80.3 fL (80.0-100.0); MEAN PLATELET VOLUME 9.7 fL (7.4-10.4); MONOCYTES 6.3 % (2-11); NEUTROPHILS 77.7 % (40-80); RBC 4.07 10x6/uL (4.20-6.10); RDW 16.3 % (11.5-14.5)
[2020-11-22 07:57] LABS: PLATELET COUNT 250 10x3/uL (130-400)
[2020-11-22 08:09] LABS: BILIRUBIN - TOTAL 0.46 mg/dL (0.2-1.3); CALCIUM 7.3 mg/dL (8.5-10.1); CREATININE - SERUM 1.8 mg/dL (0.6-1.3); MAGNESIUM - SERUM 2.3 mg/dL (1.8-2.4); POTASSIUM - SERUM 3.5 mmol/L (3.5-5.1); PROTEIN - SERUM 5.5 g/dL (6.4-8.2)
[2020-11-22 08:13] LABS: ALBUMIN 1.9 g/dL (3.4-5.0); ANION GAP 16.1 mmol/L (8-16); CARBON DIOXIDE 19.4 mmol/L (21.0-32.0)
[2020-11-22 08:14] VITALS: BP 132/81
--- NOTE | 2020-11-22 08:20 | NUR ---
AWAKE AND ALERT. ORIENTED X3. UP TO BSC WITH ONE PERSON MIN ASSIST. HAD SMALL LOOSE WATERY STOOL. SKIN CARE PER STAFF. LUNGS HAVE CRACKLES IN LL THAT CLEAR WITH COUGH. ENCOURAGED TO USE IS INSTRUCTED. SKIN IS INTACT WITHOUT REDNESS EXCEPT LEFT BKA WHICH HAS A WOUND VAC IN PLACE WITH SCANT DRAINAGE NOTED. RIGHT PORT PATENT WITHOUT REDNESS AT INSERTION SITE. DENIES NEEDS.
--- NOTE | 2020-11-22 10:00 | NUR ---
ATE ALL OF BREAKFAST WITH SOME SET UP ASSIST. TOOK AM MEDS WITHOUT DIFFICULTY. DENIES NEEDS.
--- NOTE | 2020-11-22 10:30 | NUR ---
UP TO BSC. HAD SMALL AMOUNT OF LOOSE WATERY STOOL. SKIN CARE PER STAFF. REPOSITIONED IN CHAIR AT BEDSIDE.
--- NOTE | 2020-11-22 11:30 | NUR ---
UP TO BSC AGAIN. LOOSE WATERY STOOL MEDIUM BROWN.
--- NOTE | 2020-11-22 12:30 | NUR ---
ASSISTED TO BED PER STAFF. SITTING UP EATING LUNCH. DENIES NEEDS. FSBS WAS 135. NO COVERAGE NEEDED. DENIES NEEDS.
[2020-11-22 13:42] VITALS: BP 114/66
--- NOTE | 2020-11-22 16:30 | NUR ---
FSBS 310. GIVEN 8 UNITS HUMALOG SUBQ PER SS.
[2020-11-22 16:35] VITALS: BP 113/61
--- NOTE | 2020-11-22 19:12 | NUR ---
ATE MOST OF SUPPER. DENIES NEEDS. NO CHANGES NOTED.
--- NOTE | 2020-11-22 20:43 | NUR ---
PATIENT BLOOD SUGAR 73. BEDTIME SNACK PROVIDED. TRANSFERRED TO [facility] WITH ONE PERSON ASSIST. EXCORIATION TO BOTTOM IMPROVING.
[2020-11-23 07:23] LABS: BASOPHILS 0.1 % (0-2); EOSINOPHILS 0.7 % (0-7); HEMATOCRIT 28.6 % (42.0-54.0); HEMOGLOBIN 8.7 g/dL (13.5-17.5); LYMPHOCYTE ABS# 1.66 10x3/uL (1.32-3.57); MCH 25.1 pg (26.0-34.0); MCHC 30.4 g/dL (31.0-37.0); MCV 82.7 fL (80.0-100.0); MEAN PLATELET VOLUME 10.4 fL (7.4-10.4); MONOCYTES 7.8 % (2-11); NEUTROPHIL ABS# 8.37 10x3/uL (1.78-5.38); NEUTROPHILS 75.4 % (40-80); PLATELET COUNT 242 10x3/uL (130-400); RBC 3.46 10x6/uL (4.20-6.10); RDW 16.7 % (11.5-14.5); WBC 11.1 10x3/uL (4.8-10.8)
--- NOTE | 2020-11-23 08:25 | NUR ---
ASSESSMENT PER FLOW SHEET. PATIENT WITHOUT DISTRESS.UP TO CHAIR FOR BREAKFAST. KIKE MAT ON AND WORKING.DOOR OPEN TO MONITOR
--- NOTE | 2020-11-23 09:41 | NUR ---
WE ARE WAITING DETERMINATION ON PATIENT FROM [facility]. I HAVE PLACED A CALL TO THE OPERATIONS LEADER, MARCELO VÁZQUEZ, AND HAD TO LEAVE HER A VOICEMAIL. I WILL FOLLOW UP AGAIN LATER IF I DO NOT HEAR BACK FROM HER. DOMINIQUE BLANK RN CLINICAL LIAISON, INPATIENT REHAB.
[2020-11-23 10:02] VITALS: BP 110/68
[2020-11-23 10:47] LABS: BASOPHILS 0 % (0-2); EOSINOPHILS 0.5 % (0-7); HEMATOCRIT 31.1 % (42.0-54.0); HEMOGLOBIN 9.5 g/dL (13.5-17.5); IMMATURE GRANULOCYTES 0.9 % (0-5); LYMPHOCYTE ABS# 0.69 10x3/uL (1.32-3.57); LYMPHOCYTES 5.5 % (15-50); MCHC 30.5 g/dL (31.0-37.0); MCV 81.8 fL (80.0-100.0); MEAN PLATELET VOLUME 10.4 fL (7.4-10.4); MONOCYTES 3.7 % (2-11); NEUTROPHILS 89.4 % (40-80); PLATELET COUNT 240 10x3/uL (130-400); RDW 16.6 % (11.5-14.5); WBC 12.6 10x3/uL (4.8-10.8)
[2020-11-23 10:57] LABS: ALBUMIN 1.8 g/dL (3.4-5.0); BILIRUBIN - TOTAL 0.41 mg/dL (0.2-1.3); CALCIUM 7.6 mg/dL (8.5-10.1); CARBON DIOXIDE 15.6 mmol/L (21.0-32.0); CREATININE - SERUM 2.1 mg/dL (0.6-1.3); MAGNESIUM - SERUM 1.8 mg/dL (1.8-2.4); POTASSIUM - SERUM 3.6 mmol/L (3.5-5.1); PROTEIN - SERUM 6.1 g/dL (6.4-8.2)
--- NOTE | 2020-11-23 12:18 | NUR ---
Nutrition reassessment: Pt s/p BKA Diet order: consistent CHO PO intake 100% most meals Labs reviewed; glucose under fair control Wt: 186# Estimated needs remain the same as initial assessment from 11/16/20 Nutrition diagnosis: Increased nutrient needs (protein) R/T surgical wound AEB the same. Nutrition goals: - PO intake =/> 75% of meals, snacks - Meet est fluid needs - Stable dry wt Interventions: Will continue to provide food choices with selective menus and honor food preferences within diet restrictions. RDN follow-up: 11/26/20
--- NOTE | 2020-11-23 12:36 | NUR ---
ADDITIONAL INFORMATION HAS BEEN SENT TO [facility] PER THEIR REQUEST. WE ARE STILL WAITING ON DETERMINATION. DOMINIQUE BLANK RN CLINICAL LIAISON, INPATIENT REHAB.
[2020-11-23 14:07] VITALS: BP 110/65
--- NOTE | 2020-11-23 15:19 | NUR ---
OT NOTE: PT DOING VERY WELL. RE ADJUSTED AND PLACED BS COMMODE OVER TOILET.. PRACTICED AMB BACK AND FORTH FROM CHAIR TO TOILET WITH MIN ASSIST AND USE OF WALKER.. EDUCATION REGARDING SAFE TRANSFERS AND BACKING UP TO TOILET OR CHAIR BEFORE ATTEMPTING TO SIT; PRACTICED TOILET HYGIENE AND EDUCATED ON OTHER TEXH TO ASSIST,,PT FEARFUL OF FALLING BUT AFTER PLACING BS COMMODE OVER TOILET, PT FELT BETTER AND LESS FEARFUL OF FALLING; PT ABLE TO PERFORM FEEDING AND SIMPLE GROOMING WITH SET UP; DISCUSSED LAYOUT OF HOME.. DISCUSSED NEED FOR REHAB. ELIAS HDZ, OTR/L [phone]
--- NOTE | 2020-11-23 15:33 | NUR ---
OT NOTE: PT COMPLETED SIT TO STAND WITH MIN A. PT COMPLETED BED TO CHAIR TSF WITH MIN A. PT COMPLETED CHAIR TO TOILET TSFS WITH MIN A. PT COMPLETED HAND HYGIENE WITH SETUP. [phone] AIDEN CASTILLO COTA
[2020-11-23 18:59] VITALS: BP 116/60
[2020-11-23 20:00] VITALS: BP 145/64
[2020-11-24] VITALS: BP 103/61
[2020-11-24 04:00] VITALS: BP 100/67
[2020-11-24 07:43] LABS: BASOPHILS 0.1 % (0-2); EOSINOPHILS 1.4 % (0-7); HEMATOCRIT 33.2 % (42.0-54.0); IMMATURE GRANULOCYTES 1.3 % (0-5); MCH 24.8 pg (26.0-34.0); MCHC 30.1 g/dL (31.0-37.0); MCV 82.2 fL (80.0-100.0); MEAN PLATELET VOLUME 10.6 fL (7.4-10.4); NEUTROPHIL ABS# 8.43 10x3/uL (1.78-5.38); NEUTROPHILS 72.2 % (40-80); RBC 4.04 10x6/uL (4.20-6.10); RDW 16.9 % (11.5-14.5); WBC 11.7 10x3/uL (4.8-10.8)
[2020-11-24 07:56] LABS: PLATELET COUNT 316 10x3/uL (130-400)
[2020-11-24 08:03] LABS: ANION GAP 20.1 mmol/L (8-16); BILIRUBIN - TOTAL 0.43 mg/dL (0.2-1.3); CALCIUM 7.4 mg/dL (8.5-10.1); CARBON DIOXIDE 15.3 mmol/L (21.0-32.0); CREATININE - SERUM 1.8 mg/dL (0.6-1.3); MAGNESIUM - SERUM 1.6 mg/dL (1.8-2.4); POTASSIUM - SERUM 3.4 mmol/L (3.5-5.1); PROTEIN - SERUM 5.8 g/dL (6.4-8.2)
[2020-11-24 08:50] VITALS: BP 103/64
[2020-11-24 14:48] VITALS: BP 106/65
--- NOTE | 2020-11-24 15:24 | NUR ---
OT NOTE: PT COMPLETED BED MOB WITH SBA. PT COMPLETED EOB SITTING WITH SPV. PT COMPLETED SIT TO STAND WITH CGA. PT COMPLETED SIDE STEPS WITH CGA. PT COMPLETED BUE AROM EXS TOLERATED. PT DID WELL. [phone] THANKAIDEN QUINTANA COTA
[2020-11-24 17:51] VITALS: BP 116/71
[2020-11-24 20:00] VITALS: BP 125/68
[2020-11-25] VITALS: BP 121/76
[2020-11-25 04:00] VITALS: BP 114/64
[2020-11-25 07:15] LABS: BASOPHILS 0.1 % (0-2); EOSINOPHILS 0.7 % (0-7); HEMATOCRIT 30.7 % (42.0-54.0); HEMOGLOBIN 9.4 g/dL (13.5-17.5); IMMATURE GRANULOCYTES 1.1 % (0-5); LYMPHOCYTE ABS# 1.89 10x3/uL (1.32-3.57); LYMPHOCYTES 16.8 % (15-50); MCH 24.9 pg (26.0-34.0); MCHC 30.6 g/dL (31.0-37.0); MCV 81.4 fL (80.0-100.0); MEAN PLATELET VOLUME 10.6 fL (7.4-10.4); MONOCYTES 7.6 % (2-11); NEUTROPHIL ABS# 8.31 10x3/uL (1.78-5.38); NEUTROPHILS 73.7 % (40-80); PLATELET COUNT 303 10x3/uL (130-400); RBC 3.77 10x6/uL (4.20-6.10); WBC 11.3 10x3/uL (4.8-10.8)
[2020-11-25 07:36] LABS: ALBUMIN 1.9 g/dL (3.4-5.0); ANION GAP 17.5 mmol/L (8-16); BILIRUBIN - TOTAL 0.32 mg/dL (0.2-1.3); CALCIUM 7.6 mg/dL (8.5-10.1); CARBON DIOXIDE 13.6 mmol/L (21.0-32.0); CREATININE - SERUM 1.7 mg/dL (0.6-1.3); MAGNESIUM - SERUM 1.6 mg/dL (1.8-2.4); POTASSIUM - SERUM 3.1 mmol/L (3.5-5.1); PROTEIN - SERUM 6.1 g/dL (6.4-8.2)
--- NOTE | 2020-11-25 07:55 | NUR ---
PATIENT K+ AND MAG LOW THIS MORNING, REPLETE PER PROTOCOL. NO OTHER NEEDS AT THISA TIME. PATIENT SITTING UP IN CHAIR AT BEDSIDE AWAITING BREAKFAST. CONTINUE WITH PLAN OF CARE
[2020-11-25 10:11] VITALS: BP 136/67
[2020-11-25 14:48] VITALS: BP 109/66
--- NOTE | 2020-11-25 14:52 | NUR ---
OT NOTE: PT COMPLETED SIT TO STAND WITH SBA-CGA. PT COMPLETED STANDING ENDURANCE WITH SBA. PT COMPLETED DOFF/BERNARDO SOCK WITH SBA WHILE SEATED. PT COMPLETED BUE AROM EXS TOLERATED. PT DID WELL. [phone] THANK YOU,ZHEN BORGES
[2020-11-25] MEDS ORDERED: GABAPENTIN100 MG PO (16:01)
[2020-11-25] MEDS ORDERED: AMIODARONE HCL200 MG PO (16:01)
[2020-11-25] MEDS ORDERED: FLORAJEN DIGES1 EACH PO (16:02)
[2020-11-25] MEDS ORDERED: MUPIROCIN22 GM NASAL (16:02)
--- NOTE | 2020-11-25 16:35 | NUR ---
I have reviewed this patient and I concur with the Shift Assessment completed by the Licensed Practical Nurse today this shift.
--- NOTE | 2020-11-25 17:01 | MORECARE ---
CASE MANAGEMENT DISCHARGE SUMMARY PATIENT: THOR JAMES UNIT: [id number] ADM DATE: 11/14/20 AGE: 60 : 58 SEX: M [facility] AUTHOR: LUCIANODOC PHYSICIAN: REFERRING PHYSICIAN: SHANEKA MORENO MD DATE OF SERVICE: 11/25/20 Case Management Discharge Planning Summary DCP REVIEW SUMMARY ANTICIPATED D/C DATE: EXPECTED LOS : CASE STATUS: DCP Initiated INITIAL REVIEW: 11/14/2020 INITIAL REVIEWER: Ayla Rajan FINAL DISCHARGE DISPOSITION: 06 : Discharged/Trans to Home Under Care of [facility] in Anticipation of Skilled Care FINAL REVIEWER: FINAL REVIEW DATE: DCP Focus Questions & Answers QUESTION: ANSWER : PATIENT: THOR JAMES ENCOUNTER: [id number] MEDICAL RECORD#: [id number] ADMISSION DATE: 11/14/2020 DISCHARGE DATE: ATTENDING MD: : AGE: 60 MARITAL STATUS: M DC PLAN ID: [id number] FACILITY: [facility] PRINTED ON: 11/25/20 17:00 CT All edits/amendments must be made on the electronic document DICTATION DATE: 11/25/201699 REDEVELOPMENT SPECIALIST: JERMAINE 11/25/201699 RPT#: [id number] DC DATE: STATUS: ADM IN [facility] [address] [place] [address] END OF REPORT
[2020-11-25 17:11] VITALS: BP 105/56
--- NOTE | 2020-11-25 17:13 | MORECARE ---
CASE MANAGEMENT DISCHARGE SUMMARY PATIENT: THOR JAMES UNIT: [id number] ADM DATE: 11/14/20 AGE: 60 : 58 SEX: M ROOM/BED: D.2217 AUTHOR: LUCIANO,DOC PHYSICIAN: REFERRING PHYSICIAN: SHANEKA MORENO MD DATE OF SERVICE: 11/25/20 Case Management Discharge Planning Summary COMMENTS ENTERED DATE: 11/25/20 16:58 CT COMMENT TYPE: Discharge Planning REVIEWER: Ayla Rajan PATIENT WILL BE DISCHARGING HOME WITH HOME HEALTH, [facility] HE WILL BE GOING HOME WITH IV ABX WITH [facility], THEY HAVE ALREADY DELIVERED THE ABX AND TAUGHT AT THE HOSPITAL [facility] WILL BE DELIVERING A WHEELCHAIR AND A BEDSIDE 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 [facility] WILL START CARE ON MONDAY WHEN HIS ABX ID DUE. I WILL FAX ALL CLINICALS OVER TO [facility] SIGNED AND IMM ALSO SIGNED AND PLACED IN CHART CM TO FOLLOW NEEDED DCP REVIEW SUMMARY ANTICIPATED D/C DATE: EXPECTED LOS : CASE STATUS: DCP Initiated INITIAL REVIEW: 11/14/2020 INITIAL REVIEWER: Ayla Rajan FINAL DISCHARGE DISPOSITION: 06 : Discharged/Trans to Home Under Care of [facility] in Anticipation of Skilled Care FINAL REVIEWER: FINAL REVIEW DATE: DCP Focus Questions & Answers QUESTION: ANSWER : PATIENT: THOR JAMES ENCOUNTER: [id number] MEDICAL RECORD#: [id number] ADMISSION DATE: 11/14/2020 DISCHARGE DATE: ATTENDING MD: : AGE: 60 MARITAL STATUS: M DC PLAN ID: [id number] FACILITY: [facility] PRINTED ON: 11/25/20 17:12 CT All edits/amendments must be made on the electronic document DICTATION DATE: 11/25/201711 BUGGYMAN: JERMAINE 11/25/201711 RPT#: [id number] DC DATE: STATUS: ADM IN [facility] [address] [place] [address] END OF REPORT
--- NOTE | 2020-11-26 08:43 | MORECARE ---
CASE MANAGEMENT DISCHARGE SUMMARY PATIENT: THOR JAMES UNIT: [id number] ADM DATE: 11/14/20 AGE: 60 : 58 SEX: M ROOM/BED: D.2217 AUTHOR: LUCIANO,DOC PHYSICIAN: REFERRING PHYSICIAN: SHANEKA MORENO MD DATE OF SERVICE: 11/26/20 Case Management Discharge Planning Summary COMMENTS ENTERED DATE: 11/25/20 16:58 CT COMMENT TYPE: Discharge Planning REVIEWER: Ayla Rajan PATIENT WILL BE DISCHARGING HOME WITH HOME HEALTH, [facility] HE WILL BE GOING HOME WITH IV ABX WITH [facility], THEY HAVE ALREADY DELIVERED THE ABX AND TAUGHT AT THE [facility] [place] WILL BE DELIVERING A WHEELCHAIR AND A BEDSIDE 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 [facility] WILL START CARE ON MONDAY WHEN HIS ABX ID DUE. I WILL FAX ALL CLINICALS OVER TO [facility] SIGNED AND IMM ALSO SIGNED AND PLACED IN CHART CM TO FOLLOW NEEDED DCP REVIEW SUMMARY ANTICIPATED D/C DATE: EXPECTED LOS : CASE STATUS: DCP Initiated INITIAL REVIEW: 11/14/2020 INITIAL REVIEWER: Ayla Rajan FINAL DISCHARGE DISPOSITION: 06 : Discharged/Trans to Home Under Care of [facility] in Anticipation of Skilled Care FINAL REVIEWER: FINAL REVIEW DATE: DCP Focus Questions & Answers QUESTION: ANSWER : PATIENT: THOR JAMES ENCOUNTER: [id number] MEDICAL RECORD#: [id number] ADMISSION DATE: 11/14/2020 DISCHARGE DATE: 11/25/2020 ATTENDING MD: : AGE: 60 MARITAL STATUS: M DC PLAN ID: [id number] FACILITY: [facility] PRINTED ON: 11/26/20 8:43 CT All edits/amendments must be made on the electronic document DICTATION DATE: 11/26/20842 WIRE DRAWER: JERMAINE 11/26/20842 RPT#: [id number] DC DATE:11/25/20 STATUS: DIS IN [facility] [address] [place] [address] END OF REPORT
--- NOTE | 2020-11-26 14:07 | MORECARE ---
CASE MANAGEMENT DISCHARGE SUMMARY PATIENT: THOR JAMES UNIT: [id number] ADM DATE: 11/14/20 AGE: 60 : 58 SEX: M ROOM/BED: D.2217 AUTHOR: LUCIANO,DOC PHYSICIAN: REFERRING PHYSICIAN: SHANEKA MORENO MD DATE OF SERVICE: 11/26/20 Case Management Discharge Planning Summary COMMENTS ENTERED DATE: 11/25/20 16:58 CT COMMENT TYPE: Discharge Planning REVIEWER: Ayla Rajan PATIENT WILL BE DISCHARGING HOME WITH HOME HEALTH, [facility] HE WILL BE GOING HOME WITH IV ABX WITH [facility], THEY HAVE ALREADY DELIVERED THE ABX AND [facility]AUGHT AT [facility] WILL BE DELIVERING A WHEELCHAIR AND A BEDSIDE 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 [facility] WILL START CARE ON MONDAY WHEN HIS ABX ID DUE. I WILL FAX ALL CLINICALS OVER TO [facility] SIGNED AND IMM ALSO SIGNED AND PLACED IN CHART CM TO FOLLOW NEEDED DCP REVIEW SUMMARY ANTICIPATED D/C DATE: EXPECTED LOS : CASE STATUS: DCP Initiated INITIAL REVIEW: 11/14/2020 INITIAL REVIEWER: Ayla Rajan FINAL DISCHARGE DISPOSITION: 06 : Discharged/Trans to Home Under Care of [facility] in Anticipation of Skilled Care FINAL REVIEWER: FINAL REVIEW DATE: DCP Focus Questions & Answers QUESTION: ANSWER : PATIENT: THOR JAMES ENCOUNTER: [id number] MEDICAL RECORD#: [id number] ADMISSION DATE: 11/14/2020 DISCHARGE DATE: 11/25/2020 ATTENDING MD: : AGE: 60 MARITAL STATUS: M DC PLAN ID: [id number] FACILITY: [facility] PRINTED ON: 11/26/20 14:07 CT All edits/amendments must be made on the electronic document DICTATION DATE: 11/26/201406 MANAGER INPATIENT: JERMAINE 11/26/201406 RPT#: [id number] DC DATE:11/25/20 STATUS: DIS IN [facility] [address] [place] [address] END OF REPORT
== END 2020-11-25 18:23 | disposition home health service (06) | DRG 854 ==
LOC: D.ER 10:37 → D.MS 11:45 → D.ICU 11:45 → D.MS 11-18 15:51
PROVIDERS: Family Medicine; Orthopaedic Surgery; ADMIT Family Medicine; ATTEND Family Medicine
PROC: 0Y6J0Z2 Detachment at Left Lower Leg, Mid, Open Approach (ICD-10-PCS; principal; 2020-11-17 12:00)
DX: A41.9 Sepsis, unspecified organism (principal); E87.2 Acidosis; E87.1 Hypo-osmolality and hyponatremia; N17.9 Acute kidney failure, unspecified; E72.20 Disorder of urea cycle metabolism, unspecified; L03.116 Cellulitis of left lower limb; E44.0 Moderate protein-calorie malnutrition; M86.172 Other acute osteomyelitis, left ankle and foot; I48.21 Permanent atrial fibrillation; K50.90 Crohn's disease, unspecified, without complications; E11.610 Type 2 diabetes mellitus with diabetic neuropathic arthropathy; I50.9 Heart failure, unspecified; E78.5 Hyperlipidemia, unspecified; J44.9 Chronic obstructive pulmonary disease, unspecified; K21.9 Gastro-esophageal reflux disease without esophagitis; Z79.84 Long term (current) use of oral hypoglycemic drugs; R00.0 Tachycardia, unspecified; I95.9 Hypotension, unspecified; E83.42 Hypomagnesemia; E11.65 Type 2 diabetes mellitus with hyperglycemia; D50.9 Iron deficiency anemia, unspecified; E11.69 Type 2 diabetes mellitus with other specified complication; F41.9 Anxiety disorder, unspecified; Z99.81 Dependence on supplemental oxygen; Z68.26 Body mass index [BMI] 26.0-26.9, adult; I11.0 Hypertensive heart disease with heart failure; E11.51 Type 2 diabetes mellitus with diabetic peripheral angiopathy without gangrene

== ENCOUNTER → 2020-11-30 19:35 | Outpatient (CLI) | payer MEDICARE ==
[2020-11-17 09:56] VITALS: BMI 26.2
[~2020-11-30 19:35] MED LIST changes: +AMIODARONE HCL200 MG PO; +FLORAJEN DIGES1 EACH PO; +MUPIROCIN22 GM NASAL
[2020-11-30 19:59] LABS: BASOPHILS 0.6 % (0-2); EOSINOPHILS 0.5 % (0-7); HEMATOCRIT 35.3 % (42.0-54.0); HEMOGLOBIN 10.8 g/dL (13.5-17.5); LYMPHOCYTES 9.5 % (15-50); MCH 24.8 pg (26.0-34.0); MCHC 30.6 g/dL (31.0-37.0); MCV 81.2 fL (80.0-100.0); MEAN PLATELET VOLUME 8.1 fL (7.4-10.4); MONOCYTES 7.5 % (2-11); NEUTROPHILS 81.9 % (40-80); RBC 4.35 10x6/uL (4.20-6.10); RDW 20.3 % (11.5-14.5)
[2020-11-30 20:00] LABS: PLATELET COUNT 422 10x3/uL (130-400)
[2020-11-30 21:13] LABS: ERYTHROCYTE SEDIMENTATION RATE 15 mm/hr (0-20)
[2020-12-01 09:06] LABS: CREATINE KINASE 48 UL (21-232); CREATININE - SERUM 2.1 mg/dL (0.6-1.3); UREA NITROGEN 13 mg/dL (7-18)
[2020-12-01 09:07] LABS: C-REACTIVE PROTEIN < 0.2 mg/dL (0.0-0.9)
== END | disposition home or self-care (01) ==
LOC: D.LABREF 19:35
PROVIDERS: ATTEND Orthopaedic Surgery
DX: Z47.81 Encounter for orthopedic aftercare following surgical amputation (principal)

== ENCOUNTER → 2020-12-07 20:10 | Outpatient (CLI) | payer MEDICARE ==
[2020-11-17 09:56] VITALS: BMI 26.2
[2020-12-07 20:20] LABS: BASOPHILS 0.3 % (0-2); EOSINOPHILS 0 % (0-7); HEMATOCRIT 32.4 % (42.0-54.0); HEMOGLOBIN 10.3 g/dL (13.5-17.5); LYMPHOCYTES 5.6 % (15-50); MCH 25.9 pg (26.0-34.0); MCHC 31.7 g/dL (31.0-37.0); MCV 81.5 fL (80.0-100.0); MEAN PLATELET VOLUME 8.2 fL (7.4-10.4); MONOCYTES 4.7 % (2-11); NEUTROPHILS 89.4 % (40-80); RBC 3.97 10x6/uL (4.20-6.10); WBC 15.8 10x3/uL (4.8-10.8)
[2020-12-07 20:21] LABS: PLATELET COUNT 202 10x3/uL (130-400)
[2020-12-07 20:51] LABS: CREATININE - SERUM 1.5 mg/dL (0.6-1.3); UREA NITROGEN 13 mg/dL (7-18)
[2020-12-07 20:53] LABS: CREATINE KINASE 893 UL (21-232)
[2020-12-07 20:54] LABS: CKMB 3.4 U/L (0.0-3.6)
[2020-12-07 21:26] LABS: ERYTHROCYTE SEDIMENTATION RATE 8 mm/hr (0-20)
== END | disposition home or self-care (01) ==
LOC: D.LABREF 20:10
PROVIDERS: ATTEND Orthopaedic Surgery
DX: Z47.81 Encounter for orthopedic aftercare following surgical amputation (principal)

== ENCOUNTER → 2020-12-14 13:11 | Outpatient (CLI) | payer MEDICARE ==
[2020-11-17 09:56] VITALS: BMI 26.2
[2020-12-14 14:13] LABS: HEMATOCRIT 34.5 % (42.0-54.0); HEMOGLOBIN 10.9 g/dL (13.5-17.5); MCH 26.8 pg (26.0-34.0); MCHC 31.5 g/dL (31.0-37.0); MCV 85.1 fL (80.0-100.0); MEAN PLATELET VOLUME 8.3 fL (7.4-10.4); RBC 4.05 10x6/uL (4.20-6.10); WBC 12.7 10x3/uL (4.8-10.8)
[2020-12-14 14:14] LABS: PLATELET COUNT 148 10x3/uL (130-400)
[2020-12-14 14:39] LABS: CREATINE KINASE 63 UL (21-232); CREATININE - SERUM 1.4 mg/dL (0.6-1.3); UREA NITROGEN 11 mg/dL (7-18)
[2020-12-14 14:41] LABS: EOSINOPHILS 1 % (0-7); LYMPHOCYTES 19 % (15-50); MONOCYTES 9 % (2-11); NEUTROPHILS 71 % (40-80); PLATELET ESTIMATE NORMAL
[2020-12-14 14:48] LABS: C-REACTIVE PROTEIN < 0.2 mg/dL (0.0-0.9)
[2020-12-14 15:18] LABS: ERYTHROCYTE SEDIMENTATION RATE 4 mm/hr (0-20)
== END | disposition home or self-care (01) ==
LOC: D.LABREF 13:11
PROVIDERS: ATTEND Orthopaedic Surgery
DX: Z47.81 Encounter for orthopedic aftercare following surgical amputation (principal)

== ENCOUNTER 2020-12-18 16:28 | Inpatient (IN) | payer MEDICARE ==
[~2020-12-18] VITALS: Ht 180.3 cm; Wt 86.4 kg
[2020-12-18] MEDS ORDERED: MEGACE40 MG PO (17:30)
[2020-12-18 17:37] VITALS: BP 118/61; BMI 26.5
[2020-12-18 17:38] LABS: BASOPHILS 0.5 % (0-2); EOSINOPHILS 0.1 % (0-7); HEMOGLOBIN 10.9 g/dL (13.5-17.5); LYMPHOCYTES 5.6 % (15-50); MCH 27.3 pg (26.0-34.0); MCHC 32.1 g/dL (31.0-37.0); MCV 85.2 fL (80.0-100.0); MEAN PLATELET VOLUME 7.4 fL (7.4-10.4); MONOCYTES 4.9 % (2-11); NEUTROPHILS 88.9 % (40-80); PLATELET COUNT 142 10x3/uL (130-400); RBC 3.99 10x6/uL (4.20-6.10); RDW 24.7 % (11.5-14.5); WBC 10.4 10x3/uL (4.8-10.8)
[2020-12-18 17:43] LABS: C-REACTIVE PROTEIN < 0.2 mg/dL (0.0-0.9); CALC OSMOLALITY 291 mosm/kg (275-300); CARBON DIOXIDE 21.3 mmol/L (21.0-32.0); CHLORIDE - SERUM 112 mmol/L (98-107); CREATININE - SERUM 1.4 mg/dL (0.6-1.3); GLUCOSE 189 mg/dL (74-106); POTASSIUM - SERUM 4.4 mmol/L (3.5-5.1); SODIUM 144 mmol/L (136-145); UREA NITROGEN 13 mg/dL (7-18); eGFR NON AFRICAN AMERICAN 55 mL/min (90-120)
[2020-12-18 18:41] LABS: ERYTHROCYTE SEDIMENTATION RATE 8 mm/hr (0-20)
[2020-12-18 20:43] VITALS: Ht 180.3 cm; Wt 86.4 kg
[2020-12-18 21:57] VITALS: BP 123/70
--- NOTE | 2020-12-19 03:57 | NUR ---
I have reviewed this patient and I concur with the Shift Assessment completed by the Licensed Practical Nurse today this shift.
[2020-12-19 06:38] VITALS: BP 124/71
--- NOTE | 2020-12-19 07:25 | NUR ---
REC'D IN BED WITH EYES CLOSED EASILY TO AROUSED WHEN NAME IS CALLED. RESP EVEN AND UNLABORED WITH NO DISTRESS NOTED. CAN EXPRESS NEEDS AND WANTS. NO C/O NOTED. ASSESSMENT COMPLETED. C/L IN REACH AT BEDSIDE.
--- NOTE | 2020-12-19 08:00 | NUR ---
PATIENT IS WITHOUT NEEDS.CALL LIGHT IN REACH
[2020-12-19 09:28] VITALS: BP 132/74
[2020-12-19 12:16] VITALS: BP 118/71
[2020-12-19 12:55] LABS: INR 1.07 (0.85-1.17); PROTIME 12.9 SECONDS (11.6-15.0)
[2020-12-19 13:01] LABS: BASOPHILS 0.7 % (0-2); EOSINOPHILS 0.7 % (0-7); HEMATOCRIT 33.6 % (42.0-54.0); HEMOGLOBIN 10.7 g/dL (13.5-17.5); MCH 27.3 pg (26.0-34.0); MCHC 31.8 g/dL (31.0-37.0); MCV 85.6 fL (80.0-100.0); MEAN PLATELET VOLUME 7.4 fL (7.4-10.4); MONOCYTES 6.2 % (2-11); NEUTROPHILS 73.4 % (40-80); PLATELET COUNT 132 10x3/uL (130-400); RBC 3.92 10x6/uL (4.20-6.10); RDW 24.7 % (11.5-14.5)
[2020-12-19 13:06] LABS: IMMATURE GRANULOCYTES 2.2 % (0-5); RETIC 2.84 % (0.45-2.28)
[2020-12-19 13:27] LABS: ALBUMIN 2.5 g/dL (3.4-5.0); ANION GAP 10.3 mmol/L (8-16); BILIRUBIN - TOTAL 0.36 mg/dL (0.2-1.3); CALCIUM 7.3 mg/dL (8.5-10.1); CARBON DIOXIDE 24.2 mmol/L (21.0-32.0); CREATININE - SERUM 1.3 mg/dL (0.6-1.3); PROTEIN - SERUM 5.4 g/dL (6.4-8.2)
[2020-12-19 13:28] LABS: POTASSIUM - SERUM 3.5 mmol/L (3.5-5.1)
[2020-12-19 13:43] LABS: % SATURATION 23 % (15-55); IRON 52 ug/dl (35-150); TOTAL IRON BIND CAPACITY 225 ug/dl (260-445); UNSAT IRON BIND CAPACITY 173 ug/dl (150-375)
[2020-12-19 17:08] VITALS: BP 114/70
[2020-12-19 20:00] VITALS: BP 114/62
[2020-12-20] VITALS (9 sets, daily range): BP systolic 111–126; BP diastolic 63–85
[2020-12-20 04:03] LABS: BILIRUBIN NEGATIVE (NEGATIVE); KETONE NEGATIVE (NEGATIVE); NITRITE NEGATIVE (NEGATIVE); UROBILINOGEN NORMAL mg/dL (< 2)
[2020-12-20 07:47] LABS: CALCIUM 7.1 mg/dL (8.5-10.1); CARBON DIOXIDE 21.6 mmol/L (21.0-32.0); CREATININE - SERUM 1.3 mg/dL (0.6-1.3); POTASSIUM - SERUM 3.6 mmol/L (3.5-5.1)
--- NOTE | 2020-12-20 07:50 | NUR ---
IN BED RESTING. FREE FROM SIGNS OF DISTRESS. BED LOW POSITION, CALL LIGHT IN REACH. AROUSES TO VOICE, DENIES NEEDS AT THIS TIME. WILL CONTINUE TO MONITOR.
[2020-12-20 07:51] LABS: BASOPHILS 0.1 % (0-2); EOSINOPHILS 0.9 % (0-7); HEMATOCRIT 35.6 % (42.0-54.0); HEMOGLOBIN 11.1 g/dL (13.5-17.5); IMMATURE GRANULOCYTES 2.2 % (0-5); LYMPHOCYTE ABS# 1.34 10x3/uL (1.32-3.57); LYMPHOCYTES 14.8 % (15-50); MCH 27.3 pg (26.0-34.0); MCHC 31.2 g/dL (31.0-37.0); MCV 87.7 fL (80.0-100.0); MEAN PLATELET VOLUME 9.9 fL (7.4-10.4); MONOCYTES 6.9 % (2-11); NEUTROPHILS 75.1 % (40-80); PLATELET COUNT 141 10x3/uL (130-400); RBC 4.06 10x6/uL (4.20-6.10); RDW 22.4 % (11.5-14.5); WBC 9.1 10x3/uL (4.8-10.8)
--- NOTE | 2020-12-20 16:27 | NUR ---
JUAN PABLO HESTER WOUND MATRIX #[id number] LOT #[id number] EXP. DATE 04/07
[2020-12-20] MEDS ORDERED: BACTRIM DS TAB1 EAC1 PO (18:54)
--- NOTE | 2020-12-20 19:30 | MORECARE ---
CASE MANAGEMENT DISCHARGE SUMMARY PATIENT: THOR JAMES UNIT: [id number] ADM DATE: 12/20/20 AGE: 60 : 58 SEX: M ROOM/BED: D.2210 AUTHOR: LUCIANO,DOC PHYSICIAN: REFERRING PHYSICIAN: GILLIAN BECERRA DO DATE OF SERVICE: 12/20/20 Case Management Discharge Planning Summary DCP REVIEW SUMMARY ANTICIPATED D/C DATE: 12/20/2020 EXPECTED LOS : 1 CASE STATUS: DCP Initiated INITIAL REVIEW: 12/18/2020 INITIAL REVIEWER: Nicola Glass FINAL DISCHARGE DISPOSITION: : FINAL REVIEWER: FINAL REVIEW DATE: DCP Focus Questions & Answers QUESTION: ANSWER : PATIENT: THOR JAMES ENCOUNTER: [id number] MEDICAL RECORD#: [id number] ADMISSION DATE: 12/20/2020 DISCHARGE DATE: ATTENDING MD: GILLIAN LANDEROS : AGE: 60 MARITAL STATUS: M DC PLAN ID: [id number] FACILITY: [facility] PRINTED ON: 12/20/20 19:29 CT All edits/amendments must be made on the electronic document DICTATION DATE: 12/20/201928 MAINTENANCE EQUIPMENT OPERATOR: JERMAINE 12/20/201928 RPT#: [id number] DC DATE: STATUS: ADM IN [facility] [address] [place] [address] END OF REPORT
--- NOTE | 2020-12-20 19:40 | MORECARE ---
CASE MANAGEMENT DISCHARGE SUMMARY PATIENT: THOR JAMES UNIT: [id number] ADM DATE: 12/20/20 AGE: 60 : 58 SEX: M ROOM/BED: D.2210 AUTHOR: VIMAL WOLF PHYSICIAN: REFERRING PHYSICIAN: GILLIAN BECERRA DO DATE OF SERVICE: 12/20/20 Case Management Discharge Planning Summary COMMENTS ENTERED DATE: 12/20/20 19:33 CT COMMENT TYPE: Discharge Planning REVIEWER: Nicola Glass CM met with patient to complete DC plan and to evaluate needs. Patient lives independently with his spouse, Ava James, . Patient stated that his home is safe and has electricity and running water. Patient stated that the home has no steps to enter and he is able to manage entering his home without difficulty. Patient stated that he has no problems paying for medications and he fills his medications at [facility]. Patient stated that his primary care physician is Dr. Garcia. At discharge, the patient plans to return home and feels this is a safe discharge. CM discussed availability of home health, rehab services, and medical equipment. Patient declined SNF, IPR, and DME and stated that he is current with [facility]. ZACH signed and placed in chart. Patient stated that he has cane, walker, and wheelchair at home. Patient voiced no other needs at this time and is satisfied with DC plan. Transportation provider at discharge will be with Ava. DC IMM delivered, explained, signed by the patient, and placed in chart. Signed form also left with the patient. CM will continue to follow and will assist as needed with dc plans/needs. DCP REVIEW SUMMARY ANTICIPATED D/C DATE: 12/20/2020 EXPECTED LOS : 1 CASE STATUS: DCP Initiated INITIAL REVIEW: 12/18/2020 INITIAL REVIEWER: Nicola Glass FINAL DISCHARGE DISPOSITION: : FINAL REVIEWER: FINAL REVIEW DATE: DCP Focus Questions & Answers DCP Evaluation QUESTION: ANSWER Patient gives permission to discuss discharge plans with: (name, relationship and number) : spouse, Ava James, Patient's ability to cope with chronic illness : d. No chronic illness Patient's current cognitive status: : *Oriented to person, place, situation, time and present Family / Caregiver's ability to cope with chronic illness: : a. Adequate (ability to meet patient's medical needs, ensures patient attends medical appts.) Patient and/or caregiver agree upon recommended discharge plan? : Yes Physical Status: : Independent with ADL's Family / Caregiver's ability to cope with chronic illness: : a. Adequate (ability to meet patient's medical needs, ensures patient attends medical appts.) Functional screen assessment: : Basic needs can adequately be met by self Does the patient have the ability to pay for or attain post discharge needs / services? : Yes Living Arrangements: : Home with Spouse/Significant Other Is there a likelihood that the patient will require additional services to return to the preadmission environment? : No Equipment needed for post hospitalization: : None Baseline cognitive status: : *Oriented to person, place, situation, time and present Patient with capacity for self-care or can be cared for in same environment as prior to hospitalization? : Yes Physical environment modification needed / anticipated for discharge: : No Medication Management: : Patient states can afford medications Medication Management: : Patient states can read and understand medication labels Pharmacy name(s): : [facility] Does Patient have transportation to get home and to follow-up medical appointments when discharged from the hospital? : Yes Would patient like to participate in any Care Coordination programs (if applicable): : Not applicable Does the patient have electricity at home? : Yes Does the patient have running water in their house? : Yes Equipment in use: : Cane - Single Leg Equipment in use: : Walker - Rolling Equipment in use: : Wheelchair Mental health screen: : No mental health history DCP Re-evaluation QUESTION: ANSWER Would patient like to participate in any Care Coordination programs (if applicable): : Not applicable PATIENT: THOR JAMES ENCOUNTER: [id number] MEDICAL RECORD#: [id number] ADMISSION DATE: 12/20/2020 DISCHARGE DATE: ATTENDING MD: GILLIAN LANDEROS : AGE: 60 MARITAL STATUS: M DC PLAN ID: [id number] FACILITY: [facility] PRINTED ON: 12/20/20 19:40 CT All edits/amendments must be made on the electronic document DICTATION DATE: 12/20/201939 STITCHER SET UP OPERATOR AUTOMATIC: JERMAINE 12/20/201939 RPT#: [id number] DC DATE: STATUS: ADM IN [facility] [address] [place] [address] END OF REPORT
--- NOTE | 2020-12-20 19:50 | MORECARE ---
CASE MANAGEMENT DISCHARGE SUMMARY PATIENT: THOR JAMES UNIT: [id number] ADM DATE: 12/20/20 AGE: 60 : 58 SEX: M ROOM/BED: D.2210 AUTHOR: VIMAL WOLF PHYSICIAN: REFERRING PHYSICIAN: GILLIAN BECERRA DO DATE OF SERVICE: 12/20/20 Case Management Discharge Planning Summary COMMENTS ENTERED DATE: 12/20/20 19:33 CT COMMENT TYPE: Discharge Planning REVIEWER: Nicola Glass CM met with patient to complete DC plan and to evaluate needs. Patient lives independently with his spouse, Ava James, . Patient stated that his home is safe and has electricity and running water. Patient stated that the home has no steps to enter and he is able to manage entering his home without difficulty. Patient stated that he has no problems paying for medications and he fills his medications at [facility]. Patient stated that his primary care physician is Dr. Garcia. At discharge, the patient plans to return home and feels this is a safe discharge. CM discussed availability of home health, rehab services, and medical equipment. Patient declined SNF, IPR, and DME and stated that he is current with [facility]. ZACH signed and placed in chart. Patient stated that he has cane, walker, and wheelchair at home. Patient voiced no other needs at this time and is satisfied with DC plan. Transportation provider at discharge will be with Ava. DC IMM delivered, explained, signed by the patient, and placed in chart. Signed form also left with the patient. CM will continue to follow and will assist as needed with dc plans/needs. Appended by Nicola Glass on 12/20/2020 19:41 CDT: Patient stated that he followed with his physicians and was able to obtain his medications. Patient stated that he had to readmit because of a lack of healing form his surgical wound. It appears that this readmission was due to a surgical complication. CM will continue to follow and will assist as needed with dc plans/needs. DCP REVIEW SUMMARY ANTICIPATED D/C DATE: 12/20/2020 EXPECTED LOS : 1 CASE STATUS: DCP Initiated INITIAL REVIEW: 12/18/2020 INITIAL REVIEWER: Nicola Glass FINAL DISCHARGE DISPOSITION: : FINAL REVIEWER: FINAL REVIEW DATE: DCP Focus Questions & Answers DCP Evaluation QUESTION: ANSWER Patient gives permission to discuss discharge plans with: (name, relationship and number) : spouse, Ava James, Patient's ability to cope with chronic illness : d. No chronic illness Patient's current cognitive status: : *Oriented to person, place, situation, time and present Family / Caregiver's ability to cope with chronic illness: : a. Adequate (ability to meet patient's medical needs, ensures patient attends medical appts.) Patient and/or caregiver agree upon recommended discharge plan? : Yes Physical Status: : Independent with ADL's Family / Caregiver's ability to cope with chronic illness: : a. Adequate (ability to meet patient's medical needs, ensures patient attends medical appts.) Functional screen assessment: : Basic needs can adequately be met by self Does the patient have the ability to pay for or attain post discharge needs / services? : Yes Living Arrangements: : Home with Spouse/Significant Other Is there a likelihood that the patient will require additional services to return to the preadmission environment? : No Equipment needed for post hospitalization: : None Baseline cognitive status: : *Oriented to person, place, situation, time and present Patient with capacity for self-care or can be cared for in same environment as prior to hospitalization? : Yes Physical environment modification needed / anticipated for discharge: : No Medication Management: : Patient states can afford medications Medication Management: : Patient states can read and understand medication labels Pharmacy name(s): : [facility] Does Patient have transportation to get home and to follow-up medical appointments when discharged from the hospital? : Yes Would patient like to participate in any Care Coordination programs (if applicable): : Not applicable Does the patient have electricity at home? : Yes Does the patient have running water in their house? : Yes Equipment in use: : Cane - Single Leg Equipment in use: : Walker - Rolling Equipment in use: : Wheelchair Mental health screen: : No mental health history DCP Re-evaluation QUESTION: ANSWER Would patient like to participate in any Care Coordination programs (if applicable): : Not applicable PATIENT: THOR JAMES ENCOUNTER: [id number] MEDICAL RECORD#: [id number] ADMISSION DATE: 12/20/2020 DISCHARGE DATE: ATTENDING MD: GILLIAN LANDEROS : AGE: 60 MARITAL STATUS: M DC PLAN ID: [id number] FACILITY: [facility] PRINTED ON: 12/20/20 19:50 CT All edits/amendments must be made on the electronic document DICTATION DATE: 12/20/201949 RECREATION OFFICER: JERMAINE 12/20/201949 RPT#: [id number] DC DATE: STATUS: ADM IN [facility] [address] [place] [address] END OF REPORT
--- NOTE | 2020-12-20 20:41 | MORECARE ---
CASE MANAGEMENT DISCHARGE SUMMARY PATIENT: THOR JAMES UNIT: [id number] ADM DATE: 12/20/20 AGE: 60 : 58 SEX: M ROOM/BED: D.2210 AUTHOR: VIMAL WOLF PHYSICIAN: REFERRING PHYSICIAN: GILLIAN BECERRA DO DATE OF SERVICE: 12/20/20 Case Management Discharge Planning Summary COMMENTS ENTERED DATE: 12/20/20 19:33 CT COMMENT TYPE: Discharge Planning REVIEWER: Nicola Glass CM met with patient to complete DC plan and to evaluate needs. Patient lives independently with his spouse, Ava James, . Patient stated that his home is safe and has electricity and running water. Patient stated that the home has no steps to enter and he is able to manage entering his home without difficulty. Patient stated that he has no problems paying for medications and he fills his medications at [facility]. Patient stated that his primary care physician is Dr. Garcia. At discharge, the patient plans to return home and feels this is a safe discharge. CM discussed availability of home health, rehab services, and medical equipment. Patient declined SNF, IPR, and DME and stated that he is current with [facility]. ZACH signed and placed in chart. Patient stated that he has cane, walker, and wheelchair at home. Patient voiced no other needs at this time and is satisfied with DC plan. Transportation provider at discharge will be with Ava. DC IMM delivered, explained, signed by the patient, and placed in chart. Signed form also left with the patient. CM will continue to follow and will assist as needed with dc plans/needs. Appended by Nicola Glass on 12/20/2020 19:41 CDT: Patient stated that he followed with his physicians and was able to obtain his medications. Patient stated that he had to readmit because of a lack of healing form his surgical wound. It appears that this readmission was due to a surgical complication. CM will continue to follow and will assist as needed with dc plans/needs. DCP REVIEW SUMMARY ANTICIPATED D/C DATE: 12/20/2020 EXPECTED LOS : 1 CASE STATUS: DCP Initiated INITIAL REVIEW: 12/18/2020 INITIAL REVIEWER: Nicola Glass FINAL DISCHARGE DISPOSITION: : FINAL REVIEWER: FINAL REVIEW DATE: DCP Focus Questions & Answers DCP Evaluation QUESTION: ANSWER Patient gives permission to discuss discharge plans with: (name, relationship and number) : spouse, Ava James, Patient's ability to cope with chronic illness : d. No chronic illness Patient's current cognitive status: : *Oriented to person, place, situation, time and present Family / Caregiver's ability to cope with chronic illness: : a. Adequate (ability to meet patient's medical needs, ensures patient attends medical appts.) Patient and/or caregiver agree upon recommended discharge plan? : Yes Physical Status: : Independent with ADL's Family / Caregiver's ability to cope with chronic illness: : a. Adequate (ability to meet patient's medical needs, ensures patient attends medical appts.) Functional screen assessment: : Basic needs can adequately be met by self Does the patient have the ability to pay for or attain post discharge needs / services? : Yes Living Arrangements: : Home with Spouse/Significant Other Is there a likelihood that the patient will require additional services to return to the preadmission environment? : No Equipment needed for post hospitalization: : None Baseline cognitive status: : *Oriented to person, place, situation, time and present Patient with capacity for self-care or can be cared for in same environment as prior to hospitalization? : Yes Physical environment modification needed / anticipated for discharge: : No Medication Management: : Patient states can afford medications Medication Management: : Patient states can read and understand medication labels Pharmacy name(s): : [facility] Does Patient have transportation to get home and to follow-up medical appointments when discharged from the hospital? : Yes Would patient like to participate in any Care Coordination programs (if applicable): : Not applicable Does the patient have electricity at home? : Yes Does the patient have running water in their house? : Yes Equipment in use: : Cane - Single Leg Equipment in use: : Walker - Rolling Equipment in use: : Wheelchair Mental health screen: : No mental health history DCP Re-evaluation QUESTION: ANSWER Would patient like to participate in any Care Coordination programs (if applicable): : Not applicable PATIENT: THOR JAMES ENCOUNTER: [id number] MEDICAL RECORD#: [id number] ADMISSION DATE: 12/20/2020 DISCHARGE DATE: 12/20/2020 ATTENDING MD: GILLIAN LANDEROS : AGE: 60 MARITAL STATUS: M DC PLAN ID: [id number] FACILITY: [facility] PRINTED ON: 12/20/20 20:41 CT All edits/amendments must be made on the electronic document DICTATION DATE: 12/20/202040 HOME ADVISOR: JERMAINE 12/20/202040 RPT#: [id number] DC DATE:12/20/20 STATUS: DIS IN [facility] [address] [place] [address] END OF REPORT
--- NOTE | 2020-12-21 07:42 | OP ---
PATIENT NAME: THOR JAMES MEDICAL RECORD: [id number] :58 LOCATION:[facility] ADMISSION DATE:12/20/20 SURGEON: GILLIAN BECERRA DO DATE OF OPERATION: 12/20/2020 PROCEDURE PERFORMED: Left below-knee amputation stump incision, debridement to the level of the fascia, Kerecis application and wound VAC application. PREOPERATIVE DIAGNOSIS: Left below-knee amputation stump wound dehiscence. POSTOPERATIVE DIAGNOSIS: Left below-knee amputation stump wound dehiscence. INDICATIONS: The patient is a 60-year-old male who had a left below-knee amputation done, I believe about 3 weeks ago. He presented to clinic for his first followup and his incision had dehisced center of the whole thing down to the level of the dermis. Says the skin is very friable and due to his long-term steroid use, had some in the clinic, I believe this and set him up for surgery, supposed to do yesterday, but due to work time constraints was not able to do it, put him on for today. I informed him and his the risks of this including infection, bleeding, damage to nerves and vessels, need for further surgery, above-knee amputation, nonhealing wound and even and he signed consent. SURGEON: Gillian Becerra DO. DESCRIPTION OF PROCEDURE: The patient was taken to the operative suite, laid in supine position, given general anesthetic and LMA was placed, given 2 grams Ancef preoperatively. The left lower extremity was prepped and draped in sterile fashion. Timeout was performed, everyone was in agreeance with the correct side, site, patient and the procedure. I then used a 10 blade scalpel made a cleanup cut around the whole entire BKA stump site to get bleeding surfaces and then debrided any devitalized tissue down to the level of the fascia with a 10 blade scalpel. Once I did that, I irrigated with 3 liters normal saline and then sewed in a Kerecis patch then attempted to close the stump side a little more, but the sutures were through the skin as it was very friable and would not hold 2-0 Prolene sutures. I sutured in the Kerecis with a 4-0 Monocryl in a running stitch. I then cleaned the skin and then put on Cavilon and placed a Prevena Restor VAC on the stump site wrapping it up to the knee and around the knee then held good suction and the wound VAC held well. He was then awakened and taken to recovery in stable condition. BLOOD LOSS: Minimal. COMPLICATIONS: None. TRANSINT:[id number] Voice Confirmation ID: [id number] DOCUMENT ID: [id number] OPERATIVE REPORT [id number] THOR JAMES MICHAEL D, DO at 0742 CC: [id number] DICTATION DATE: 12/20/20 170 PRECISION FARMING COORDINATOR: 12/20/20 2241 DIS IN 12/20/20 [facility] [address] [place] [address]
--- NOTE | 2020-12-21 09:50 | MORECARE ---
CASE MANAGEMENT DISCHARGE SUMMARY PATIENT: THOR JAMES UNIT: [id number] ADM DATE: 12/20/20 AGE: 60 : 58 SEX: M ROOM/BED: D.2210 AUTHOR: VIMAL WOLF PHYSICIAN: REFERRING PHYSICIAN: GILLAIN BECERRA DO DATE OF SERVICE: 12/21/20 Case Management Discharge Planning Summary COMMENTS ENTERED DATE: 12/20/20 19:33 CT COMMENT TYPE: Discharge Planning REVIEWER: Nicola Glsas CM met with patient to complete DC plan and to evaluate needs. Patient lives independently with his spouse, Ava James, . Patient stated that his home is safe and has electricity and running water. Patient stated that the home has no steps to enter and he is able to manage entering his home without difficulty. Patient stated that he has no problems paying for medications and he fills his medications at [facility]. Patient stated that his primary care physician is Dr. Garcia. At discharge, the patient plans to return home and feels this is a safe discharge. CM discussed availability of home health, rehab services, and medical equipment. Patient declined SNF, IPR, and DME and stated that he is current with [facility]. ZACH signed and placed in chart. Patient stated that he has cane, walker, and wheelchair at home. Patient voiced no other needs at this time and is satisfied with DC plan. Transportation provider at discharge will be with Ava. DC IMM delivered, explained, signed by the patient, and placed in chart. Signed form also left with the patient. CM will continue to follow and will assist as needed with dc plans/needs. Appended by Nicola Glass on 12/20/2020 19:41 CDT: Patient stated that he followed with his physicians and was able to obtain his medications. Patient stated that he had to readmit because of a lack of healing form his surgical wound. It appears that this readmission was due to a surgical complication. CM will continue to follow and will assist as needed with dc plans/needs. DCP REVIEW SUMMARY ANTICIPATED D/C DATE: 12/20/2020 EXPECTED LOS : 1 CASE STATUS: DCP Initiated INITIAL REVIEW: 12/18/2020 INITIAL REVIEWER: Nicola Glass FINAL DISCHARGE DISPOSITION: : FINAL REVIEWER: FINAL REVIEW DATE: DCP Focus Questions & Answers DCP Evaluation QUESTION: ANSWER Patient and/or caregiver agree upon recommended discharge plan? : Yes Family / Caregiver's ability to cope with chronic illness: : a. Adequate (ability to meet patient's medical needs, ensures patient attends medical appts.) Patient's current cognitive status: : *Oriented to person, place, situation, time and present Patient's ability to cope with chronic illness : d. No chronic illness Patient gives permission to discuss discharge plans with: (name, relationship and number) : spouse, Ava James, Does the patient have the ability to pay for or attain post discharge needs / services? : Yes Functional screen assessment: : Basic needs can adequately be met by self Family / Caregiver's ability to cope with chronic illness: : a. Adequate (ability to meet patient's medical needs, ensures patient attends medical appts.) Physical Status: : Independent with ADL's Equipment needed for post hospitalization: : None Is there a likelihood that the patient will require additional services to return to the preadmission environment? : No Living Arrangements: : Home with Spouse/Significant Other Patient with capacity for self-care or can be cared for in same environment as prior to hospitalization? : Yes Baseline cognitive status: : *Oriented to person, place, situation, time and present Physical environment modification needed / anticipated for discharge: : No Medication Management: : Patient states can read and understand medication labels Medication Management: : Patient states can afford medications Pharmacy name(s): : [facility] Does Patient have transportation to get home and to follow-up medical appointments when discharged from the hospital? : Yes Would patient like to participate in any Care Coordination programs (if applicable): : Not applicable Does the patient have electricity at home? : Yes Does the patient have running water in their house? : Yes Equipment in use: : Wheelchair Equipment in use: : Walker - Rolling Equipment in use: : Cane - Single Leg Mental health screen: : No mental health history DCP Re-evaluation QUESTION: ANSWER Would patient like to participate in any Care Coordination programs (if applicable): : Not applicable PATIENT: THOR JAMES ENCOUNTER: [id number] MEDICAL RECORD#: [id number] ADMISSION DATE: 12/20/2020 DISCHARGE DATE: 12/20/2020 ATTENDING MD: GILLIAN LANDEROS : AGE: 60 MARITAL STATUS: M DC PLAN ID: [id number] FACILITY: [facility] PRINTED ON: 12/21/20 9:50 CT All edits/amendments must be made on the electronic document DICTATION DATE: 12/21/20949 KITCHEN STEWARDESS: JERMAINE 12/21/2050 RPT#: [id number] DC DATE:12/20/20 STATUS: DIS IN [facility] [address] [place] [address] END OF REPORT
--- NOTE | 2020-12-22 14:27 | MORECARE ---
CASE MANAGEMENT DISCHARGE SUMMARY PATIENT: THOR JAMES UNIT: [id number] ADM DATE: 12/20/20 AGE: 60 : 58 SEX: M ROOM/BED: D.2210 AUTHOR: VIMAL WOLF PHYSICIAN: REFERRING PHYSICIAN: GILLIAN BECERRA DO DATE OF SERVICE: 12/22/20 Case Management Discharge Planning Summary COMMENTS ENTERED DATE: 12/20/20 19:33 CT COMMENT TYPE: Discharge Planning REVIEWER: Nicola Glass CM met with patient to complete DC plan and to evaluate needs. Patient lives independently with his spouse, Ava James, . Patient stated that his home is safe and has electricity and running water. Patient stated that the home has no steps to enter and he is able to manage entering his home without difficulty. Patient stated that he has no problems paying for medications and he fills his medications at [facility]. Patient stated that his primary care physician is Dr. Garcia. At discharge, the patient plans to return home and feels this is a safe discharge. CM discussed availability of home health, rehab services, and medical equipment. Patient declined SNF, IPR, and DME and stated that he is current with [facility]. ZACH signed and placed in chart. Patient stated that he has cane, walker, and wheelchair at home. Patient voiced no other needs at this time and is satisfied with DC plan. Transportation provider at discharge will be with Ava. DC IMM delivered, explained, signed by the patient, and placed in chart. Signed form also left with the patient. CM will continue to follow and will assist as needed with dc plans/needs. Appended by Nicola Glass on 12/20/2020 19:41 CDT: Patient stated that he followed with his physicians and was able to obtain his medications. Patient stated that he had to readmit because of a lack of healing form his surgical wound. It appears that this readmission was due to a surgical complication. CM will continue to follow and will assist as needed with dc plans/needs. DCP REVIEW SUMMARY ANTICIPATED D/C DATE: 12/20/2020 EXPECTED LOS : 1 CASE STATUS: DCP Initiated INITIAL REVIEW: 12/18/2020 INITIAL REVIEWER: Nicola Glass FINAL DISCHARGE DISPOSITION: : FINAL REVIEWER: FINAL REVIEW DATE: DCP Focus Questions & Answers DCP Evaluation QUESTION: ANSWER Patient gives permission to discuss discharge plans with: (name, relationship and number) : spouse, Ava James, Patient's ability to cope with chronic illness : d. No chronic illness Patient's current cognitive status: : *Oriented to person, place, situation, time and present Family / Caregiver's ability to cope with chronic illness: : a. Adequate (ability to meet patient's medical needs, ensures patient attends medical appts.) Patient and/or caregiver agree upon recommended discharge plan? : Yes Physical Status: : Independent with ADL's Family / Caregiver's ability to cope with chronic illness: : a. Adequate (ability to meet patient's medical needs, ensures patient attends medical appts.) Functional screen assessment: : Basic needs can adequately be met by self Does the patient have the ability to pay for or attain post discharge needs / services? : Yes Living Arrangements: : Home with Spouse/Significant Other Is there a likelihood that the patient will require additional services to return to the preadmission environment? : No Equipment needed for post hospitalization: : None Baseline cognitive status: : *Oriented to person, place, situation, time and present Patient with capacity for self-care or can be cared for in same environment as prior to hospitalization? : Yes Physical environment modification needed / anticipated for discharge: : No Medication Management: : Patient states can afford medications Medication Management: : Patient states can read and understand medication labels Pharmacy name(s): : [facility] Does Patient have transportation to get home and to follow-up medical appointments when discharged from the hospital? : Yes Would patient like to participate in any Care Coordination programs (if applicable): : Not applicable Does the patient have electricity at home? : Yes Does the patient have running water in their house? : Yes Equipment in use: : Cane - Single Leg Equipment in use: : Walker - Rolling Equipment in use: : Wheelchair Mental health screen: : No mental health history DCP Re-evaluation QUESTION: ANSWER Would patient like to participate in any Care Coordination programs (if applicable): : Not applicable PATIENT: THOR JAMES ENCOUNTER: [id number] MEDICAL RECORD#: [id number] ADMISSION DATE: 12/20/2020 DISCHARGE DATE: 12/20/2020 ATTENDING MD: GILLIAN LANDEROS : AGE: 60 MARITAL STATUS: M DC PLAN ID: [id number] FACILITY: [facility] PRINTED ON: 12/22/20 14:26 CT All edits/amendments must be made on the electronic document DICTATION DATE: 12/22/201425 MEASUREMENT SUPERVISOR: JERMAINE 12/22/201425 RPT#: [id number] DC DATE:12/20/20 STATUS: DIS IN [facility] [address] [place] [address] END OF REPORT
== END 2020-12-20 20:32 | disposition home health service (06) | DRG 464 ==
LOC: D.MS 16:28 → OBSVTIME 16:30 → D.MS 12-20 16:51
PROVIDERS: Emergency Medicine; ADMIT Orthopaedic Surgery; ATTEND Orthopaedic Surgery
PROC: 0JBP0ZZ Excision of Left Lower Leg Subcutaneous Tissue and Fascia, Open Approach (ICD-10-PCS; 2020-12-20)
PROC: 2W1MX6Z Compression of Left Lower Extremity using Pressure Dressing (ICD-10-PCS; 2020-12-20)
PROC: 0HRLXJZ Replacement of Left Lower Leg Skin with Synthetic Substitute, External Approach (ICD-10-PCS; principal; 2020-12-20 10:15)
DX: T87.81 Dehiscence of amputation stump (principal); K50.90 Crohn's disease, unspecified, without complications; E11.65 Type 2 diabetes mellitus with hyperglycemia; J44.9 Chronic obstructive pulmonary disease, unspecified; E78.5 Hyperlipidemia, unspecified; K21.9 Gastro-esophageal reflux disease without esophagitis; N40.0 Benign prostatic hyperplasia without lower urinary tract symptoms; G47.33 Obstructive sleep apnea (adult) (pediatric); I73.9 Peripheral vascular disease, unspecified; L40.9 Psoriasis, unspecified; I50.9 Heart failure, unspecified; E11.40 Type 2 diabetes mellitus with diabetic neuropathy, unspecified